=== PATIENT | male | born 1940 | race African-American/Black ===

== ENCOUNTER 2017-03-10 13:07 | Inpatient (IN) | payer OTHER, MEDICARE ==
[2017-03-10 13:38] LABS: HEMATOCRIT 49.7 % (39.0-51.0); HEMOGLOBIN 15.2 GM/DL (13.0-17.0); MEAN CORPUSCULAR HEMOGLOBIN 32.1 PG (27.0-34.0); MEAN CORPUSCULAR HGB CONC 30.5 % (32.0-36.0); MEAN PLATELET VOLUME 9.6 FL (7.0-11.0); PLATELET COUNT 272 TH/MM3 (150-450); RED BLOOD COUNT 4.73 MIL/MM3 (4.50-5.90); RED CELL DISTRIBUTION WIDTH 15.1 % (11.6-17.2); WHITE BLOOD COUNT 23.6 TH/MM3 (4.0-11.0)
[2017-03-10 13:43] LABS: HEMO FLAGS AUTO DIFF
[2017-03-10 13:58] LABS: ALBUMIN 3.5 GM/DL (3.4-5.0); ALT (GPT) 19 U/L (12-78); ANION GAP 28 MEQ/L (5-15); AST (GOT) 39 U/L (15-37); BICARBONATE 7.2 MEQ/L (21.0-32.0); BLOOD UREA NITROGEN 60 MG/DL (7-18); CALCIUM 9.7 MG/DL (8.5-10.1); CHLORIDE 101 MEQ/L (98-107); CREATININE 2.76 MG/DL (0.60-1.30); GLOMERULAR FILTRATION RATE 27 ML/MIN (>89); PHOSPHORUS 8.4 MG/DL (2.5-4.9); POTASSIUM 6.1 MEQ/L (3.5-5.1); SODIUM (NA) 136 MEQ/L (136-145)
[2017-03-10 14:06] LABS: ALKALINE PHOSPHATASE 126 U/L (45-117); LIPASE 7740 U/L (73-393); TOTAL BILIRUBIN ADULT 0.6 MG/DL (0.2-1.0); TROPONIN I LESS THAN 0.02 NG/ML (0.02-0.05)
[2017-03-10 14:08] LABS: GLUCOSE,RANDOM 568 MG/DL (74-106)
[2017-03-10] MEDS: SODIUM CHLOR 0.9% 1000 ML INJ 800 ML IV (14:11)
[2017-03-10] MEDS: SODIUM CHLOR 0.9% 1000 ML INJ 1,000 ML IV ×4 (14:11→21:00)
[2017-03-10 14:16] LABS: BETA-HYDROXYBUTYRATE 15.21 MMOL/L (0.00-0.39); CREATINE KINASE 1023 U/L (39-308)
[2017-03-10 14:27] LABS: BANDS 3 % (0-6); EOSINOPHILS 1 % (0-4); LYMPHOCYTES 1 % (9-44); METAMYELOCYTES 1 % (0-1); MONOCYTES 7 % (0-8); MYELOCYTES 1 % (0-0); NEUTROPHIL # MANUAL DIFF 21.5 TH/MM3 (1.8-7.7); POLYS (SEG NEUTROPHILS) 86 % (16-70); WBC DIFF SAMPLE 100
[2017-03-10 14:28] LABS: PLATELET ESTIMATE SMEAR NORMAL (NORMAL); PLATELET MORPHOLOGY NORMAL (NORMAL); SCAN/DIFF FINAL DIFF MANUAL
[2017-03-10] MEDS ORDERED: DEXT 5%-NACL 0.9% 1000 ML INJ 1,000 ML IV (14:33)
[2017-03-10 14:39] LABS: LACTIC ACID SEPSIS PROTOCOL 2.2 mmol/L (0.4-2.0)
[2017-03-10 14:40] LABS: BACTERIA, URINE OCC /hpf; BILIRUBIN, URINE NEG (NEG); BLOOD, URINE MOD (NEG); COMMENT (UR) CATH-CULTURE IND; CULTURE IF INDICATED CATH CULTURE IND; GLUCOSE,URINE 1000 mg/dL (NEG); HYALINE CAST, URINE 90 /lpf (RARE); KETONE, URINE 80 mg/dL (NEG); MUCUS URINE FEW /lpf (OCC); NITRITE,URINE NEG (NEG); PH, URINE 5.5 (5.0-8.5); SQUAMOUS EPITHELIAL CELL URINE 1 /hpf (0-5); URINE COLOR YELLOW (YELLW/STRAW); URINE LEUKOCYTE ESTERASE LARGE (NEG); WHITE BLOOD CELL CLUMPS MANY
[2017-03-10 14:50] LABS: BLOOD GAS VENOUS BASE EXCESS -22.7 mmol/L (-2-2); BLOOD GAS VENOUS HCO3 7 mmol/L (22-26); BLOOD GAS VENOUS O2 CONTENT 12.3 Vol % (9.0-17.0); BLOOD GAS VENOUS O2 HGB SAT 71 % (70-76); BLOOD GAS VENOUS PCO2 29 mmHg (44-48); BLOOD GAS VENOUS PO2 54 mmHg (35-40); BLOOD GAS VENOUS pH 6.98 (7.360-7.400)
[2017-03-10 14:51] LABS: CRITICAL VALUE YES; DRAW SITE CENTRAL LINE; FIO2 100 %; LITER FLOW 15 L/M; STAT YES; TEMP CORR TO 98.6
[2017-03-10] MEDS: LIDOCAINE HCL 2% 50 ML VIAL INFIL (15:00)
[2017-03-10] MEDS: SODIUM BICARBONATE 8.4% INJ 50 MEQ/50 ML SYR IV PUSH ×2 (15:17→15:18)
[2017-03-10] MEDS: INSULIN HUMAN REGULAR 1,000 UNITS/10 ML VIAL IV PUSH ×2 (15:17→16:45)
[2017-03-10 15:35] LABS: LACTIC ACID GHOST NOT REPORTABLE
[2017-03-10 15:59] LABS: CKMB 16.2 NG/ML (0.5-3.6); CKMB % 1.6 % (0.0-4.0)
[2017-03-10] MEDS ORDERED: ONDANSETRON HCL 4 MG/2 ML VIAL IV PUSH (16:00)
[2017-03-10] MEDS ORDERED: BISACODYL 10 MG SUPP RECTAL (16:00)
[2017-03-10] MEDS: RESP: ALBUTEROL 2.5 MG/IPRATROPIUM 0.5 MG NEB (SCH) INH ×2 (16:00→20:35)
[2017-03-10] MEDS ORDERED: SENNOSIDES 8.6 MG TAB PO (16:00)
[2017-03-10] MEDS: MISCELLANEOUS NURSING INFORMATION XX (16:00)
[2017-03-10] MEDS ORDERED: SODIUM CHLORIDE 0.9% FLUSH 10 ML FLUSH IV FLUSH ×3 (16:00→21:00)
[2017-03-10] MEDS ORDERED: RESP: ALBUTEROL 2.5 MG/3 ML NEB (PRN) INH (16:00)
[2017-03-10] MEDS ORDERED: MAGNESIUM HYDROXIDE SUSP 30 ML CUP PO (16:00)
[2017-03-10] MEDS ORDERED: LACTULOSE SYRUP 20 GM/30 ML CUP PO (16:00)
[2017-03-10] MEDS: INSULIN REGULAR (IV INFUSION) 100 UNITS in SODIUM CHLORIDE 0.9% INJ 99 ML IV (16:00)
[2017-03-10] MEDS ORDERED: CHLORHEXIDINE GLUCONATE 2 % 1 PACK (2 CLOTHS) TOP (16:00)
[2017-03-10] MEDS ORDERED: SODIUM PHOSPHATE INJ 15 MMOL in SODIUM CHLORIDE 0.9% INJ 100 ML IV (16:15)
[2017-03-10] MEDS ORDERED: Vancomycin Consult Pharmacy 1 EA OTHER (16:15)
[2017-03-10] MEDS ORDERED: FLUMAZENIL 0.5 MG/5 ML VIAL IV PUSH (16:15)
[2017-03-10] MEDS ORDERED: LORazepam 1 MG TAB PO (16:15)
[2017-03-10] MEDS ORDERED: POTASSIUM CHLOR 20 MEQ PREMIX 100 ML IV ×6 (16:15)
[2017-03-10] MEDS ORDERED: TERBUTALINE INJ 1 MG/ML AMP SQ (16:15)
[2017-03-10] MEDS ORDERED: POTASSIUM CHLOR 40 MEQ PREMIX 100 ML IV (16:15)
[2017-03-10] MEDS ORDERED: LORazepam 2 MG TAB PO (16:15)
[2017-03-10 16:28] LABS: LACTIC ACID SEPSIS REPEAT 2.2 mmol/L (0.4-2.0)
[2017-03-10 16:39] LABS: APTT (PATIENT) 20.2 SEC (24.3-30.1); INTERNATIONAL NORMALIZED RATIO 1.3 RATIO; PROTHROMBIN TIME - PATIENT 12.7 SEC (9.8-11.6)
[2017-03-10] MEDS: SODIUM BICARBONATE 8.4% SOLN 50 MEQ/50 ML VIAL SLOW IVP (16:45)
[2017-03-10] MEDS: CALCIUM GLUCONATE 10% 1 GM/10 ML VIAL SLOW IVP (17:00)
[2017-03-10] MEDS: ARTIFICIAL TEARS OPTH SOLN 15 ML BTL EACH EYE (18:00)
[2017-03-10] MEDS: MULTIVITAMIN INJ 10 ML, THIAMINE INJ 100 MG, FOLIC ACID INJ 1 MG in SODIUM CHLORID 0.9%... IV (18:00)
[2017-03-10] MEDS: PIPERACIL-TAZO 2.25 GM PREMIX 50 ML IV (18:00)
[2017-03-10] MEDS: VANCOMYCIN 1,000 MG/NS 250 ML IV (18:00)
[2017-03-10] MEDS: HEPARIN SODIUM - SQ 10,000 UNITS/ML VIAL SQ (18:00)
[2017-03-10] MEDS: DEXT 5%-NACL 0.9% 1000 ML INJ 1,000 ML IV ×2 (19:48→21:29)
[2017-03-10 19:58] LABS: MRSA PCR SURVEILLANCE MRSA NOT DETECTED (NOT DETECT)
[2017-03-10 21:17] LABS: ANION GAP 18 MEQ/L (5-15); BICARBONATE 14.6 MEQ/L (21.0-32.0); CALCIUM 7.8 MG/DL (8.5-10.1); CHLORIDE 121 MEQ/L (98-107); CREATININE 1.78 MG/DL (0.60-1.30); GLOMERULAR FILTRATION RATE 45 ML/MIN (>89); GLUCOSE,RANDOM 105 MG/DL (74-106); POTASSIUM 3.3 MEQ/L (3.5-5.1); SODIUM (NA) 154 MEQ/L (136-145)
[2017-03-10 21:18] LABS: ALCOHOL LESS THAN 3 MG/DL (0-5); BLOOD UREA NITROGEN 48 MG/DL (7-18)
[2017-03-10] MEDS: DOCUSATE SODIUM 50 MG/SENNA 8.6 MG TAB PO (21:38)
[2017-03-10] MEDS: SODIUM CHLORIDE 0.9% FLUSH 10 ML FLUSH IV FLUSH (21:38)
[2017-03-10 22:13] LABS: HEMOGLOBIN A1C 13.9 % (4.3-6.0); HEMOGLOBIN A1a 1.7 %; HEMOGLOBIN A1b 1.2 %; HEMOGLOBIN Ao 70.8 %; HEMOGLOBIN F 2.3 %; HEMOGLOBIN LA1C 3.9 %
[2017-03-10 23:14] LABS: AMPHETAMINE, URINE NEG (NEG); BARBITURATES, URINE NEG (NEG); BENZODIAZEPINE,URINE NEG (NEG); CANNABINOIDS, URINE NEG (NEG); COCAINE, URINE NEG (NEG)
[2017-03-10 23:15] LABS: CREATININE, RANDOM URINE 62.6 MG/DL
[2017-03-10 23:15] LABS: SODIUM,RANDOM URINE 40 MEQ/L
[2017-03-11] MEDS: INSULIN REGULAR (IV INFUSION) 100 UNITS in SODIUM CHLORIDE 0.9% INJ 99 ML IV ×3 (00:07→17:34)
[2017-03-11] MEDS: PIPERACIL-TAZO 2.25 GM PREMIX 50 ML IV ×4 (00:08→17:25)
[2017-03-11] MEDS: POTASSIUM CHLOR 40 MEQ PREMIX 100 ML IV ×2 (00:14→02:05)
[2017-03-11] MEDS: VANCOMYCIN 1,000 MG/NS 250 ML IV (00:48)
[2017-03-11] MEDS: DEXT 5%-NACL 0.9% 1000 ML INJ 1,000 ML IV ×2 (02:05→10:18)
[2017-03-11 02:37] LABS: AUTOMATED NEUTROPHIL # 15.1 TH/MM3 (1.8-7.7); BASOPHIL % 0.2 % (0.0-2.0); HEMATOCRIT 37.5 % (39.0-51.0); HEMOGLOBIN 12.3 GM/DL (13.0-17.0); LYMPH % 4.7 % (9.0-44.0); LYMPHOCYTE # 0.8 TH/MM3 (1.0-4.8); MEAN CELL VOLUME 98.3 FL (80.0-100.0); MEAN CORPUSCULAR HEMOGLOBIN 32.3 PG (27.0-34.0); MEAN CORPUSCULAR HGB CONC 32.9 % (32.0-36.0); MEAN PLATELET VOLUME 9.4 FL (7.0-11.0); MONO % 2.9 % (0.0-8.0); MONOCYTE # 0.5 TH/MM3 (0-0.9); NEUT % 92.2 % (16.0-70.0); PLATELET COUNT 199 TH/MM3 (150-450); RED BLOOD COUNT 3.82 MIL/MM3 (4.50-5.90); RED CELL DISTRIBUTION WIDTH 14.4 % (11.6-17.2); WHITE BLOOD COUNT 16.4 TH/MM3 (4.0-11.0)
[2017-03-11 02:39] LABS: HEMO FLAGS AUTO DIFF
[2017-03-11] MEDS: RESP: ALBUTEROL 2.5 MG/IPRATROPIUM 0.5 MG NEB (SCH) INH ×4 (02:48→20:20)
[2017-03-11 02:57] LABS: ANION GAP 17 MEQ/L (5-15); BICARBONATE 13.6 MEQ/L (21.0-32.0); BLOOD UREA NITROGEN 40 MG/DL (7-18); CALCIUM 7.7 MG/DL (8.5-10.1); CHLORIDE 125 MEQ/L (98-107); CREATININE 1.61 MG/DL (0.60-1.30); GLOMERULAR FILTRATION RATE 51 ML/MIN (>89); GLUCOSE,RANDOM 289 MG/DL (74-106); MAGNESIUM 1.8 MG/DL (1.5-2.5); PHOSPHORUS 0.5 MG/DL (2.5-4.9); POTASSIUM 3.5 MEQ/L (3.5-5.1)
[2017-03-11 02:59] LABS: SODIUM (NA) 156 MEQ/L (136-145)
[2017-03-11] MEDS: CHLORHEXIDINE GLUCONATE 2 % 1 PACK (2 CLOTHS) TOP (03:00)
[2017-03-11] MEDS: SODIUM CHLOR 0.9% 1000 ML INJ 1,000 ML IV ×6 (03:00→20:31)
[2017-03-11 03:06] LABS: BANDS 6 % (0-6); LYMPHOCYTES 4 % (9-44); METAMYELOCYTES 1 % (0-1); MONOCYTES 2 % (0-8); MYELOCYTES 1 % (0-0); NEUTROPHIL # MANUAL DIFF 15.4 TH/MM3 (1.8-7.7); POLYS (SEG NEUTROPHILS) 86 % (16-70); SCAN/DIFF FINAL DIFF MANUAL; WBC DIFF SAMPLE 100
[2017-03-11 03:07] LABS: PLATELET MORPHOLOGY NORMAL (NORMAL)
[2017-03-11 03:08] LABS: PLATELET ESTIMATE SMEAR NORMAL (NORMAL)
[2017-03-11 03:27] LABS: BETA-HYDROXYBUTYRATE 5.52 MMOL/L (0.00-0.39)
[2017-03-11 03:39] LABS: URINE FOR EOSINOPHILS NONE SEEN /HPF (NONE SEEN)
[2017-03-11] MEDS: HEPARIN SODIUM - SQ 10,000 UNITS/ML VIAL SQ ×2 (04:39→20:32)
[2017-03-11 07:36] LABS: POTASSIUM 3.9 MEQ/L (3.5-5.1)
[2017-03-11] MEDS: ARTIFICIAL TEARS OPTH SOLN 15 ML BTL EACH EYE ×4 (09:00→18:00)
[2017-03-11] MEDS: MULTIVITAMIN INJ 10 ML, THIAMINE INJ 100 MG, FOLIC ACID INJ 1 MG in SODIUM CHLORID 0.9%... IV (10:16)
[2017-03-11] MEDS: SODIUM CHLORIDE 0.9% FLUSH 10 ML FLUSH IV FLUSH ×2 (10:18→20:33)
[2017-03-11] MEDS: PANTOPRAZOLE SODIUM 40 MG VIAL IV PUSH (10:19)
[2017-03-11] MEDS: DOCUSATE SODIUM 50 MG/SENNA 8.6 MG TAB PO ×2 (10:19→20:33)
[2017-03-11] MEDS: HALOPERIDOL LACTATE 5 MG/ML AMP IM (10:26)
[2017-03-11] MEDS: POTASSIUM PHOSPHATE INJ 30 MMOL in SODIUM CHLOR 0.9% 250 ML INJ 250 ML IV (12:20)
[2017-03-11] MEDS: MIDAZOLAM HCL 2 MG/2 ML VIAL IV PUSH (12:30)
[2017-03-11] MEDS: SODIUM BICARBONATE 8.4% INJ 50 MEQ/50 ML SYR IV PUSH (13:23)
[2017-03-11] MEDS: MAGNESIUM SULFATE 1 GM PREMIX 100 ML IV ×2 (13:24→16:16)
[2017-03-11] MEDS: DEXMEDETOMIDINE INJ 200 MCG in SODIUM CHLORIDE 0.9% INJ 50 ML IV ×2 (13:25→21:01)
[2017-03-11] MEDS: DEXTROSE 5%-NACL 0.225% INJ 1,000 ML IV ×2 (13:40→20:32)
[2017-03-11 18:39] LABS: ANION GAP 17 MEQ/L (5-15); BLOOD UREA NITROGEN 24 MG/DL (7-18); CALCIUM 7.8 MG/DL (8.5-10.1); CHLORIDE 122 MEQ/L (98-107); CREATININE 1.06 MG/DL (0.60-1.30); GLOMERULAR FILTRATION RATE 82 ML/MIN (>89); GLUCOSE,RANDOM 362 MG/DL (74-106); PHOSPHORUS 2.2 MG/DL (2.5-4.9); POTASSIUM 3.8 MEQ/L (3.5-5.1); SODIUM (NA) 154 MEQ/L (136-145)
[2017-03-11] MEDS ORDERED: TERBUTALINE INJ 1 MG/ML AMP SQ (18:45)
[2017-03-11] MEDS ORDERED: PHENYLEPHRINE INJ 160 MG in DEXTROSE 5% IN WATE 500 ML INJ 484 ML IV (18:45)
[2017-03-11] MEDS: MORPHINE SULFATE 2 MG/ML INJ IV PUSH (21:30)
[2017-03-12] MEDS: PIPERACIL-TAZO 2.25 GM PREMIX 50 ML IV ×4 (00:29→18:54)
[2017-03-12] MEDS: SODIUM CHLOR 0.9% 1000 ML INJ 1,000 ML IV ×5 (00:29→15:45)
[2017-03-12] MEDS: RESP: ALBUTEROL 2.5 MG/IPRATROPIUM 0.5 MG NEB (SCH) INH ×4 (03:19→20:16)
[2017-03-12] MEDS: CHLORHEXIDINE GLUCONATE 2 % 1 PACK (2 CLOTHS) TOP (04:00)
[2017-03-12] MEDS: DEXMEDETOMIDINE INJ 200 MCG in SODIUM CHLORIDE 0.9% INJ 50 ML IV ×2 (04:03→15:24)
[2017-03-12 04:38] LABS: BASOPHIL % 0.2 % (0.0-2.0); HEMATOCRIT 33.7 % (39.0-51.0); HEMOGLOBIN 11.3 GM/DL (13.0-17.0); LYMPH % 5.8 % (9.0-44.0); LYMPHOCYTE # 0.8 TH/MM3 (1.0-4.8); MEAN CELL VOLUME 97.1 FL (80.0-100.0); MEAN CORPUSCULAR HEMOGLOBIN 32.5 PG (27.0-34.0); MEAN CORPUSCULAR HGB CONC 33.5 % (32.0-36.0); MEAN PLATELET VOLUME 9.9 FL (7.0-11.0); MONO % 6.7 % (0.0-8.0); MONOCYTE # 0.9 TH/MM3 (0-0.9); NEUT % 87.3 % (16.0-70.0); PLATELET COUNT 124 TH/MM3 (150-450); RED BLOOD COUNT 3.47 MIL/MM3 (4.50-5.90); RED CELL DISTRIBUTION WIDTH 14.3 % (11.6-17.2); WHITE BLOOD COUNT 13.8 TH/MM3 (4.0-11.0)
[2017-03-12 04:42] LABS: HEMO FLAGS AUTO DIFF
[2017-03-12 05:00] LABS: ALBUMIN 2.2 GM/DL (3.4-5.0); ALKALINE PHOSPHATASE 83 U/L (45-117); ALT (GPT) 22 U/L (12-78); ANION GAP 11 MEQ/L (5-15); AST (GOT) 56 U/L (15-37); BETA-HYDROXYBUTYRATE 0.08 MMOL/L (0.00-0.39); BLOOD UREA NITROGEN 16 MG/DL (7-18); CALCIUM 7.3 MG/DL (8.5-10.1); CHLORIDE 122 MEQ/L (98-107); CREATININE 0.96 MG/DL (0.60-1.30); GLOMERULAR FILTRATION RATE 92 ML/MIN (>89); GLUCOSE,RANDOM 91 MG/DL (74-106); MAGNESIUM 1.6 MG/DL (1.5-2.5); PHOSPHORUS 1.5 MG/DL (2.5-4.9); POTASSIUM 3.5 MEQ/L (3.5-5.1); RANDOM VANCOMYCIN 7.3 COMMENT; SODIUM (NA) 152 MEQ/L (136-145); TOTAL BILIRUBIN ADULT 0.4 MG/DL (0.2-1.0); TOTAL PROTEIN 5.8 GM/DL (6.4-8.2)
[2017-03-12] MEDS: DEXTROSE 5%-NACL 0.225% INJ 1,000 ML IV ×3 (05:18→21:52)
[2017-03-12] MEDS: HEPARIN SODIUM - SQ 10,000 UNITS/ML VIAL SQ ×2 (05:18→18:54)
[2017-03-12 05:23] LABS: BANDS 11 % (0-6); LYMPHOCYTES 5 % (9-44); METAMYELOCYTES 2 % (0-1); MONOCYTES 8 % (0-8); POLYS (SEG NEUTROPHILS) 74 % (16-70); WBC DIFF SAMPLE 100
[2017-03-12 05:24] LABS: ACANTHOCYTES OCC (NORMAL); PLATELET ESTIMATE SMEAR LOW (NORMAL); PLATELET MORPHOLOGY NORMAL (NORMAL); SCAN/DIFF FINAL DIFF MANUAL
[2017-03-12] MEDS: MULTIVITAMIN INJ 10 ML, THIAMINE INJ 100 MG, FOLIC ACID INJ 1 MG in SODIUM CHLORID 0.9%... IV (08:18)
[2017-03-12] MEDS: PANTOPRAZOLE SODIUM 40 MG VIAL IV PUSH (08:19)
[2017-03-12] MEDS: DOCUSATE SODIUM 50 MG/SENNA 8.6 MG TAB PO ×2 (08:19→21:00)
[2017-03-12] MEDS: SODIUM CHLORIDE 0.9% FLUSH 10 ML FLUSH IV FLUSH ×2 (08:19→21:51)
[2017-03-12] MEDS: ARTIFICIAL TEARS OPTH SOLN 15 ML BTL EACH EYE ×3 (09:00→18:00)
[2017-03-12] MEDS: HALOPERIDOL LACTATE 5 MG/ML AMP IM (10:23)
[2017-03-12] MEDS: VANCOMYCIN INJ 750 MG in SODIUM CHLOR 0.9% 250 ML INJ 250 ML IV (11:17)
[2017-03-12] MEDS: SODIUM PHOSPHATE INJ 15 MMOL in SODIUM CHLORIDE 0.9% INJ 100 ML IV (14:52)
[2017-03-12] MEDS: DC Insulin drip 2 hrs post basal insulin dose (16:45)
[2017-03-12] MEDS ORDERED: GLUCAGON 1 MG/ML VIAL OTHER (16:45)
[2017-03-12] MEDS: DC previous DKA orders (HMC 1917) (16:45)
[2017-03-12] MEDS: INSULIN DETEMIR 100 UNITS/ML VIAL SQ (18:55)
[2017-03-12] MEDS: FLUCONAZOLE 200 MG PREMIX BAG 100 ML IV (18:55)
[2017-03-12] MEDS: chlordiazePOXIDE 25 MG CAP PO (18:56)
[2017-03-12 20:28] LABS: CREATINE KINASE 921 U/L (39-308)
[2017-03-12 20:44] LABS: CKMB 11.7 NG/ML (0.5-3.6); CKMB % 1.3 % (0.0-4.0)
[2017-03-12] MEDS: INSULIN ASPART SUPPLEMENTAL SCALE SQ (21:00)
[2017-03-13] MEDS: chlordiazePOXIDE 25 MG CAP PO ×4 (00:27→23:17)
[2017-03-13] MEDS: PIPERACIL-TAZO 2.25 GM PREMIX 50 ML IV ×5 (00:27→23:17)
[2017-03-13] MEDS: MORPHINE SULFATE 2 MG/ML INJ IV PUSH (01:45)
[2017-03-13] MEDS: CHLORHEXIDINE GLUCONATE 2 % 1 PACK (2 CLOTHS) TOP (04:00)
[2017-03-13] MEDS: RESP: ALBUTEROL 2.5 MG/IPRATROPIUM 0.5 MG NEB (SCH) INH ×4 (04:02→19:56)
[2017-03-13 04:37] LABS: HEMATOCRIT 28.2 % (39.0-51.0); HEMOGLOBIN 9.9 GM/DL (13.0-17.0); MEAN CELL VOLUME 94.8 FL (80.0-100.0); MEAN CORPUSCULAR HEMOGLOBIN 33.3 PG (27.0-34.0); MEAN CORPUSCULAR HGB CONC 35.1 % (32.0-36.0); MEAN PLATELET VOLUME 9.6 FL (7.0-11.0); PLATELET COUNT 98 TH/MM3 (150-450); RED BLOOD COUNT 2.97 MIL/MM3 (4.50-5.90); RED CELL DISTRIBUTION WIDTH 14.4 % (11.6-17.2); WHITE BLOOD COUNT 6.8 TH/MM3 (4.0-11.0)
[2017-03-13 04:43] LABS: REVIEW FLAG FINAL
[2017-03-13] MEDS: HEPARIN SODIUM - SQ 10,000 UNITS/ML VIAL SQ ×2 (05:38→17:16)
[2017-03-13 06:23] LABS: ANION GAP 8 MEQ/L (5-15); BICARBONATE 21.7 MEQ/L (21.0-32.0); BLOOD UREA NITROGEN 11 MG/DL (7-18); CALCIUM 6.8 MG/DL (8.5-10.1); CHLORIDE 115 MEQ/L (98-107); CREATINE KINASE 639 U/L (39-308); CREATININE 0.66 MG/DL (0.60-1.30); GLOMERULAR FILTRATION RATE 142 ML/MIN (>89); GLUCOSE,RANDOM 79 MG/DL (74-106); SODIUM (NA) 145 MEQ/L (136-145)
[2017-03-13 06:37] LABS: POTASSIUM 2.9 MEQ/L (3.5-5.1)
[2017-03-13 07:06] LABS: CALCIUM-PROTEIN CORRECTED 8.1 MG/DL (8.5-10.1); CKMB 6.8 NG/ML (0.5-3.6); CKMB % 1.1 % (0.0-4.0); TOTAL PROTEIN 4.6 GM/DL (6.4-8.2)
[2017-03-13] MEDS: INSULIN ASPART SUPPLEMENTAL SCALE SQ ×4 (08:00→21:00)
[2017-03-13] MEDS: DEXTROSE 50% IN WATER 50 ML VIAL(D50) IV PUSH ×2 (08:29→08:30)
[2017-03-13] MEDS ORDERED: POTASSIUM PHOSPHATE MONOBASIC 500 MG TAB PO/TUBE (08:30)
[2017-03-13] MEDS ORDERED: POTASSIUM CHLOR 20 MEQ PREMIX 100 ML IV ×2 (08:30)
[2017-03-13] MEDS ORDERED: MAGNESIUM SULFATE INJ 2 GM in SODIUM CHLORIDE 0.9% INJ 96 ML IV (08:30)
[2017-03-13] MEDS ORDERED: MAGNESIUM OXIDE 400 MG TAB PO (08:30)
[2017-03-13] MEDS ORDERED: POTASSIUM CHLORIDE 25 MEQ EFFERVESCENT TAB PO (08:30)
[2017-03-13] MEDS ORDERED: SODIUM PHOSPHATE INJ 30 MMOL in SODIUM CHLOR 0.9% 250 ML INJ 240 ML IV (08:30)
[2017-03-13] MEDS ORDERED: POTASSIUM PHOSPHATE MONOBASIC 500 MG TAB PO (08:30)
[2017-03-13] MEDS ORDERED: POTASSIUM CHLOR 40 MEQ PREMIX 100 ML IV (08:30)
[2017-03-13] MEDS: INSULIN DETEMIR 100 UNITS/ML VIAL SQ (08:34)
[2017-03-13] MEDS: SODIUM CHLORIDE 0.9% FLUSH 10 ML FLUSH IV FLUSH ×2 (08:50→21:00)
[2017-03-13] MEDS: DOCUSATE SODIUM 50 MG/SENNA 8.6 MG TAB PO ×2 (08:50→21:00)
[2017-03-13] MEDS: PANTOPRAZOLE SODIUM 40 MG VIAL IV PUSH (08:50)
[2017-03-13] MEDS: ARTIFICIAL TEARS OPTH SOLN 15 ML BTL EACH EYE ×3 (09:00→17:16)
[2017-03-13 09:10] LABS: PHOSPHORUS 2.4 MG/DL (2.5-4.9)
[2017-03-13] MEDS: POTASSIUM CHLORIDE 25 MEQ EFFERVESCENT TAB PO (10:19)
[2017-03-13] MEDS: MULTIVITAMIN INJ 10 ML, THIAMINE INJ 100 MG, FOLIC ACID INJ 1 MG in SODIUM CHLORID 0.9%... IV (10:21)
[2017-03-13] MEDS: DEXTROSE 5%-NACL 0.225% INJ 1,000 ML IV (10:24)
[2017-03-13] MEDS: CALCIUM GLUCONATE INJ 2 GM in SODIUM CHLORIDE 0.9% INJ 100 ML IV (10:46)
[2017-03-13] MEDS: MORPHINE SULFATE 2 MG/ML INJ IV (12:24)
[2017-03-13] MEDS: VANCOMYCIN INJ 750 MG in SODIUM CHLOR 0.9% 250 ML INJ 250 ML IV (12:25)
[2017-03-13 23:41] LABS: BLOOD GAS BASE EXCESS -8.1 mmol/L (-2-2); BLOOD GAS CARBOXYHEMOGLOBIN 0.7 % (0-4); BLOOD GAS HCO3 15 mmol/L (22-26); BLOOD GAS O2 HGB SATURATION 82 % (90-100); BLOOD GAS OXYGEN CONTENT 14.2 Vol % (12.0-20.0); BLOOD GAS PCO2 20 mmHg (38-42); BLOOD GAS PO2 45 mmHg (61-120); BLOOD GAS TOTAL HGB 12.3 G/DL (12.0-16.0); TEMP CORR TO 98.6
[2017-03-13 23:42] LABS: CRITICAL VALUE YES; DRAW SITE RT BRACHIAL; FIO2 21 %; NUMBER OF ARTERIAL PUNCTURES 1; STAT NO
[2017-03-14] MEDS: METOPROLOL TARTRATE 5 MG/5 ML VIAL IV PUSH (00:13)
[2017-03-14 00:21] LABS: BLOOD GAS BASE EXCESS -6.9 mmol/L (-2-2); BLOOD GAS CARBOXYHEMOGLOBIN 0.9 % (0-4); BLOOD GAS HCO3 16 mmol/L (22-26); BLOOD GAS METHEMOGLOBIN 0.8 % (0-2); BLOOD GAS O2 HGB SATURATION 86 % (90-100); BLOOD GAS OXYGEN CONTENT 14.8 Vol % (12.0-20.0); BLOOD GAS PCO2 20 mmHg (38-42); BLOOD GAS PO2 50 mmHg (61-120); BLOOD GAS TOTAL HGB 12.2 G/DL (12.0-16.0); CRITICAL VALUE YES; LITER FLOW 4 L/M; OXYGEN DEVICE NASAL CANNULA; TEMP CORR TO 98.6
[2017-03-14 00:22] LABS: DRAW SITE RT BRACHIAL; NUMBER OF ARTERIAL PUNCTURES 1; STAT NO
[2017-03-14 01:07] LABS: HEMATOCRIT 35.9 % (39.0-51.0); HEMOGLOBIN 11.8 GM/DL (13.0-17.0); MEAN CELL VOLUME 95.2 FL (80.0-100.0); MEAN CORPUSCULAR HEMOGLOBIN 31.4 PG (27.0-34.0); PLATELET COUNT 113 TH/MM3 (150-450); RED BLOOD COUNT 3.77 MIL/MM3 (4.50-5.90); RED CELL DISTRIBUTION WIDTH 14.5 % (11.6-17.2); WHITE BLOOD COUNT 25.6 TH/MM3 (4.0-11.0)
[2017-03-14] MEDS: MICAFUNGIN INJ 150 MG in SODIUM CHLORIDE 0.9% INJ 100 ML IV (01:09)
[2017-03-14 01:25] LABS: HEMO FLAGS AUTO DIFF
[2017-03-14 01:34] LABS: LACTIC ACID 2.6 mmol/L (0.4-2.0)
[2017-03-14 01:48] LABS: ALBUMIN 1.9 GM/DL (3.4-5.0); ALKALINE PHOSPHATASE 87 U/L (45-117); ALT (GPT) 23 U/L (12-78); ANION GAP 10 MEQ/L (5-15); AST (GOT) 36 U/L (15-37); BICARBONATE 20.2 MEQ/L (21.0-32.0); BLOOD UREA NITROGEN 8 MG/DL (7-18); CALCIUM-PROTEIN CORRECTED 7.9 MG/DL (8.5-10.1); CHLORIDE 111 MEQ/L (98-107); CREATININE 0.85 MG/DL (0.60-1.30); GLOMERULAR FILTRATION RATE 106 ML/MIN (>89); GLUCOSE,RANDOM 106 MG/DL (74-106); LIPASE 168 U/L (73-393); MAGNESIUM 1.1 MG/DL (1.5-2.5); PHOSPHORUS 2.3 MG/DL (2.5-4.9); POTASSIUM 3.2 MEQ/L (3.5-5.1); SODIUM (NA) 141 MEQ/L (136-145); TOTAL BILIRUBIN ADULT 0.6 MG/DL (0.2-1.0); TOTAL PROTEIN 5.4 GM/DL (6.4-8.2)
[2017-03-14 02:01] LABS: BANDS 15 % (0-6); LYMPHOCYTES 2 % (9-44); MONOCYTES 1 % (0-8); NEUTROPHIL # MANUAL DIFF 24.8 TH/MM3 (1.8-7.7); POLYS (SEG NEUTROPHILS) 82 % (16-70); WBC DIFF SAMPLE 100
[2017-03-14 02:04] LABS: SCAN/DIFF FINAL DIFF MANUAL
[2017-03-14 02:06] LABS: PLATELET ESTIMATE SMEAR LOW (NORMAL); TOXIC GRANULATION 1+ (NORMAL)
[2017-03-14 02:07] LABS: OVALOCYTES 1+ (NORMAL); PLATELET MORPHOLOGY NORMAL (NORMAL); TOXIC VACUOLATION PRESENT (NONE SEEN)
[2017-03-14 02:08] LABS: ACANTHOCYTES OCC (NORMAL)
[2017-03-14] MEDS: IOHEXOL 350 MG/ML 10 ML VIAL (for RAD DIAG) IVCONTRAST (02:19)
[2017-03-14] MEDS: CHLORHEXIDINE GLUCONATE 2 % 1 PACK (2 CLOTHS) TOP (03:04)
[2017-03-14] MEDS: POTASSIUM PHOSPHATE INJ 30 MMOL in SODIUM CHLOR 0.9% 250 ML INJ 250 ML IV (03:40)
[2017-03-14] MEDS: MAGNESIUM SULFATE INJ 4 GM in SODIUM CHLORIDE 0.9% INJ 92 ML IV (03:41)
[2017-03-14] MEDS: RESP: ALBUTEROL 2.5 MG/IPRATROPIUM 0.5 MG NEB (SCH) INH ×3 (03:48→16:46)
[2017-03-14] MEDS: HEPARIN SODIUM - SQ 10,000 UNITS/ML VIAL SQ ×2 (05:24→19:20)
[2017-03-14] MEDS: PIPERACIL-TAZO 2.25 GM PREMIX 50 ML IV ×3 (05:25→19:21)
[2017-03-14 07:18] LABS: HEMATOCRIT 34.3 % (39.0-51.0); HEMOGLOBIN 11.7 GM/DL (13.0-17.0); MEAN CELL VOLUME 94.6 FL (80.0-100.0); MEAN CORPUSCULAR HEMOGLOBIN 32.3 PG (27.0-34.0); MEAN CORPUSCULAR HGB CONC 34.2 % (32.0-36.0); MEAN PLATELET VOLUME 11.3 FL (7.0-11.0); PLATELET COUNT 123 TH/MM3 (150-450); RED BLOOD COUNT 3.62 MIL/MM3 (4.50-5.90); RED CELL DISTRIBUTION WIDTH 14.3 % (11.6-17.2); REVIEW FLAG FINAL
[2017-03-14 07:42] LABS: ANION GAP 11 MEQ/L (5-15); BICARBONATE 19.5 MEQ/L (21.0-32.0); BLOOD UREA NITROGEN 9 MG/DL (7-18); CHLORIDE 109 MEQ/L (98-107); CREATINE KINASE 514 U/L (39-308); CREATININE 0.75 MG/DL (0.60-1.30); GLOMERULAR FILTRATION RATE 122 ML/MIN (>89); GLUCOSE,RANDOM 66 MG/DL (74-106); MAGNESIUM 1.2 MG/DL (1.5-2.5); PHOSPHORUS 2.1 MG/DL (2.5-4.9); SODIUM (NA) 139 MEQ/L (136-145)
[2017-03-14 07:47] LABS: CALCIUM 7.2 MG/DL (8.5-10.1); POTASSIUM 2.8 MEQ/L (3.5-5.1)
[2017-03-14] MEDS: INSULIN ASPART SUPPLEMENTAL SCALE SQ ×4 (08:00→20:44)
[2017-03-14 08:01] LABS: CALCIUM-PROTEIN CORRECTED 8.2 MG/DL (8.5-10.1); TOTAL PROTEIN 5.3 GM/DL (6.4-8.2)
[2017-03-14 08:12] LABS: CKMB 3.2 NG/ML (0.5-3.6); CKMB % 0.6 % (0.0-4.0)
[2017-03-14] MEDS: PANTOPRAZOLE SODIUM 40 MG VIAL IV PUSH (08:28)
[2017-03-14] MEDS: SODIUM CHLORIDE 0.9% FLUSH 10 ML FLUSH IV FLUSH ×2 (09:00→20:43)
[2017-03-14] MEDS: DOCUSATE SODIUM 50 MG/SENNA 8.6 MG TAB PO ×2 (09:00→20:43)
[2017-03-14] MEDS: ARTIFICIAL TEARS OPTH SOLN 15 ML BTL EACH EYE ×3 (09:00→18:00)
[2017-03-14] MEDS: INSULIN DETEMIR 100 UNITS/ML VIAL SQ (09:00)
[2017-03-14] MEDS: DEXT 5%-NACL 0.9% 1000 ML INJ 1,000 ML IV (11:37)
[2017-03-14] MEDS: PHARMACY ORDERED LAB (11:45)
[2017-03-14] MEDS: MULTIVITAMIN INJ 10 ML, THIAMINE INJ 100 MG, FOLIC ACID INJ 1 MG in SODIUM CHLORID 0.9%... IV (11:55)
[2017-03-14 13:20] LABS: MAGNESIUM 2.4 MG/DL (1.5-2.5)
[2017-03-14 13:25] LABS: VANCOMYCIN TROUGH 10.1 MCG/ML (5.0-10.0)
[2017-03-14] MEDS: VANCOMYCIN INJ 750 MG in SODIUM CHLOR 0.9% 250 ML INJ 250 ML IV (14:00)
[2017-03-14] MEDS: CALCIUM GLUCONATE INJ 1 GM in DEXTROSE 5% IN WATER 100ML INJ 100 ML IV (14:14)
[2017-03-14] MEDS: PHENYLEPHRINE INJ 160 MG in DEXTROSE 5% IN WATE 500 ML INJ 484 ML IV (19:00)
[2017-03-15] MEDS: PIPERACIL-TAZO 2.25 GM PREMIX 50 ML IV ×4 (00:06→18:02)
[2017-03-15] MEDS: MICAFUNGIN INJ 150 MG in SODIUM CHLORIDE 0.9% INJ 100 ML IV (00:54)
[2017-03-15] MEDS: CHLORHEXIDINE GLUCONATE 2 % 1 PACK (2 CLOTHS) TOP (03:49)
[2017-03-15] MEDS: HEPARIN SODIUM - SQ 10,000 UNITS/ML VIAL SQ ×2 (05:15→18:03)
[2017-03-15] MEDS: DEXT 5%-NACL 0.9% 1000 ML INJ 1,000 ML IV (05:15)
[2017-03-15 05:44] LABS: LACTIC ACID 2.2 mmol/L (0.4-2.0)
[2017-03-15 06:03] LABS: ANION GAP 13 MEQ/L (5-15); BICARBONATE 16.7 MEQ/L (21.0-32.0); BLOOD UREA NITROGEN 13 MG/DL (7-18); CALCIUM 7.7 MG/DL (8.5-10.1); CHLORIDE 114 MEQ/L (98-107); CREATININE 0.74 MG/DL (0.60-1.30); GLOMERULAR FILTRATION RATE 124 ML/MIN (>89); GLUCOSE,RANDOM 111 MG/DL (74-106); POTASSIUM 3.4 MEQ/L (3.5-5.1); SODIUM (NA) 144 MEQ/L (136-145)
[2017-03-15 06:26] LABS: HEMATOCRIT 33.3 % (39.0-51.0); HEMOGLOBIN 11.3 GM/DL (13.0-17.0); MEAN CELL VOLUME 94.6 FL (80.0-100.0); MEAN CORPUSCULAR HGB CONC 33.8 % (32.0-36.0); MEAN PLATELET VOLUME 10.9 FL (7.0-11.0); PLATELET COUNT 159 TH/MM3 (150-450); RED BLOOD COUNT 3.51 MIL/MM3 (4.50-5.90); RED CELL DISTRIBUTION WIDTH 14.5 % (11.6-17.2); WHITE BLOOD COUNT 33.8 TH/MM3 (4.0-11.0)
[2017-03-15 06:29] LABS: HEMO FLAGS AUTO DIFF
[2017-03-15 07:03] LABS: BLOOD GAS BASE EXCESS -11.9 mmol/L (-2-2); BLOOD GAS CARBOXYHEMOGLOBIN 0.7 % (0-4); BLOOD GAS HCO3 12 mmol/L (22-26); BLOOD GAS O2 HGB SATURATION 90 % (90-100); BLOOD GAS OXYGEN CONTENT 13.9 Vol % (12.0-20.0); BLOOD GAS PCO2 18 mmHg (38-42); BLOOD GAS PO2 63 mmHg (61-120); CRITICAL VALUE YES; TEMP CORR TO 98.6
[2017-03-15 07:04] LABS: DRAW SITE RT BRACHIAL; LITER FLOW 4 L/M; NUMBER OF ARTERIAL PUNCTURES 1; OXYGEN DEVICE NASAL CANNULA; STAT YES; ULNAR PULSE PRESENT
[2017-03-15] MEDS: ROCURONIUM INJ 50 MG/5 ML VIAL (07:41)
[2017-03-15] MEDS: ETOMIDATE 40 MG/20 ML VIAL (07:41)
[2017-03-15] MEDS: SUCCINYLCHOLINE CHLORIDE 200 MG/10 ML VIAL (07:42)
[2017-03-15 07:58] LABS: BANDS 40 % (0-6); LYMPHOCYTES 1 % (9-44); MONOCYTES 2 % (0-8); NEUTROPHIL # MANUAL DIFF 32.8 TH/MM3 (1.8-7.7); PLATELET ESTIMATE SMEAR NORMAL (NORMAL); PLATELET MORPHOLOGY NORMAL (NORMAL); POLYS (SEG NEUTROPHILS) 57 % (16-70); SCAN/DIFF FINAL DIFF MANUAL; WBC DIFF SAMPLE 100
[2017-03-15 07:59] LABS: BURR CELLS 2+ (NORMAL)
[2017-03-15] MEDS: INSULIN ASPART SUPPLEMENTAL SCALE SQ ×4 (08:00→21:00)
[2017-03-15 08:02] LABS: ACANTHOCYTES 1+ (NORMAL)
[2017-03-15] MEDS: DOCUSATE SODIUM 50 MG/SENNA 8.6 MG TAB PO ×2 (09:00→21:00)
[2017-03-15] MEDS: ARTIFICIAL TEARS OPTH SOLN 15 ML BTL EACH EYE ×2 (09:00→18:03)
[2017-03-15] MEDS: INSULIN DETEMIR 100 UNITS/ML VIAL SQ (09:00)
[2017-03-15] MEDS: CALCIUM GLUCONATE INJ 2 GM in SODIUM CHLORIDE 0.9% INJ 100 ML IV (09:27)
[2017-03-15] MEDS: SODIUM BICARBONATE 8.4% INJ 150 MEQ in WATER STERILE FOR INJ 850 ML IV ×4 (09:27→23:14)
[2017-03-15] MEDS: PANTOPRAZOLE SODIUM 40 MG VIAL IV PUSH (10:24)
[2017-03-15] MEDS: PROPOFOL 1000 MG/100 ML INJ 100 ML IV (10:25)
[2017-03-15] MEDS: SODIUM CHLORIDE 0.9% FLUSH 10 ML FLUSH IV FLUSH ×2 (10:35→21:46)
[2017-03-15] MEDS: MULTIVITAMIN INJ 10 ML, THIAMINE INJ 100 MG, FOLIC ACID INJ 1 MG in SODIUM CHLORID 0.9%... IV (10:36)
[2017-03-15 12:00] LABS: LIPASE 82 U/L (73-393)
[2017-03-15] MEDS ORDERED: VANCOMYCIN INJ 900 MG in SODIUM CHLOR 0.9% 250 ML INJ 250 ML IV (12:00)
[2017-03-15 12:10] LABS: CREATINE KINASE 291 U/L (39-308)
[2017-03-15 14:01] LABS: BLOOD GAS BASE EXCESS -11.5 mmol/L (-2-2); BLOOD GAS CARBOXYHEMOGLOBIN 0.4 % (0-4); BLOOD GAS HCO3 12 mmol/L (22-26); BLOOD GAS METHEMOGLOBIN 1.1 % (0-2); BLOOD GAS O2 HGB SATURATION 97 % (90-100); BLOOD GAS OXYGEN CONTENT 15.1 Vol % (12.0-20.0); BLOOD GAS PCO2 19 mmHg (38-42); BLOOD GAS PO2 167 mmHg (61-120); BLOOD GAS TOTAL HGB 10.8 G/DL (12.0-16.0); TEMP CORR TO 98.6
[2017-03-15 14:02] LABS: CRITICAL VALUE YES; DRAW SITE RT RADIAL; FIO2 40 %; NUMBER OF ARTERIAL PUNCTURES 1; OXYGEN DEVICE VENTILATOR; STAT NO; VENT SETTINGS A/C12/500/PEEP5
[2017-03-15] MEDS: AZTREONAM INJ 2,000 MG in SODIUM CHLORIDE 0.9% INJ 100 ML IV (16:21)
[2017-03-15] MEDS: SODIUM CHLOR 0.9% 1000 ML INJ 1,000 ML IV (19:30)
[2017-03-15] MEDS ORDERED: Vancomycin Consult Pharmacy 1 EA OTHER (19:30)
[2017-03-15] MEDS: IOHEXOL 350 MG/ML 10 ML VIAL (for RAD DIAG) IVCONTRAST (20:07)
[2017-03-15] MEDS: VANCOMYCIN 1,000 MG/NS 250 ML IV (21:45)
[2017-03-15] MEDS: CHLORHEXIDINE 0.12% (ORAL KIT) 15 ML CUP MT (21:47)
[2017-03-15] MEDS: VANCOMYCIN INJ 650 MG in SODIUM CHLOR 0.9% 250 ML INJ 250 ML IV (23:48)
[2017-03-16] MEDS: PIPERACIL-TAZO 2.25 GM PREMIX 50 ML IV ×5 (00:26→23:34)
[2017-03-16] MEDS: MICAFUNGIN INJ 150 MG in SODIUM CHLORIDE 0.9% INJ 100 ML IV (01:05)
[2017-03-16] MEDS: AZTREONAM INJ 2,000 MG in SODIUM CHLORIDE 0.9% INJ 100 ML IV ×2 (01:06→08:42)
[2017-03-16] MEDS: CHLORHEXIDINE GLUCONATE 2 % 1 PACK (2 CLOTHS) TOP (03:07)
[2017-03-16 04:49] LABS: AUTOMATED NEUTROPHIL # 22.7 TH/MM3 (1.8-7.7); BASOPHIL # 0.1 TH/MM3 (0-0.2); BASOPHIL % 0.3 % (0.0-2.0); EOSINOPHIL % 0.1 % (0.0-4.0); HEMATOCRIT 27.9 % (39.0-51.0); HEMO FLAGS DIFF FINAL; HEMOGLOBIN 9.7 GM/DL (13.0-17.0); LYMPH % 4.3 % (9.0-44.0); LYMPHOCYTE # 1.1 TH/MM3 (1.0-4.8); MEAN CELL VOLUME 93.2 FL (80.0-100.0); MEAN CORPUSCULAR HEMOGLOBIN 32.3 PG (27.0-34.0); MEAN CORPUSCULAR HGB CONC 34.6 % (32.0-36.0); MEAN PLATELET VOLUME 10.6 FL (7.0-11.0); MONO % 2.6 % (0.0-8.0); MONOCYTE # 0.6 TH/MM3 (0-0.9); NEUT % 92.7 % (16.0-70.0); PLATELET COUNT 189 TH/MM3 (150-450); RED CELL DISTRIBUTION WIDTH 14.3 % (11.6-17.2); WHITE BLOOD COUNT 24.5 TH/MM3 (4.0-11.0)
[2017-03-16 05:24] LABS: ALBUMIN 1.3 GM/DL (3.4-5.0); ALT (GPT) 19 U/L (12-78); ANION GAP 12 MEQ/L (5-15); AST (GOT) 28 U/L (15-37); BICARBONATE 26.2 MEQ/L (21.0-32.0); BLOOD UREA NITROGEN 16 MG/DL (7-18); CALCIUM 7.3 MG/DL (8.5-10.1); CHLORIDE 106 MEQ/L (98-107); CREATININE 0.69 MG/DL (0.60-1.30); DIRECT BILIRUBIN ADULT 0.4 MG/DL (0.0-0.2); GLOMERULAR FILTRATION RATE 135 ML/MIN (>89); GLUCOSE,RANDOM 115 MG/DL (74-106); MAGNESIUM 1.7 MG/DL (1.5-2.5); PHOSPHORUS 2.5 MG/DL (2.5-4.9); SODIUM (NA) 144 MEQ/L (136-145)
[2017-03-16 05:28] LABS: ALKALINE PHOSPHATASE 99 U/L (45-117); INDIRECT BILIRUBIN 0.5 MG/DL (0.0-0.8); TOTAL BILIRUBIN ADULT 0.9 MG/DL (0.2-1.0); TOTAL PROTEIN 4.9 GM/DL (6.4-8.2)
[2017-03-16 05:31] LABS: POTASSIUM 2.9 MEQ/L (3.5-5.1)
[2017-03-16 05:32] LABS: CALCIUM-PROTEIN CORRECTED 8.5 MG/DL (8.5-10.1)
[2017-03-16] MEDS: HEPARIN SODIUM - SQ 10,000 UNITS/ML VIAL SQ ×2 (05:39→18:17)
[2017-03-16] MEDS: POTASSIUM CHLOR 40 MEQ PREMIX 100 ML IV ×2 (05:40→08:11)
[2017-03-16 06:00] LABS: BLOOD GAS BASE EXCESS 1.8 mmol/L (-2-2); BLOOD GAS CARBOXYHEMOGLOBIN 0.7 % (0-4); BLOOD GAS HCO3 24 mmol/L (22-26); BLOOD GAS METHEMOGLOBIN 1.1 % (0-2); BLOOD GAS O2 HGB SATURATION 94 % (90-100); BLOOD GAS OXYGEN CONTENT 12.4 Vol % (12.0-20.0); BLOOD GAS PCO2 28 mmHg (38-42); BLOOD GAS PO2 72 mmHg (61-120); BLOOD GAS TOTAL HGB 9.3 G/DL (12.0-16.0); TEMP CORR TO 98.6
[2017-03-16 06:02] LABS: CRITICAL VALUE YES; DRAW SITE RT BRACHIAL; FIO2 40 %; NUMBER OF ARTERIAL PUNCTURES 1; OXYGEN DEVICE VENTILATOR; STAT NO; ULNAR PULSE PRESENT
[2017-03-16] MEDS: SODIUM BICARBONATE 8.4% INJ 150 MEQ in WATER STERILE FOR INJ 850 ML IV (06:23)
[2017-03-16] MEDS: NOREPINEPHRINE 4 MG/D5W 250 ML IV (07:00)
[2017-03-16] MEDS: INSULIN ASPART SUPPLEMENTAL SCALE SQ ×4 (08:00→20:21)
[2017-03-16] MEDS: CHLORHEXIDINE 0.12% (ORAL KIT) 15 ML CUP MT ×2 (08:00→20:21)
[2017-03-16 08:32] LABS: GLUCOSE,PLEURAL FLUID 56 MG/DL
[2017-03-16 08:32] LABS: ALBUMIN, PLEURAL FLUID 0.5 G/DL; TOTAL PROTEIN,PLEURAL FLUID 1.1 GM/DL
[2017-03-16] MEDS: RESP: ALBUTEROL 2.5 MG/IPRATROPIUM 0.5 MG NEB (SCH) NEB ×3 (08:32→20:47)
[2017-03-16 08:38] LABS: PLEURAL FLUID PH 8.5
[2017-03-16] MEDS: ARTIFICIAL TEARS OPTH SOLN 15 ML BTL EACH EYE ×3 (08:43→18:17)
[2017-03-16] MEDS: SODIUM CHLORIDE 0.9% FLUSH 10 ML FLUSH IV FLUSH ×3 (08:44→20:21)
[2017-03-16] MEDS: INSULIN DETEMIR 100 UNITS/ML VIAL SQ (09:00)
[2017-03-16] MEDS: DOCUSATE SODIUM 50 MG/SENNA 8.6 MG TAB PO ×2 (09:00→20:21)
[2017-03-16 09:13] LABS: PLEURAL FLUID LYMPHS 19 %; PLEURAL FLUID MONOS 3 %; PLEURAL FLUID WBC 10150 /MM3 (0-10)
[2017-03-16 09:14] LABS: PLEURAL FLUID POLYS (SEGS) 78 %; PLEURAL FLUID RBC 7875 /MM3 (0-0)
[2017-03-16] MEDS: CALCIUM GLUCONATE INJ 2 GM in SODIUM CHLORIDE 0.9% INJ 100 ML IV (09:37)
[2017-03-16] MEDS: PANTOPRAZOLE SODIUM 40 MG VIAL IV PUSH (09:37)
[2017-03-16] MEDS: MULTIVITAMIN INJ 10 ML, THIAMINE INJ 100 MG, FOLIC ACID INJ 1 MG in SODIUM CHLORID 0.9%... IV (11:52)
[2017-03-16] MEDS: PHENYLEPHRINE INJ 160 MG in DEXTROSE 5% IN WATE 500 ML INJ 484 ML IV (14:31)
[2017-03-16 15:15] LABS: BLOOD GAS BASE EXCESS -0.7 mmol/L (-2-2); BLOOD GAS CARBOXYHEMOGLOBIN 0.6 % (0-4); BLOOD GAS HCO3 22 mmol/L (22-26); BLOOD GAS METHEMOGLOBIN 1.2 % (0-2); BLOOD GAS O2 HGB SATURATION 84 % (90-100); BLOOD GAS OXYGEN CONTENT 12.2 Vol % (12.0-20.0); BLOOD GAS PCO2 29 mmHg (38-42); BLOOD GAS PO2 51 mmHg (61-120); BLOOD GAS TOTAL HGB 10.3 G/DL (12.0-16.0); TEMP CORR TO 98.6
[2017-03-16 15:16] LABS: CRITICAL VALUE YES; DRAW SITE LT RADIAL; FIO2 50 %; NUMBER OF ARTERIAL PUNCTURES 2; OXYGEN DEVICE VENTILATOR; STAT NO; ULNAR PULSE PRESENT; VENT SETTINGS A/C 18/500/PEEP5
[2017-03-16 16:12] LABS: POTASSIUM 3.9 MEQ/L (3.5-5.1)
[2017-03-16] MEDS: PROPOFOL 1000 MG/100 ML INJ 100 ML IV (21:13)
[2017-03-17] MEDS: MICAFUNGIN INJ 150 MG in SODIUM CHLORIDE 0.9% INJ 100 ML IV ×2 (00:43→23:44)
[2017-03-17] MEDS: NOREPINEPHRINE 4 MG/D5W 250 ML IV ×2 (00:43→18:52)
[2017-03-17] MEDS ORDERED: VANCOMYCIN INJ 750 MG in SODIUM CHLOR 0.9% 250 ML INJ 250 ML IV (03:00)
[2017-03-17] MEDS: RESP: ALBUTEROL 2.5 MG/IPRATROPIUM 0.5 MG NEB (SCH) NEB ×4 (03:08→20:16)
[2017-03-17] MEDS: CHLORHEXIDINE GLUCONATE 2 % 1 PACK (2 CLOTHS) TOP (03:13)
[2017-03-17 04:28] LABS: AUTOMATED NEUTROPHIL # 14.3 TH/MM3 (1.8-7.7); EOSINOPHIL % 0.2 % (0.0-4.0); HEMO FLAGS DIFF FINAL; HEMOGLOBIN 9.4 GM/DL (13.0-17.0); LYMPH % 8.5 % (9.0-44.0); LYMPHOCYTE # 1.4 TH/MM3 (1.0-4.8); MEAN CELL VOLUME 94.1 FL (80.0-100.0); MEAN CORPUSCULAR HEMOGLOBIN 31.7 PG (27.0-34.0); MEAN CORPUSCULAR HGB CONC 33.7 % (32.0-36.0); MONO % 4.5 % (0.0-8.0); MONOCYTE # 0.7 TH/MM3 (0-0.9); NEUT % 86.8 % (16.0-70.0); PLATELET COUNT 203 TH/MM3 (150-450); RED BLOOD COUNT 2.98 MIL/MM3 (4.50-5.90); RED CELL DISTRIBUTION WIDTH 14.6 % (11.6-17.2); WHITE BLOOD COUNT 16.5 TH/MM3 (4.0-11.0)
[2017-03-17 04:44] LABS: ANION GAP 10 MEQ/L (5-15); BICARBONATE 24.7 MEQ/L (21.0-32.0); BLOOD UREA NITROGEN 17 MG/DL (7-18); CALCIUM 7.3 MG/DL (8.5-10.1); CHLORIDE 108 MEQ/L (98-107); CREATININE 0.77 MG/DL (0.60-1.30); GLOMERULAR FILTRATION RATE 119 ML/MIN (>89); GLUCOSE,RANDOM 187 MG/DL (74-106); MAGNESIUM 1.7 MG/DL (1.5-2.5); PHOSPHORUS 2.2 MG/DL (2.5-4.9); POTASSIUM 3.2 MEQ/L (3.5-5.1); SODIUM (NA) 143 MEQ/L (136-145)
[2017-03-17 04:57] LABS: CALCIUM-PROTEIN CORRECTED 8.6 MG/DL (8.5-10.1); TOTAL PROTEIN 4.8 GM/DL (6.4-8.2)
[2017-03-17 05:01] LABS: BLOOD GAS BASE EXCESS -1.1 mmol/L (-2-2); BLOOD GAS CARBOXYHEMOGLOBIN 0.2 % (0-4); BLOOD GAS HCO3 22 mmol/L (22-26); BLOOD GAS METHEMOGLOBIN 1.1 % (0-2); BLOOD GAS O2 HGB SATURATION 98 % (90-100); BLOOD GAS OXYGEN CONTENT 21.1 Vol % (12.0-20.0); BLOOD GAS PCO2 28 mmHg (38-42); BLOOD GAS PO2 192 mmHg (61-120); BLOOD GAS TOTAL HGB 15.1 G/DL (12.0-16.0); TEMP CORR TO 98.6
[2017-03-17 05:02] LABS: CRITICAL VALUE NO; DRAW SITE RT RADIAL; FIO2 50 %; NUMBER OF ARTERIAL PUNCTURES 2; OXYGEN DEVICE VENTILATOR; STAT NO; ULNAR PULSE PRESENT; VENT SETTINGS AC/18/500/PEEP8
[2017-03-17] MEDS: PIPERACIL-TAZO 2.25 GM PREMIX 50 ML IV ×4 (05:10→23:44)
[2017-03-17] MEDS: HEPARIN SODIUM - SQ 10,000 UNITS/ML VIAL SQ ×2 (05:11→17:02)
[2017-03-17] MEDS: POTASSIUM PHOSPHATE INJ 30 MMOL in SODIUM CHLOR 0.9% 250 ML INJ 250 ML IV (06:26)
[2017-03-17] MEDS: MULTIVITAMIN INJ 10 ML, THIAMINE INJ 100 MG, FOLIC ACID INJ 1 MG in SODIUM CHLORID 0.9%... IV (07:49)
[2017-03-17] MEDS: PHENYLEPHRINE INJ 160 MG in DEXTROSE 5% IN WATE 500 ML INJ 484 ML IV (08:13)
[2017-03-17] MEDS: SODIUM CHLORIDE 0.9% FLUSH 10 ML FLUSH IV FLUSH ×3 (08:14→20:42)
[2017-03-17] MEDS: INSULIN DETEMIR 100 UNITS/ML VIAL SQ (08:14)
[2017-03-17] MEDS: ARTIFICIAL TEARS OPTH SOLN 15 ML BTL EACH EYE ×3 (08:14→17:03)
[2017-03-17] MEDS: CHLORHEXIDINE 0.12% (ORAL KIT) 15 ML CUP MT ×2 (08:14→20:42)
[2017-03-17] MEDS: PANTOPRAZOLE SODIUM 40 MG VIAL IV PUSH (08:14)
[2017-03-17] MEDS: DOCUSATE SODIUM 50 MG/SENNA 8.6 MG TAB PO ×2 (08:14→20:43)
[2017-03-17] MEDS: INSULIN ASPART SUPPLEMENTAL SCALE SQ ×4 (08:46→20:31)
[2017-03-17] MEDS: SODIUM CHLOR 0.9% 1000 ML INJ 1,000 ML IV ×2 (09:00→17:02)
[2017-03-17 12:40] LABS: LIPASE BODY FLUID LESS THAN 10 U/L; LIPASE SOURCE PLEURAL
[2017-03-17 12:53] LABS: AMYLASE BODY FLUID 294 U/L; AMYLASE BODY FLUID TYPE PLEURAL
[2017-03-17] MEDS: FAT EMULSION 20% INJ 250 ML (@10 mls/hr) IV (20:42)
[2017-03-17] MEDS: PROPOFOL 1000 MG/100 ML INJ 100 ML IV (20:43)
[2017-03-17] MEDS: CLINIMIX E 4.25/5 1000 mL- </= 42 mls/hr IV (21:22)
[2017-03-18] MEDS: RESP: ALBUTEROL 2.5 MG/IPRATROPIUM 0.5 MG NEB (SCH) NEB ×4 (03:16→20:14)
[2017-03-18] MEDS: HEPARIN SODIUM - SQ 10,000 UNITS/ML VIAL SQ ×2 (04:36→17:21)
[2017-03-18] MEDS: CHLORHEXIDINE GLUCONATE 2 % 1 PACK (2 CLOTHS) TOP ×2 (04:37→20:52)
[2017-03-18 05:31] LABS: BASOPHIL % 0.2 % (0.0-2.0); EOSINOPHIL # 0.1 TH/MM3 (0-0.4); EOSINOPHIL % 0.8 % (0.0-4.0); HEMATOCRIT 26.6 % (39.0-51.0); HEMO FLAGS DIFF FINAL; HEMOGLOBIN 9.2 GM/DL (13.0-17.0); LYMPHOCYTE # 1.3 TH/MM3 (1.0-4.8); MEAN CELL VOLUME 95.2 FL (80.0-100.0); MEAN CORPUSCULAR HEMOGLOBIN 32.8 PG (27.0-34.0); MEAN CORPUSCULAR HGB CONC 34.5 % (32.0-36.0); MEAN PLATELET VOLUME 9.9 FL (7.0-11.0); MONO % 5.8 % (0.0-8.0); MONOCYTE # 0.9 TH/MM3 (0-0.9); NEUT % 85.2 % (16.0-70.0); PLATELET COUNT 172 TH/MM3 (150-450); RED CELL DISTRIBUTION WIDTH 15.1 % (11.6-17.2); WHITE BLOOD COUNT 16.4 TH/MM3 (4.0-11.0)
[2017-03-18] MEDS: PIPERACIL-TAZO 2.25 GM PREMIX 50 ML IV ×4 (05:33→23:53)
[2017-03-18 06:11] LABS: ANION GAP 11 MEQ/L (5-15); BICARBONATE 22.2 MEQ/L (21.0-32.0); BLOOD UREA NITROGEN 15 MG/DL (7-18); CALCIUM 7.1 MG/DL (8.5-10.1); CHLORIDE 109 MEQ/L (98-107); CREATININE 0.71 MG/DL (0.60-1.30); GLOMERULAR FILTRATION RATE 130 ML/MIN (>89); GLUCOSE,RANDOM 231 MG/DL (74-106); MAGNESIUM 1.7 MG/DL (1.5-2.5); PHOSPHORUS 2.7 MG/DL (2.5-4.9); POTASSIUM 3.1 MEQ/L (3.5-5.1); SODIUM (NA) 142 MEQ/L (136-145)
[2017-03-18 06:24] LABS: CALCIUM-PROTEIN CORRECTED 8.5 MG/DL (8.5-10.1); TOTAL PROTEIN 4.6 GM/DL (6.4-8.2)
[2017-03-18] MEDS: INSULIN DETEMIR 100 UNITS/ML VIAL SQ (08:20)
[2017-03-18] MEDS: SODIUM CHLOR 0.9% 1000 ML INJ 1,000 ML IV ×2 (08:20→17:21)
[2017-03-18] MEDS: PANTOPRAZOLE SODIUM 40 MG VIAL IV PUSH (08:20)
[2017-03-18] MEDS: INSULIN ASPART SUPPLEMENTAL SCALE SQ ×4 (08:20→20:51)
[2017-03-18] MEDS: SODIUM CHLORIDE 0.9% FLUSH 10 ML FLUSH IV FLUSH ×3 (08:21→20:53)
[2017-03-18] MEDS: DOCUSATE SODIUM 50 MG/SENNA 8.6 MG TAB PO ×2 (08:21→20:51)
[2017-03-18] MEDS: CHLORHEXIDINE 0.12% (ORAL KIT) 15 ML CUP MT ×2 (08:21→20:53)
[2017-03-18] MEDS: ARTIFICIAL TEARS OPTH SOLN 15 ML BTL EACH EYE ×3 (08:21→17:21)
[2017-03-18] MEDS: POTASSIUM CHLOR 40 MEQ PREMIX 100 ML IV ×2 (08:39→10:58)
[2017-03-18] MEDS ORDERED: PHARMACY ORDERED LAB ×2 (11:45→14:45)
[2017-03-18] MEDS: PROPOFOL 1000 MG/100 ML INJ 100 ML IV (12:44)
[2017-03-18 14:04] LABS: BLOOD GAS BASE EXCESS -3.5 mmol/L (-2-2); BLOOD GAS CARBOXYHEMOGLOBIN 0.3 % (0-4); BLOOD GAS HCO3 20 mmol/L (22-26); BLOOD GAS METHEMOGLOBIN 0.8 % (0-2); BLOOD GAS O2 HGB SATURATION 98 % (90-100); BLOOD GAS OXYGEN CONTENT 12.9 Vol % (12.0-20.0); BLOOD GAS PCO2 30 mmHg (38-42); BLOOD GAS PO2 148 mmHg (61-120); BLOOD GAS TOTAL HGB 9.2 G/DL (12.0-16.0); CRITICAL VALUE NO; OXYGEN DEVICE VENTILATOR; TEMP CORR TO 98.6
[2017-03-18 14:05] LABS: DRAW SITE RT RADIAL; FIO2 40 %; NUMBER OF ARTERIAL PUNCTURES 1; STAT NO; ULNAR PULSE PRESENT; VENT SETTINGS A/C 500/18/8PEEP
[2017-03-18] MEDS: NOREPINEPHRINE 4 MG/D5W 250 ML IV (18:02)
[2017-03-18] MEDS: CLINIMIX E 4.25/5 1000 mL- </= 42 mls/hr IV (20:53)
[2017-03-18] MEDS: FAT EMULSION 20% INJ 250 ML (@10 mls/hr) IV (20:53)
[2017-03-18] MEDS: MICAFUNGIN INJ 150 MG in SODIUM CHLORIDE 0.9% INJ 100 ML IV (23:53)
[2017-03-19] MEDS: PROPOFOL 1000 MG/100 ML INJ 100 ML IV (02:10)
[2017-03-19] MEDS: RESP: ALBUTEROL 2.5 MG/IPRATROPIUM 0.5 MG NEB (SCH) NEB ×3 (03:21→16:00)
[2017-03-19] MEDS: SODIUM CHLOR 0.9% 1000 ML INJ 1,000 ML IV ×2 (04:25→08:59)
[2017-03-19 05:08] LABS: HEMATOCRIT 27.6 % (39.0-51.0); HEMOGLOBIN 9.2 GM/DL (13.0-17.0); MEAN CELL VOLUME 94.3 FL (80.0-100.0); MEAN CORPUSCULAR HEMOGLOBIN 31.4 PG (27.0-34.0); MEAN CORPUSCULAR HGB CONC 33.3 % (32.0-36.0); MEAN PLATELET VOLUME 9.8 FL (7.0-11.0); PLATELET COUNT 183 TH/MM3 (150-450); RED BLOOD COUNT 2.93 MIL/MM3 (4.50-5.90); RED CELL DISTRIBUTION WIDTH 14.9 % (11.6-17.2); REVIEW FLAG FINAL; WHITE BLOOD COUNT 11.5 TH/MM3 (4.0-11.0)
[2017-03-19] MEDS: HEPARIN SODIUM - SQ 10,000 UNITS/ML VIAL SQ ×2 (05:10→17:26)
[2017-03-19] MEDS: PIPERACIL-TAZO 2.25 GM PREMIX 50 ML IV ×4 (05:10→23:24)
[2017-03-19 05:34] LABS: ANION GAP 7 MEQ/L (5-15); BICARBONATE 23.2 MEQ/L (21.0-32.0); BLOOD UREA NITROGEN 15 MG/DL (7-18); CALCIUM 7.2 MG/DL (8.5-10.1); CHLORIDE 111 MEQ/L (98-107); GLOMERULAR FILTRATION RATE 158 ML/MIN (>89); GLUCOSE,RANDOM 135 MG/DL (74-106); MAGNESIUM 1.7 MG/DL (1.5-2.5); PHOSPHORUS 2.2 MG/DL (2.5-4.9); POTASSIUM 3.5 MEQ/L (3.5-5.1); SODIUM (NA) 141 MEQ/L (136-145)
[2017-03-19 05:54] LABS: CALCIUM-PROTEIN CORRECTED 8.5 MG/DL (8.5-10.1); TOTAL PROTEIN 4.7 GM/DL (6.4-8.2)
[2017-03-19] MEDS: PHENYLEPHRINE INJ 160 MG in DEXTROSE 5% IN WATE 500 ML INJ 484 ML IV (06:02)
[2017-03-19] MEDS: INSULIN ASPART SUPPLEMENTAL SCALE SQ ×4 (08:00→20:58)
[2017-03-19] MEDS: ARTIFICIAL TEARS OPTH SOLN 15 ML BTL EACH EYE ×3 (08:56→17:28)
[2017-03-19] MEDS: SODIUM CHLORIDE 0.9% FLUSH 10 ML FLUSH IV FLUSH ×3 (08:56→19:53)
[2017-03-19] MEDS: CHLORHEXIDINE 0.12% (ORAL KIT) 15 ML CUP MT ×2 (08:56→19:54)
[2017-03-19] MEDS: PANTOPRAZOLE SODIUM 40 MG VIAL IV PUSH (08:57)
[2017-03-19] MEDS: DOCUSATE SODIUM 50 MG/SENNA 8.6 MG TAB PO ×2 (08:57→19:53)
[2017-03-19] MEDS: INSULIN DETEMIR 100 UNITS/ML VIAL SQ (08:59)
[2017-03-19 18:50] LABS: LACTIC ACID 1.3 mmol/L (0.4-2.0)
[2017-03-19] MEDS: FAT EMULSION 20% INJ 250 ML (@10 mls/hr) IV (19:52)
[2017-03-19] MEDS: CLINIMIX E 4.25/5 1000 mL- </= 42 mls/hr IV (19:52)
[2017-03-20] MEDS: MICAFUNGIN INJ 150 MG in SODIUM CHLORIDE 0.9% INJ 100 ML IV (00:14)
[2017-03-20] MEDS: RESP: ALBUTEROL 2.5 MG/IPRATROPIUM 0.5 MG NEB (SCH) NEB ×2 (03:40→09:15)
[2017-03-20] MEDS: CHLORHEXIDINE GLUCONATE 2 % 1 PACK (2 CLOTHS) TOP (04:00)
[2017-03-20 04:50] LABS: HEMATOCRIT 25.9 % (39.0-51.0); HEMOGLOBIN 8.9 GM/DL (13.0-17.0); MEAN CELL VOLUME 93.4 FL (80.0-100.0); MEAN CORPUSCULAR HEMOGLOBIN 32.2 PG (27.0-34.0); MEAN CORPUSCULAR HGB CONC 34.5 % (32.0-36.0); MEAN PLATELET VOLUME 10.1 FL (7.0-11.0); PLATELET COUNT 188 TH/MM3 (150-450); RED BLOOD COUNT 2.77 MIL/MM3 (4.50-5.90); RED CELL DISTRIBUTION WIDTH 14.5 % (11.6-17.2); REVIEW FLAG FINAL; WHITE BLOOD COUNT 12.9 TH/MM3 (4.0-11.0)
[2017-03-20 05:03] LABS: ANION GAP 7 MEQ/L (5-15); BICARBONATE 21.1 MEQ/L (21.0-32.0); BLOOD UREA NITROGEN 16 MG/DL (7-18); CALCIUM 7.1 MG/DL (8.5-10.1); CHLORIDE 110 MEQ/L (98-107); CREATININE 0.58 MG/DL (0.60-1.30); GLOMERULAR FILTRATION RATE 165 ML/MIN (>89); GLUCOSE,RANDOM 146 MG/DL (74-106); MAGNESIUM 1.7 MG/DL (1.5-2.5); PHOSPHORUS 2.5 MG/DL (2.5-4.9); POTASSIUM 3.5 MEQ/L (3.5-5.1); SODIUM (NA) 138 MEQ/L (136-145)
[2017-03-20] MEDS: HEPARIN SODIUM - SQ 10,000 UNITS/ML VIAL SQ ×2 (05:08→16:38)
[2017-03-20] MEDS: PIPERACIL-TAZO 2.25 GM PREMIX 50 ML IV ×4 (05:08→23:34)
[2017-03-20 05:24] LABS: CALCIUM-PROTEIN CORRECTED 8.5 MG/DL (8.5-10.1); TOTAL PROTEIN 4.6 GM/DL (6.4-8.2)
[2017-03-20 05:35] LABS: BLOOD GAS CARBOXYHEMOGLOBIN 0.3 % (0-4); BLOOD GAS HCO3 19 mmol/L (22-26); BLOOD GAS METHEMOGLOBIN 1.1 % (0-2); BLOOD GAS O2 HGB SATURATION 97 % (90-100); BLOOD GAS OXYGEN CONTENT 21.1 Vol % (12.0-20.0); BLOOD GAS PCO2 25 mmHg (38-42); BLOOD GAS PO2 125 mmHg (61-120); BLOOD GAS TOTAL HGB 15.4 G/DL (12.0-16.0); CRITICAL VALUE NO; OXYGEN DEVICE VENT; TEMP CORR TO 98.6
[2017-03-20 05:36] LABS: DRAW SITE LA; FIO2 40 %; STAT NO; VENT SETTINGS AC18/500VT/+5PEEP
[2017-03-20] MEDS: DOCUSATE SODIUM 50 MG/SENNA 8.6 MG TAB PO ×2 (07:42→19:42)
[2017-03-20] MEDS: INSULIN DETEMIR 100 UNITS/ML VIAL SQ (07:42)
[2017-03-20] MEDS: SODIUM CHLORIDE 0.9% FLUSH 10 ML FLUSH IV FLUSH ×3 (07:42→19:42)
[2017-03-20] MEDS: PANTOPRAZOLE SODIUM 40 MG VIAL IV PUSH (07:43)
[2017-03-20] MEDS: ARTIFICIAL TEARS OPTH SOLN 15 ML BTL EACH EYE ×3 (07:43→16:38)
[2017-03-20] MEDS: INSULIN ASPART SUPPLEMENTAL SCALE SQ ×4 (07:43→20:24)
[2017-03-20] MEDS: CHLORHEXIDINE 0.12% (ORAL KIT) 15 ML CUP MT ×2 (10:33→19:42)
[2017-03-20] MEDS: fentaNYL DRIP 250 ML IV (13:28)
[2017-03-20 17:54] LABS: BLOOD GAS BASE EXCESS -2.1 mmol/L (-2-2); BLOOD GAS CARBOXYHEMOGLOBIN 0.6 % (0-4); BLOOD GAS HCO3 21 mmol/L (22-26); BLOOD GAS O2 HGB SATURATION 97 % (90-100); BLOOD GAS OXYGEN CONTENT 11.9 Vol % (12.0-20.0); BLOOD GAS PCO2 28 mmHg (38-42); BLOOD GAS PO2 143 mmHg (61-120); BLOOD GAS TOTAL HGB 8.5 G/DL (12.0-16.0); CRITICAL VALUE NO; DRAW SITE ART LINE; FIO2 40 %; OXYGEN DEVICE VENTILATOR; STAT NO; TEMP CORR TO 98.6; VENT SETTINGS A/C 500/15/5PEEP
[2017-03-20] MEDS: CLINIMIX E 4.25/5 1000 mL- </= 42 mls/hr IV (19:41)
[2017-03-20] MEDS: FAT EMULSION 20% INJ 250 ML (@10 mls/hr) IV (19:41)
[2017-03-21] MEDS: MICAFUNGIN INJ 150 MG in SODIUM CHLORIDE 0.9% INJ 100 ML IV (00:15)
[2017-03-21] MEDS: CHLORHEXIDINE GLUCONATE 2 % 1 PACK (2 CLOTHS) TOP (02:19)
[2017-03-21 03:42] LABS: AUTOMATED NEUTROPHIL # 8.1 TH/MM3 (1.8-7.7); BASOPHIL % 0.4 % (0.0-2.0); EOSINOPHIL # 0.1 TH/MM3 (0-0.4); EOSINOPHIL % 1.1 % (0.0-4.0); HEMATOCRIT 26.1 % (39.0-51.0); HEMOGLOBIN 9.3 GM/DL (13.0-17.0); LYMPH % 16.7 % (9.0-44.0); LYMPHOCYTE # 1.8 TH/MM3 (1.0-4.8); MEAN CORPUSCULAR HEMOGLOBIN 33.2 PG (27.0-34.0); MEAN CORPUSCULAR HGB CONC 35.7 % (32.0-36.0); MEAN PLATELET VOLUME 9.9 FL (7.0-11.0); MONO % 5.7 % (0.0-8.0); MONOCYTE # 0.6 TH/MM3 (0-0.9); NEUT % 76.1 % (16.0-70.0); PLATELET COUNT 200 TH/MM3 (150-450); RED BLOOD COUNT 2.81 MIL/MM3 (4.50-5.90); RED CELL DISTRIBUTION WIDTH 14.3 % (11.6-17.2); WHITE BLOOD COUNT 10.6 TH/MM3 (4.0-11.0)
[2017-03-21 03:43] LABS: HEMO FLAGS AUTO DIFF
[2017-03-21 03:45] LABS: ANION GAP 7 MEQ/L (5-15); BICARBONATE 23.8 MEQ/L (21.0-32.0); BLOOD UREA NITROGEN 15 MG/DL (7-18); CALCIUM 7.3 MG/DL (8.5-10.1); CHLORIDE 108 MEQ/L (98-107); CREATININE 0.57 MG/DL (0.60-1.30); GLOMERULAR FILTRATION RATE 168 ML/MIN (>89); GLUCOSE,RANDOM 112 MG/DL (74-106); LIPASE 134 U/L (73-393); POTASSIUM 3.6 MEQ/L (3.5-5.1); SODIUM (NA) 139 MEQ/L (136-145)
[2017-03-21 03:45] LABS: LACTIC ACID 0.9 mmol/L (0.4-2.0)
[2017-03-21 03:55] LABS: CALCIUM-PROTEIN CORRECTED 8.6 MG/DL (8.5-10.1); TOTAL PROTEIN 4.8 GM/DL (6.4-8.2)
[2017-03-21 04:24] LABS: BANDS 6 % (0-6); EOSINOPHILS 1 % (0-4); LYMPHOCYTES 5 % (9-44); METAMYELOCYTES 1 % (0-1); MONOCYTES 1 % (0-8); MYELOCYTES 1 % (0-0); NEUTROPHIL # MANUAL DIFF 9.9 TH/MM3 (1.8-7.7); POLYS (SEG NEUTROPHILS) 85 % (16-70); WBC DIFF SAMPLE 100
[2017-03-21 04:25] LABS: PLATELET ESTIMATE SMEAR NORMAL (NORMAL); PLATELET MORPHOLOGY NORMAL (NORMAL); SCAN/DIFF FINAL DIFF MANUAL
[2017-03-21] MEDS: PIPERACIL-TAZO 2.25 GM PREMIX 50 ML IV ×3 (05:00→17:23)
[2017-03-21] MEDS: DOCUSATE SODIUM 50 MG/SENNA 8.6 MG TAB PO ×2 (07:21→21:02)
[2017-03-21] MEDS: INSULIN ASPART SUPPLEMENTAL SCALE SQ ×4 (07:22→21:00)
[2017-03-21] MEDS: SODIUM CHLORIDE 0.9% FLUSH 10 ML FLUSH IV FLUSH ×3 (07:22→21:02)
[2017-03-21] MEDS: PANTOPRAZOLE SODIUM 40 MG VIAL IV PUSH (07:22)
[2017-03-21] MEDS: ARTIFICIAL TEARS OPTH SOLN 15 ML BTL EACH EYE ×3 (07:22→17:21)
[2017-03-21] MEDS: CHLORHEXIDINE 0.12% (ORAL KIT) 15 ML CUP MT ×2 (07:23→21:01)
[2017-03-21] MEDS: INSULIN DETEMIR 100 UNITS/ML VIAL SQ (07:23)
[2017-03-21] MEDS: fentaNYL DRIP 250 ML IV (13:26)
[2017-03-21] MEDS: DEXTROSE 50% IN WATER 50 ML VIAL(D50) IV PUSH (17:23)
[2017-03-21] MEDS: CLINIMIX E 4.25/5 1000 mL- </= 42 mls/hr IV (21:01)
[2017-03-21] MEDS: FAT EMULSION 20% INJ 250 ML (@10 mls/hr) IV (21:02)
[2017-03-21] MEDS: PHENYLEPHRINE INJ 160 MG in DEXTROSE 5% IN WATE 500 ML INJ 484 ML IV (21:16)
[2017-03-22] MEDS: PIPERACIL-TAZO 2.25 GM PREMIX 50 ML IV ×2 (01:27→05:51)
[2017-03-22] MEDS: MICAFUNGIN INJ 150 MG in SODIUM CHLORIDE 0.9% INJ 100 ML IV (01:27)
[2017-03-22] MEDS: fentaNYL DRIP 250 ML IV ×2 (06:09→23:55)
[2017-03-22 06:52] LABS: AUTOMATED NEUTROPHIL # 10.1 TH/MM3 (1.8-7.7); BASOPHIL # 0.1 TH/MM3 (0-0.2); BASOPHIL % 0.5 % (0.0-2.0); EOSINOPHIL # 0.1 TH/MM3 (0-0.4); EOSINOPHIL % 1.1 % (0.0-4.0); HEMATOCRIT 27.7 % (39.0-51.0); HEMOGLOBIN 9.2 GM/DL (13.0-17.0); LYMPH % 11.5 % (9.0-44.0); LYMPHOCYTE # 1.4 TH/MM3 (1.0-4.8); MEAN CELL VOLUME 92.7 FL (80.0-100.0); MEAN CORPUSCULAR HEMOGLOBIN 30.8 PG (27.0-34.0); MEAN CORPUSCULAR HGB CONC 33.2 % (32.0-36.0); MEAN PLATELET VOLUME 9.3 FL (7.0-11.0); MONO % 3.8 % (0.0-8.0); MONOCYTE # 0.5 TH/MM3 (0-0.9); NEUT % 83.1 % (16.0-70.0); PLATELET COUNT 277 TH/MM3 (150-450); RED BLOOD COUNT 2.98 MIL/MM3 (4.50-5.90); RED CELL DISTRIBUTION WIDTH 14.6 % (11.6-17.2); WHITE BLOOD COUNT 12.1 TH/MM3 (4.0-11.0)
[2017-03-22 06:56] LABS: HEMO FLAGS AUTO DIFF
[2017-03-22 07:23] LABS: ANION GAP 10 MEQ/L (5-15); BICARBONATE 20.8 MEQ/L (21.0-32.0); BLOOD UREA NITROGEN 13 MG/DL (7-18); CALCIUM 7.8 MG/DL (8.5-10.1); CHLORIDE 103 MEQ/L (98-107); CREATININE 0.51 MG/DL (0.60-1.30); GLOMERULAR FILTRATION RATE 191 ML/MIN (>89); GLUCOSE,RANDOM 157 MG/DL (74-106); POTASSIUM 3.5 MEQ/L (3.5-5.1); SODIUM (NA) 134 MEQ/L (136-145)
[2017-03-22] MEDS: PANTOPRAZOLE SODIUM 40 MG VIAL IV PUSH (08:12)
[2017-03-22] MEDS: DOCUSATE SODIUM 50 MG/SENNA 8.6 MG TAB PO (08:12)
[2017-03-22] MEDS: ARTIFICIAL TEARS OPTH SOLN 15 ML BTL EACH EYE ×3 (08:13→18:00)
[2017-03-22] MEDS: CHLORHEXIDINE 0.12% (ORAL KIT) 15 ML CUP MT ×2 (08:13→21:34)
[2017-03-22] MEDS: SODIUM CHLORIDE 0.9% FLUSH 10 ML FLUSH IV FLUSH ×3 (08:13→21:34)
[2017-03-22] MEDS: INSULIN ASPART SUPPLEMENTAL SCALE SQ ×4 (08:23→23:55)
[2017-03-22 08:46] LABS: BANDS 4 % (0-6); BASOPHILS 1 % (0-2); EOSINOPHILS 2 % (0-4); LYMPHOCYTES 11 % (9-44); METAMYELOCYTES 2 % (0-1); MONOCYTES 3 % (0-8); MYELOCYTES 1 % (0-0); POLYS (SEG NEUTROPHILS) 76 % (16-70); WBC DIFF SAMPLE 100
[2017-03-22 08:49] LABS: KERATOCYTES OCC (NORMAL)
[2017-03-22 08:50] LABS: PLATELET ESTIMATE SMEAR NORMAL (NORMAL); PLATELET MORPHOLOGY NORMAL (NORMAL); SCAN/DIFF FINAL DIFF MANUAL
[2017-03-22] MEDS ORDERED: PIPERACIL-TAZO 4.5 GM PREMIX 100 ML IV (12:00)
[2017-03-22] MEDS: RESP: ALBUTEROL 2.5 MG/IPRATROPIUM 0.5 MG NEB (SCH) NEB ×2 (15:51→19:49)
[2017-03-22] MEDS: CLINIMIX E 4.25/5 1000 mL- </= 42 mls/hr IV (18:59)
[2017-03-22] MEDS: FAT EMULSION 20% INJ 250 ML (@10 mls/hr) IV (21:33)
[2017-03-23] MEDS: MICAFUNGIN INJ 150 MG in SODIUM CHLORIDE 0.9% INJ 100 ML IV (00:32)
[2017-03-23] MEDS: RESP: ALBUTEROL 2.5 MG/IPRATROPIUM 0.5 MG NEB (SCH) NEB ×4 (04:11→19:59)
[2017-03-23] MEDS: INSULIN ASPART SUPPLEMENTAL SCALE SQ ×3 (06:00→19:41)
[2017-03-23 06:20] LABS: AUTOMATED NEUTROPHIL # 9.2 TH/MM3 (1.8-7.7); BASOPHIL # 0.1 TH/MM3 (0-0.2); BASOPHIL % 0.5 % (0.0-2.0); EOSINOPHIL # 0.1 TH/MM3 (0-0.4); EOSINOPHIL % 0.6 % (0.0-4.0); HEMATOCRIT 25.8 % (39.0-51.0); HEMOGLOBIN 8.7 GM/DL (13.0-17.0); LYMPH % 11.9 % (9.0-44.0); LYMPHOCYTE # 1.3 TH/MM3 (1.0-4.8); MEAN CELL VOLUME 93.5 FL (80.0-100.0); MEAN CORPUSCULAR HEMOGLOBIN 31.6 PG (27.0-34.0); MEAN CORPUSCULAR HGB CONC 33.8 % (32.0-36.0); MEAN PLATELET VOLUME 9.4 FL (7.0-11.0); MONO % 4.3 % (0.0-8.0); MONOCYTE # 0.5 TH/MM3 (0-0.9); NEUT % 82.7 % (16.0-70.0); PLATELET COUNT 335 TH/MM3 (150-450); RED BLOOD COUNT 2.76 MIL/MM3 (4.50-5.90); RED CELL DISTRIBUTION WIDTH 14.5 % (11.6-17.2); WHITE BLOOD COUNT 11.1 TH/MM3 (4.0-11.0)
[2017-03-23 06:28] LABS: HEMO FLAGS AUTO DIFF
[2017-03-23 07:01] LABS: ALBUMIN 0.9 GM/DL (3.4-5.0); ALT (GPT) 16 U/L (12-78); ANION GAP 14 MEQ/L (5-15); AST (GOT) 23 U/L (15-37); BICARBONATE 18.3 MEQ/L (21.0-32.0); BLOOD UREA NITROGEN 13 MG/DL (7-18); CALCIUM 7.8 MG/DL (8.5-10.1); CHLORIDE 102 MEQ/L (98-107); CREATININE 0.45 MG/DL (0.60-1.30); GLOMERULAR FILTRATION RATE 221 ML/MIN (>89); GLUCOSE,RANDOM 199 MG/DL (74-106); MAGNESIUM 1.7 MG/DL (1.5-2.5); POTASSIUM 3.5 MEQ/L (3.5-5.1); SODIUM (NA) 134 MEQ/L (136-145)
[2017-03-23 07:03] LABS: ALKALINE PHOSPHATASE 128 U/L (45-117); TOTAL BILIRUBIN ADULT 0.4 MG/DL (0.2-1.0); TOTAL PROTEIN 5.6 GM/DL (6.4-8.2)
[2017-03-23 07:40] LABS: BANDS 15 % (0-6); LYMPHOCYTES 5 % (9-44); METAMYELOCYTES 1 % (0-1); MONOCYTES 4 % (0-8); MYELOCYTES 3 % (0-0); NEUTROPHIL # MANUAL DIFF 10.1 TH/MM3 (1.8-7.7); PLATELET ESTIMATE SMEAR NORMAL (NORMAL); PLATELET MORPHOLOGY NORMAL (NORMAL); POLYS (SEG NEUTROPHILS) 72 % (16-70); SCAN/DIFF FINAL DIFF MANUAL; TOXIC GRANULATION 1+ (NORMAL); WBC DIFF SAMPLE 100
[2017-03-23] MEDS: PANTOPRAZOLE SODIUM 40 MG VIAL IV PUSH (09:43)
[2017-03-23] MEDS: ARTIFICIAL TEARS OPTH SOLN 15 ML BTL EACH EYE ×3 (09:43→18:02)
[2017-03-23] MEDS: GLYCERIN ADULT 2 GM SUPP RECTAL (09:43)
[2017-03-23] MEDS: SODIUM CHLORIDE 0.9% FLUSH 10 ML FLUSH IV FLUSH ×3 (09:44→21:19)
[2017-03-23] MEDS: CHLORHEXIDINE 0.12% (ORAL KIT) 15 ML CUP MT ×2 (09:44→21:19)
[2017-03-23] MEDS: THIAMINE INJ 100 MG in SODIUM CHLORIDE 0.9% INJ 100 ML IV (09:44)
[2017-03-23] MEDS: CLINIMIX E 4.25/5 1000 mL- </= 42 mls/hr IV (14:37)
[2017-03-23] MEDS: MAGNESIUM SULFATE 1 GM PREMIX 100 ML IV ×2 (15:00→16:37)
[2017-03-23] MEDS: POTASSIUM CHLOR 40 MEQ PREMIX 100 ML IV (15:01)
[2017-03-23] MEDS: CLINIMIX E 4.25/5 2000 mL- >42 mls/hr IV (15:21)
[2017-03-23] MEDS: prednisoLONE ACETATE 1% OPHT SUSP 5 ML BTL LEFT EYE ×2 (18:02→21:17)
[2017-03-23] MEDS: fentaNYL DRIP 250 ML IV (18:03)
[2017-03-23] MEDS: HEPARIN SODIUM - SQ 10,000 UNITS/ML VIAL SQ (18:03)
[2017-03-23] MEDS: INSULIN DETEMIR 100 UNITS/ML VIAL SQ (21:00)
[2017-03-23] MEDS: LATANOPROST 0.005% OPHT SOLN 2.5 ML BTL EACH EYE (21:17)
[2017-03-23] MEDS: FAT EMULSION 20% INJ 250 ML (@10 mls/hr) IV (21:18)
[2017-03-23] MEDS: PHENYLEPHRINE INJ 160 MG in DEXTROSE 5% IN WATE 500 ML INJ 484 ML IV (21:57)
[2017-03-24] MEDS: MICAFUNGIN INJ 150 MG in SODIUM CHLORIDE 0.9% INJ 100 ML IV (00:09)
[2017-03-24] MEDS: RESP: ALBUTEROL 2.5 MG/IPRATROPIUM 0.5 MG NEB (SCH) NEB ×4 (03:45→21:19)
[2017-03-24] MEDS: fentaNYL DRIP 250 ML IV ×2 (04:10→13:35)
[2017-03-24] MEDS: HEPARIN SODIUM - SQ 10,000 UNITS/ML VIAL SQ ×2 (05:35→18:33)
[2017-03-24] MEDS: INSULIN ASPART SUPPLEMENTAL SCALE SQ ×4 (05:41→18:33)
[2017-03-24 07:20] LABS: AUTOMATED NEUTROPHIL # 9.8 TH/MM3 (1.8-7.7); BASOPHIL % 0.3 % (0.0-2.0); EOSINOPHIL % 0.4 % (0.0-4.0); HEMATOCRIT 24.3 % (39.0-51.0); HEMO FLAGS DIFF FINAL; HEMOGLOBIN 8.2 GM/DL (13.0-17.0); LYMPH % 9.8 % (9.0-44.0); LYMPHOCYTE # 1.1 TH/MM3 (1.0-4.8); MEAN CELL VOLUME 94.6 FL (80.0-100.0); MEAN CORPUSCULAR HGB CONC 33.8 % (32.0-36.0); MEAN PLATELET VOLUME 9.6 FL (7.0-11.0); MONO % 5.2 % (0.0-8.0); MONOCYTE # 0.6 TH/MM3 (0-0.9); NEUT % 84.3 % (16.0-70.0); PLATELET COUNT 364 TH/MM3 (150-450); RED BLOOD COUNT 2.57 MIL/MM3 (4.50-5.90); RED CELL DISTRIBUTION WIDTH 14.6 % (11.6-17.2); WHITE BLOOD COUNT 11.7 TH/MM3 (4.0-11.0)
[2017-03-24 07:37] LABS: ALBUMIN 0.9 GM/DL (3.4-5.0); ANION GAP 9 MEQ/L (5-15); AST (GOT) 18 U/L (15-37); BICARBONATE 22.7 MEQ/L (21.0-32.0); BLOOD UREA NITROGEN 14 MG/DL (7-18); CALCIUM 8.1 MG/DL (8.5-10.1); CHLORIDE 102 MEQ/L (98-107); GLOMERULAR FILTRATION RATE 253 ML/MIN (>89); GLUCOSE,RANDOM 153 MG/DL (74-106); POTASSIUM 4.2 MEQ/L (3.5-5.1); SODIUM (NA) 134 MEQ/L (136-145)
[2017-03-24 07:40] LABS: ALKALINE PHOSPHATASE 106 U/L (45-117); ALT (GPT) 11 U/L (12-78); PHOSPHORUS 2.4 MG/DL (2.5-4.9); TOTAL BILIRUBIN ADULT 0.4 MG/DL (0.2-1.0); TOTAL PROTEIN 5.5 GM/DL (6.4-8.2)
[2017-03-24] MEDS: GLYCERIN ADULT 2 GM SUPP RECTAL (09:10)
[2017-03-24] MEDS: SODIUM CHLORIDE 0.9% FLUSH 10 ML FLUSH IV FLUSH ×4 (09:10→19:52)
[2017-03-24] MEDS: PANTOPRAZOLE SODIUM 40 MG VIAL IV PUSH (09:10)
[2017-03-24] MEDS: THIAMINE INJ 100 MG in SODIUM CHLORIDE 0.9% INJ 100 ML IV (09:10)
[2017-03-24] MEDS: CHLORHEXIDINE 0.12% (ORAL KIT) 15 ML CUP MT ×2 (09:11→19:53)
[2017-03-24] MEDS: prednisoLONE ACETATE 1% OPHT SUSP 5 ML BTL LEFT EYE ×4 (09:14→19:51)
[2017-03-24] MEDS: ARTIFICIAL TEARS OPTH SOLN 15 ML BTL EACH EYE ×3 (09:14→18:33)
[2017-03-24] MEDS: MIDAZOLAM HCL 2 MG/2 ML VIAL IV PUSH (09:45)
[2017-03-24] MEDS: SODIUM PHOSPHATE INJ 30 MMOL in SODIUM CHLOR 0.9% 250 ML INJ 250 ML IV (10:29)
[2017-03-24] MEDS: LATANOPROST 0.005% OPHT SOLN 2.5 ML BTL EACH EYE (19:51)
[2017-03-24] MEDS: FAT EMULSION 20% INJ 250 ML (@10 mls/hr) IV (19:51)
[2017-03-24] MEDS: INSULIN DETEMIR 100 UNITS/ML VIAL SQ (19:52)
[2017-03-24] MEDS: CLINIMIX E 4.25/5 2000 mL- >42 mls/hr IV (19:52)
[2017-03-24] MEDS: METHYLNALTREXONE BROMIDE 12 MG/0.6 ML VIAL SQ (22:30)
[2017-03-25 00:42] LABS: PHOSPHORUS 4.1 MG/DL (2.5-4.9)
[2017-03-25] MEDS: fentaNYL DRIP 250 ML IV ×3 (01:34→23:53)
[2017-03-25] MEDS: MICAFUNGIN INJ 150 MG in SODIUM CHLORIDE 0.9% INJ 100 ML IV (01:34)
[2017-03-25] MEDS: RESP: ALBUTEROL 2.5 MG/IPRATROPIUM 0.5 MG NEB (SCH) NEB ×4 (04:03→21:45)
[2017-03-25] MEDS: OFLOXACIN 0.3% OPTH SOLN 5 ML BTL LEFT EYE ×3 (04:49→17:50)
[2017-03-25] MEDS: HEPARIN SODIUM - SQ 10,000 UNITS/ML VIAL SQ ×2 (04:51→17:48)
[2017-03-25] MEDS: SODIUM PHOSPHATE INJ 15 MMOL in SODIUM CHLORIDE 0.9% INJ 150 ML IV (04:53)
[2017-03-25] MEDS: INSULIN ASPART SUPPLEMENTAL SCALE SQ ×5 (05:36→23:35)
[2017-03-25] MEDS: DEXTROSE 50% IN WATER 50 ML VIAL(D50) IV PUSH ×2 (05:44→06:14)
[2017-03-25] MEDS ORDERED: GLYCERIN ADULT 2 GM SUPP RECTAL (09:00)
[2017-03-25] MEDS: CHLORHEXIDINE 0.12% (ORAL KIT) 15 ML CUP MT ×2 (10:00→20:50)
[2017-03-25] MEDS: ARTIFICIAL TEARS OPTH SOLN 15 ML BTL EACH EYE ×3 (10:01→17:50)
[2017-03-25] MEDS: THIAMINE INJ 100 MG in SODIUM CHLORIDE 0.9% INJ 100 ML IV (10:01)
[2017-03-25] MEDS: SODIUM CHLORIDE 0.9% FLUSH 10 ML FLUSH IV FLUSH ×4 (10:02→20:50)
[2017-03-25] MEDS: PANTOPRAZOLE SODIUM 40 MG VIAL IV PUSH (10:03)
[2017-03-25] MEDS: prednisoLONE ACETATE 1% OPHT SUSP 5 ML BTL LEFT EYE ×4 (10:04→20:50)
[2017-03-25] MEDS: GLYCERIN ADULT 2 GM SUPP RECTAL (10:04)
[2017-03-25] MEDS: LATANOPROST 0.005% OPHT SOLN 2.5 ML BTL EACH EYE (20:51)
[2017-03-25] MEDS: FAT EMULSION 20% INJ 250 ML (@10 mls/hr) IV (20:57)
[2017-03-25] MEDS: FUROSEMIDE 20 MG/2 ML VIAL IV PUSH (20:57)
[2017-03-25] MEDS: INSULIN DETEMIR 100 UNITS/ML VIAL SQ (20:58)
[2017-03-25 22:57] LABS: AUTOMATED NEUTROPHIL # 11.3 TH/MM3 (1.8-7.7); BASOPHIL # 0.2 TH/MM3 (0-0.2); BASOPHIL % 1.4 % (0.0-2.0); EOSINOPHIL % 0.2 % (0.0-4.0); HEMATOCRIT 22.7 % (39.0-51.0); HEMO FLAGS DIFF FINAL; HEMOGLOBIN 7.5 GM/DL (13.0-17.0); LYMPHOCYTE # 0.9 TH/MM3 (1.0-4.8); MEAN CELL VOLUME 93.3 FL (80.0-100.0); MEAN CORPUSCULAR HEMOGLOBIN 30.8 PG (27.0-34.0); MONO % 3.2 % (0.0-8.0); MONOCYTE # 0.4 TH/MM3 (0-0.9); NEUT % 88.2 % (16.0-70.0); PLATELET COUNT 418 TH/MM3 (150-450); RED BLOOD COUNT 2.43 MIL/MM3 (4.50-5.90); RED CELL DISTRIBUTION WIDTH 14.4 % (11.6-17.2); WHITE BLOOD COUNT 12.8 TH/MM3 (4.0-11.0)
[2017-03-25 23:07] LABS: ALBUMIN 0.9 GM/DL (3.4-5.0); ANION GAP 8 MEQ/L (5-15); AST (GOT) 20 U/L (15-37); BICARBONATE 25.8 MEQ/L (21.0-32.0); BLOOD UREA NITROGEN 13 MG/DL (7-18); CALCIUM 7.7 MG/DL (8.5-10.1); CHLORIDE 97 MEQ/L (98-107); CREATININE 0.43 MG/DL (0.60-1.30); GLOMERULAR FILTRATION RATE 233 ML/MIN (>89); GLUCOSE,RANDOM 135 MG/DL (74-106); MAGNESIUM 1.5 MG/DL (1.5-2.5); POTASSIUM 4.1 MEQ/L (3.5-5.1); SODIUM (NA) 131 MEQ/L (136-145)
[2017-03-25 23:08] LABS: ALT (GPT) 13 U/L (12-78); PHOSPHORUS 3.2 MG/DL (2.5-4.9)
[2017-03-25 23:10] LABS: ALKALINE PHOSPHATASE 108 U/L (45-117); TOTAL BILIRUBIN ADULT 0.4 MG/DL (0.2-1.0); TOTAL PROTEIN 5.8 GM/DL (6.4-8.2)
[2017-03-26] MEDS: MICAFUNGIN INJ 150 MG in SODIUM CHLORIDE 0.9% INJ 100 ML IV (00:43)
[2017-03-26] MEDS: CHLORHEXIDINE GLUCONATE 2 % 1 PACK (2 CLOTHS) TOP (03:00)
[2017-03-26] MEDS: RESP: ALBUTEROL 2.5 MG/IPRATROPIUM 0.5 MG NEB (SCH) NEB ×3 (03:55→15:08)
[2017-03-26] MEDS: CLINIMIX E 5/25 2000 mL- >42 mls/hr IV-CENTRAL ×2 (04:21→21:01)
[2017-03-26] MEDS: OFLOXACIN 0.3% OPTH SOLN 5 ML BTL LEFT EYE ×4 (06:00→17:32)
[2017-03-26] MEDS: INSULIN ASPART SUPPLEMENTAL SCALE SQ ×4 (06:00→20:30)
[2017-03-26] MEDS: HEPARIN SODIUM - SQ 10,000 UNITS/ML VIAL SQ ×2 (06:01→17:32)
[2017-03-26] MEDS: prednisoLONE ACETATE 1% OPHT SUSP 5 ML BTL LEFT EYE ×4 (08:19→19:36)
[2017-03-26] MEDS: ARTIFICIAL TEARS OPTH SOLN 15 ML BTL EACH EYE ×3 (08:20→17:32)
[2017-03-26] MEDS: SODIUM CHLORIDE 0.9% FLUSH 10 ML FLUSH IV FLUSH ×4 (08:20→19:35)
[2017-03-26] MEDS: GLYCERIN ADULT 2 GM SUPP RECTAL (08:21)
[2017-03-26] MEDS: PANTOPRAZOLE SODIUM 40 MG VIAL IV PUSH (08:21)
[2017-03-26] MEDS: THIAMINE INJ 100 MG in SODIUM CHLORIDE 0.9% INJ 100 ML IV (08:22)
[2017-03-26] MEDS: CHLORHEXIDINE 0.12% (ORAL KIT) 15 ML CUP MT ×2 (08:22→19:35)
[2017-03-26] MEDS: fentaNYL DRIP 250 ML IV (13:05)
[2017-03-26 13:24] LABS: AUTOMATED NEUTROPHIL # 7.9 TH/MM3 (1.8-7.7); BASOPHIL % 0.5 % (0.0-2.0); EOSINOPHIL % 0.5 % (0.0-4.0); HEMATOCRIT 21.5 % (39.0-51.0); HEMO FLAGS DIFF FINAL; HEMOGLOBIN 7.3 GM/DL (13.0-17.0); LYMPH % 12.6 % (9.0-44.0); LYMPHOCYTE # 1.2 TH/MM3 (1.0-4.8); MEAN CELL VOLUME 93.7 FL (80.0-100.0); MEAN CORPUSCULAR HGB CONC 34.2 % (32.0-36.0); MEAN PLATELET VOLUME 8.3 FL (7.0-11.0); MONO % 5.5 % (0.0-8.0); MONOCYTE # 0.5 TH/MM3 (0-0.9); NEUT % 80.9 % (16.0-70.0); PLATELET COUNT 470 TH/MM3 (150-450); RED BLOOD COUNT 2.29 MIL/MM3 (4.50-5.90); RED CELL DISTRIBUTION WIDTH 14.5 % (11.6-17.2); WHITE BLOOD COUNT 9.8 TH/MM3 (4.0-11.0)
[2017-03-26 13:46] LABS: ANION GAP 7 MEQ/L (5-15); BICARBONATE 28.2 MEQ/L (21.0-32.0); BLOOD UREA NITROGEN 14 MG/DL (7-18); CALCIUM 7.7 MG/DL (8.5-10.1); CHLORIDE 96 MEQ/L (98-107); CREATININE 0.49 MG/DL (0.60-1.30); GLOMERULAR FILTRATION RATE 200 ML/MIN (>89); GLUCOSE,RANDOM 341 MG/DL (74-106); SODIUM (NA) 131 MEQ/L (136-145)
[2017-03-26] MEDS: INSULIN DETEMIR 100 UNITS/ML VIAL SQ (19:35)
[2017-03-26] MEDS: LATANOPROST 0.005% OPHT SOLN 2.5 ML BTL EACH EYE (19:36)
[2017-03-26] MEDS ORDERED: GLUCAGON 1 MG/ML VIAL OTHER (20:30)
[2017-03-26] MEDS: FAT EMULSION 20% INJ 250 ML (@10 mls/hr) IV (21:01)
[2017-03-26] MEDS: BISACODYL 10 MG SUPP RECTAL (21:11)
[2017-03-27] MEDS: MICAFUNGIN INJ 150 MG in SODIUM CHLORIDE 0.9% INJ 100 ML IV (00:05)
[2017-03-27] MEDS: OFLOXACIN 0.3% OPTH SOLN 5 ML BTL LEFT EYE ×5 (00:05→23:27)
[2017-03-27] MEDS: INSULIN ASPART SUPPLEMENTAL SCALE SQ ×4 (02:30→23:28)
[2017-03-27 03:55] LABS: AUTOMATED NEUTROPHIL # 8.5 TH/MM3 (1.8-7.7); BASOPHIL # 0.1 TH/MM3 (0-0.2); BASOPHIL % 0.9 % (0.0-2.0); EOSINOPHIL % 0.4 % (0.0-4.0); HEMATOCRIT 21.7 % (39.0-51.0); HEMO FLAGS DIFF FINAL; HEMOGLOBIN 7.6 GM/DL (13.0-17.0); LYMPH % 9.8 % (9.0-44.0); MEAN CELL VOLUME 94.2 FL (80.0-100.0); MEAN CORPUSCULAR HEMOGLOBIN 32.9 PG (27.0-34.0); MEAN CORPUSCULAR HGB CONC 34.9 % (32.0-36.0); MEAN PLATELET VOLUME 8.8 FL (7.0-11.0); MONO % 4.9 % (0.0-8.0); MONOCYTE # 0.5 TH/MM3 (0-0.9); PLATELET COUNT 555 TH/MM3 (150-450); RED CELL DISTRIBUTION WIDTH 14.2 % (11.6-17.2); WHITE BLOOD COUNT 10.1 TH/MM3 (4.0-11.0)
[2017-03-27] MEDS: CHLORHEXIDINE GLUCONATE 2 % 1 PACK (2 CLOTHS) TOP (04:00)
[2017-03-27 04:18] LABS: ALBUMIN 0.9 GM/DL (3.4-5.0); ANION GAP 6 MEQ/L (5-15); BICARBONATE 27.9 MEQ/L (21.0-32.0); BLOOD UREA NITROGEN 14 MG/DL (7-18); CALCIUM 8.1 MG/DL (8.5-10.1); CHLORIDE 97 MEQ/L (98-107); CREATININE 0.34 MG/DL (0.60-1.30); GLOMERULAR FILTRATION RATE 305 ML/MIN (>89); GLUCOSE,RANDOM 113 MG/DL (74-106); POTASSIUM 3.9 MEQ/L (3.5-5.1); SODIUM (NA) 131 MEQ/L (136-145)
[2017-03-27 04:19] LABS: ALT (GPT) 12 U/L (12-78); AST (GOT) 21 U/L (15-37)
[2017-03-27 04:21] LABS: ALKALINE PHOSPHATASE 100 U/L (45-117); TOTAL BILIRUBIN ADULT 0.4 MG/DL (0.2-1.0); TOTAL PROTEIN 5.9 GM/DL (6.4-8.2)
[2017-03-27] MEDS: HEPARIN SODIUM - SQ 10,000 UNITS/ML VIAL SQ ×2 (06:03→18:12)
[2017-03-27] MEDS: SODIUM CHLORIDE 0.9% FLUSH 10 ML FLUSH IV FLUSH ×4 (09:13→19:55)
[2017-03-27] MEDS: fentaNYL DRIP 250 ML IV (09:13)
[2017-03-27] MEDS: THIAMINE INJ 100 MG in SODIUM CHLORIDE 0.9% INJ 100 ML IV (11:05)
[2017-03-27] MEDS: LATANOPROST 0.005% OPHT SOLN 2.5 ML BTL EACH EYE (11:06)
[2017-03-27] MEDS: ARTIFICIAL TEARS OPTH SOLN 15 ML BTL EACH EYE ×3 (11:06→18:10)
[2017-03-27] MEDS: prednisoLONE ACETATE 1% OPHT SUSP 5 ML BTL LEFT EYE ×4 (11:06→19:56)
[2017-03-27] MEDS: GLYCERIN ADULT 2 GM SUPP RECTAL (11:07)
[2017-03-27] MEDS: PANTOPRAZOLE SODIUM 40 MG VIAL IV PUSH (11:07)
[2017-03-27] MEDS ORDERED: METOPROLOL TARTRATE 5 MG/5 ML VIAL IV PUSH (12:30)
[2017-03-27] MEDS: CHLORHEXIDINE 0.12% (ORAL KIT) 15 ML CUP MT ×2 (12:59→19:55)
[2017-03-27] MEDS: fentaNYL 75 MCG/HR PATCH T-DERMAL (13:01)
[2017-03-27] MEDS: METOPROLOL TARTRATE 5 MG/5 ML VIAL IV PUSH ×3 (13:26→20:30)
[2017-03-27] MEDS: cloNIDine HCL 0.3 MG/24 HR PATCH T-DERMAL (18:10)
[2017-03-27] MEDS: HALOPERIDOL LACTATE 5 MG/ML AMP IV PUSH ×2 (18:14→21:12)
[2017-03-27] MEDS: CLINIMIX E 5/25 2000 mL- >42 mls/hr IV-CENTRAL (19:55)
[2017-03-27] MEDS: FAT EMULSION 20% INJ 250 ML (@10 mls/hr) IV (19:55)
[2017-03-27] MEDS: BISACODYL 10 MG SUPP RECTAL (19:57)
[2017-03-27] MEDS: INSULIN DETEMIR 100 UNITS/ML VIAL SQ (20:09)
[2017-03-27] MEDS: HYDROmorphone HCL PF 4 MG/ML VIAL IV PUSH (23:17)
[2017-03-28] MEDS: METOPROLOL TARTRATE 5 MG/5 ML VIAL IV PUSH ×6 (00:28→19:52)
[2017-03-28] MEDS: MICAFUNGIN INJ 150 MG in SODIUM CHLORIDE 0.9% INJ 100 ML IV ×2 (00:29→23:16)
[2017-03-28] MEDS: HALOPERIDOL LACTATE 5 MG/ML AMP IV PUSH ×3 (01:45→21:43)
[2017-03-28] MEDS: CHLORHEXIDINE GLUCONATE 2 % 1 PACK (2 CLOTHS) TOP ×2 (04:00→19:28)
[2017-03-28] MEDS: HEPARIN SODIUM - SQ 10,000 UNITS/ML VIAL SQ ×2 (05:15→17:24)
[2017-03-28] MEDS: HYDROmorphone HCL PF 4 MG/ML VIAL IV PUSH ×3 (05:16→19:52)
[2017-03-28] MEDS: OFLOXACIN 0.3% OPTH SOLN 5 ML BTL LEFT EYE ×4 (05:17→23:16)
[2017-03-28] MEDS: INSULIN ASPART SUPPLEMENTAL SCALE SQ ×4 (06:28→23:10)
[2017-03-28] MEDS: CHLORHEXIDINE 0.12% (ORAL KIT) 15 ML CUP MT ×2 (08:24→19:51)
[2017-03-28] MEDS: PANTOPRAZOLE SODIUM 40 MG VIAL IV PUSH (08:25)
[2017-03-28] MEDS: GLYCERIN ADULT 2 GM SUPP RECTAL (08:26)
[2017-03-28] MEDS: THIAMINE INJ 100 MG in SODIUM CHLORIDE 0.9% INJ 100 ML IV (08:27)
[2017-03-28] MEDS: SODIUM CHLORIDE 0.9% FLUSH 10 ML FLUSH IV FLUSH ×4 (08:27→19:52)
[2017-03-28] MEDS: ARTIFICIAL TEARS OPTH SOLN 15 ML BTL EACH EYE ×3 (08:30→17:24)
[2017-03-28] MEDS: prednisoLONE ACETATE 1% OPHT SUSP 5 ML BTL LEFT EYE ×4 (09:00→20:18)
[2017-03-28] MEDS: CLINIMIX E 5/25 2000 mL- >42 mls/hr IV-CENTRAL (19:51)
[2017-03-28] MEDS: FAT EMULSION 20% INJ 250 ML (@10 mls/hr) IV (19:51)
[2017-03-28] MEDS: BISACODYL 10 MG SUPP RECTAL (19:52)
[2017-03-28] MEDS: INSULIN DETEMIR 100 UNITS/ML VIAL SQ (19:52)
[2017-03-28] MEDS: LATANOPROST 0.005% OPHT SOLN 2.5 ML BTL EACH EYE (20:19)
[2017-03-29] MEDS: HYDROmorphone HCL PF 4 MG/ML VIAL IV PUSH ×3 (00:08→15:42)
[2017-03-29] MEDS: METOPROLOL TARTRATE 5 MG/5 ML VIAL IV PUSH ×7 (00:08→23:12)
[2017-03-29] MEDS: HEPARIN SODIUM - SQ 10,000 UNITS/ML VIAL SQ ×2 (04:57→18:00)
[2017-03-29] MEDS: OFLOXACIN 0.3% OPTH SOLN 5 ML BTL LEFT EYE ×4 (04:57→22:30)
[2017-03-29] MEDS: INSULIN ASPART SUPPLEMENTAL SCALE SQ ×5 (04:57→22:30)
[2017-03-29] MEDS: CHLORHEXIDINE 0.12% (ORAL KIT) 15 ML CUP MT ×2 (08:00→19:50)
[2017-03-29] MEDS: GLYCERIN ADULT 2 GM SUPP RECTAL (08:54)
[2017-03-29] MEDS: PANTOPRAZOLE SODIUM 40 MG VIAL IV PUSH (08:55)
[2017-03-29] MEDS: SODIUM CHLORIDE 0.9% FLUSH 10 ML FLUSH IV FLUSH ×3 (08:56→20:17)
[2017-03-29] MEDS: ARTIFICIAL TEARS OPTH SOLN 15 ML BTL EACH EYE ×4 (08:56→17:59)
[2017-03-29] MEDS: THIAMINE INJ 100 MG in SODIUM CHLORIDE 0.9% INJ 100 ML IV (08:59)
[2017-03-29] MEDS: prednisoLONE ACETATE 1% OPHT SUSP 5 ML BTL LEFT EYE ×4 (09:00→20:17)
[2017-03-29 10:48] LABS: AUTOMATED NEUTROPHIL # 12.2 TH/MM3 (1.8-7.7); BASOPHIL % 0.3 % (0.0-2.0); EOSINOPHIL % 0.2 % (0.0-4.0); HEMATOCRIT 21.2 % (39.0-51.0); HEMO FLAGS DIFF FINAL; HEMOGLOBIN 7.1 GM/DL (13.0-17.0); LYMPH % 6.8 % (9.0-44.0); LYMPHOCYTE # 0.9 TH/MM3 (1.0-4.8); MEAN CELL VOLUME 94.9 FL (80.0-100.0); MEAN CORPUSCULAR HEMOGLOBIN 31.9 PG (27.0-34.0); MEAN CORPUSCULAR HGB CONC 33.6 % (32.0-36.0); MEAN PLATELET VOLUME 7.9 FL (7.0-11.0); MONO % 3.4 % (0.0-8.0); MONOCYTE # 0.5 TH/MM3 (0-0.9); NEUT % 89.3 % (16.0-70.0); PLATELET COUNT 563 TH/MM3 (150-450); RED BLOOD COUNT 2.23 MIL/MM3 (4.50-5.90); RED CELL DISTRIBUTION WIDTH 14.1 % (11.6-17.2); WHITE BLOOD COUNT 13.6 TH/MM3 (4.0-11.0)
[2017-03-29 11:06] LABS: ANION GAP 7 MEQ/L (5-15); BICARBONATE 26.6 MEQ/L (21.0-32.0); BLOOD UREA NITROGEN 17 MG/DL (7-18); CALCIUM 7.7 MG/DL (8.5-10.1); CHLORIDE 100 MEQ/L (98-107); CREATININE 0.47 MG/DL (0.60-1.30); GLOMERULAR FILTRATION RATE 210 ML/MIN (>89); GLUCOSE,RANDOM 324 MG/DL (74-106); POTASSIUM 4.2 MEQ/L (3.5-5.1); SODIUM (NA) 134 MEQ/L (136-145)
[2017-03-29] MEDS: FAT EMULSION 20% INJ 250 ML (@10 mls/hr) IV (15:43)
[2017-03-29] MEDS: BISACODYL 10 MG SUPP RECTAL (20:16)
[2017-03-29] MEDS: CLINIMIX E 5/25 2000 mL- >42 mls/hr IV-CENTRAL (20:16)
[2017-03-29] MEDS: INSULIN DETEMIR 100 UNITS/ML VIAL SQ (20:16)
[2017-03-29] MEDS: LATANOPROST 0.005% OPHT SOLN 2.5 ML BTL EACH EYE (20:17)
[2017-03-30] MEDS: CHLORHEXIDINE GLUCONATE 2 % 1 PACK (2 CLOTHS) TOP (00:19)
[2017-03-30] MEDS: HEPARIN SODIUM - SQ 10,000 UNITS/ML VIAL SQ ×2 (03:59→17:10)
[2017-03-30] MEDS: OFLOXACIN 0.3% OPTH SOLN 5 ML BTL LEFT EYE ×3 (03:59→17:11)
[2017-03-30] MEDS: METOPROLOL TARTRATE 5 MG/5 ML VIAL IV PUSH ×5 (04:00→20:30)
[2017-03-30] MEDS: INSULIN ASPART SUPPLEMENTAL SCALE SQ ×3 (05:07→17:10)
[2017-03-30] MEDS: PANTOPRAZOLE SODIUM 40 MG VIAL IV PUSH (10:42)
[2017-03-30] MEDS: GLYCERIN ADULT 2 GM SUPP RECTAL (10:42)
[2017-03-30] MEDS: THIAMINE INJ 100 MG in SODIUM CHLORIDE 0.9% INJ 100 ML IV (10:42)
[2017-03-30] MEDS: SODIUM CHLORIDE 0.9% FLUSH 10 ML FLUSH IV FLUSH ×6 (10:43→20:41)
[2017-03-30] MEDS: CHLORHEXIDINE 0.12% (ORAL KIT) 15 ML CUP MT ×2 (10:43→20:00)
[2017-03-30] MEDS: prednisoLONE ACETATE 1% OPHT SUSP 5 ML BTL LEFT EYE ×2 (10:46→12:31)
[2017-03-30] MEDS: REMOVE OLD DURAGESIC (FENTANYL) PATCH T-DERMAL (12:29)
[2017-03-30] MEDS: ARTIFICIAL TEARS OPTH SOLN 15 ML BTL EACH EYE ×2 (12:31→17:11)
[2017-03-30] MEDS: FAT EMULSION 20% INJ 250 ML (@10 mls/hr) IV (20:40)
[2017-03-30] MEDS: MULTIVITAMIN INJ 5 ML, FOLIC ACID INJ 0.5 MG in AMINO ACID IN D5W W/ELECTROLYT 1,000 ML IV-CENTRAL (20:40)
[2017-03-30] MEDS: BISACODYL 10 MG SUPP RECTAL (20:41)
[2017-03-30] MEDS: HALOPERIDOL LACTATE 5 MG/ML AMP IV PUSH (20:42)
[2017-03-30] MEDS: LATANOPROST 0.005% OPHT SOLN 2.5 ML BTL EACH EYE (20:42)
[2017-03-30] MEDS: INSULIN DETEMIR 100 UNITS/ML VIAL SQ (20:43)
[2017-03-31] MEDS: DEXTROSE 50% IN WATER 50 ML VIAL(D50) IV PUSH (00:05)
[2017-03-31] MEDS: METOPROLOL TARTRATE 5 MG/5 ML VIAL IV PUSH ×6 (00:06→21:10)
[2017-03-31 03:20] LABS: HEMATOCRIT 21.8 % (39.0-51.0); HEMOGLOBIN 7.5 GM/DL (13.0-17.0); MEAN CELL VOLUME 94.6 FL (80.0-100.0); MEAN CORPUSCULAR HEMOGLOBIN 32.5 PG (27.0-34.0); MEAN CORPUSCULAR HGB CONC 34.3 % (32.0-36.0); MEAN PLATELET VOLUME 8.3 FL (7.0-11.0); PLATELET COUNT 541 TH/MM3 (150-450); REVIEW FLAG FINAL; WHITE BLOOD COUNT 9.9 TH/MM3 (4.0-11.0)
[2017-03-31 03:44] LABS: ANION GAP 8 MEQ/L (5-15); BICARBONATE 27.4 MEQ/L (21.0-32.0); BLOOD UREA NITROGEN 16 MG/DL (7-18); CALCIUM 8.1 MG/DL (8.5-10.1); CHLORIDE 101 MEQ/L (98-107); GLOMERULAR FILTRATION RATE 352 ML/MIN (>89); GLUCOSE,RANDOM 150 MG/DL (74-106); POTASSIUM 3.9 MEQ/L (3.5-5.1); SODIUM (NA) 136 MEQ/L (136-145)
[2017-03-31] MEDS: CHLORHEXIDINE GLUCONATE 2 % 1 PACK (2 CLOTHS) TOP (03:58)
[2017-03-31] MEDS: OFLOXACIN 0.3% OPTH SOLN 5 ML BTL LEFT EYE ×4 (04:44→17:46)
[2017-03-31] MEDS: HEPARIN SODIUM - SQ 10,000 UNITS/ML VIAL SQ ×2 (04:45→17:45)
[2017-03-31] MEDS: INSULIN ASPART SUPPLEMENTAL SCALE SQ ×4 (04:45→17:45)
[2017-03-31] MEDS: GLYCERIN ADULT 2 GM SUPP RECTAL (09:19)
[2017-03-31] MEDS: PANTOPRAZOLE SODIUM 40 MG VIAL IV PUSH (09:19)
[2017-03-31] MEDS: SODIUM CHLORIDE 0.9% FLUSH 10 ML FLUSH IV FLUSH ×4 (09:19→21:11)
[2017-03-31] MEDS: ARTIFICIAL TEARS OPTH SOLN 15 ML BTL EACH EYE ×3 (09:23→17:46)
[2017-03-31] MEDS: THIAMINE INJ 100 MG in SODIUM CHLORIDE 0.9% INJ 100 ML IV (09:49)
[2017-03-31] MEDS: CHLORHEXIDINE 0.12% (ORAL KIT) 15 ML CUP MT ×2 (09:50→20:00)
[2017-03-31] MEDS: MULTIVITAMIN INJ 5 ML, FOLIC ACID INJ 0.5 MG in AMINO ACID IN D5W W/ELECTROLYT 1,000 ML IV-CENTRAL (12:41)
[2017-03-31] MEDS: MORPHINE SULFATE 2 MG/ML INJ IV (15:54)
[2017-03-31] MEDS: BISACODYL 10 MG SUPP RECTAL (21:00)
[2017-03-31] MEDS: FAT EMULSION 20% INJ 250 ML (@10 mls/hr) IV (21:08)
[2017-03-31] MEDS: INSULIN DETEMIR 100 UNITS/ML VIAL SQ (21:11)
[2017-03-31] MEDS: LATANOPROST 0.005% OPHT SOLN 2.5 ML BTL EACH EYE (21:12)
[2017-04-01] MEDS: METOPROLOL TARTRATE 5 MG/5 ML VIAL IV PUSH ×6 (00:46→21:34)
[2017-04-01] MEDS: INSULIN ASPART SUPPLEMENTAL SCALE SQ ×4 (00:46→17:00)
[2017-04-01] MEDS: MULTIVITAMIN INJ 5 ML, FOLIC ACID INJ 0.5 MG in AMINO ACID IN D5W W/ELECTROLYT 1,000 ML IV-CENTRAL ×2 (03:12→20:19)
[2017-04-01] MEDS: CHLORHEXIDINE GLUCONATE 2 % 1 PACK (2 CLOTHS) TOP (04:00)
[2017-04-01] MEDS: HEPARIN SODIUM - SQ 10,000 UNITS/ML VIAL SQ ×2 (05:49→17:02)
[2017-04-01] MEDS: THIAMINE INJ 100 MG in SODIUM CHLORIDE 0.9% INJ 100 ML IV (07:51)
[2017-04-01] MEDS: SODIUM CHLORIDE 0.9% FLUSH 10 ML FLUSH IV FLUSH ×4 (07:52→21:34)
[2017-04-01] MEDS: CHLORHEXIDINE 0.12% (ORAL KIT) 15 ML CUP MT ×2 (07:52→20:00)
[2017-04-01] MEDS: PANTOPRAZOLE SODIUM 40 MG VIAL IV PUSH (07:53)
[2017-04-01] MEDS: GLYCERIN ADULT 2 GM SUPP RECTAL (07:53)
[2017-04-01] MEDS: ARTIFICIAL TEARS OPTH SOLN 15 ML BTL EACH EYE ×3 (07:55→16:59)
[2017-04-01] MEDS: FAT EMULSION 20% INJ 250 ML (@10 mls/hr) IV (20:20)
[2017-04-01] MEDS: BISACODYL 10 MG SUPP RECTAL (21:00)
[2017-04-01] MEDS: LATANOPROST 0.005% OPHT SOLN 2.5 ML BTL EACH EYE (21:35)
[2017-04-01] MEDS: INSULIN DETEMIR 100 UNITS/ML VIAL SQ (22:51)
[2017-04-02] MEDS: METOPROLOL TARTRATE 5 MG/5 ML VIAL IV PUSH ×6 (00:41→20:23)
[2017-04-02] MEDS: INSULIN ASPART SUPPLEMENTAL SCALE SQ ×4 (00:54→17:09)
[2017-04-02] MEDS: LABETALOL HCL 100 MG/20 ML VIAL IV PUSH (02:12)
[2017-04-02] MEDS: CHLORHEXIDINE GLUCONATE 2 % 1 PACK (2 CLOTHS) TOP (04:00)
[2017-04-02] MEDS: HEPARIN SODIUM - SQ 10,000 UNITS/ML VIAL SQ ×2 (05:34→17:09)
[2017-04-02 06:47] LABS: ALT (GPT) 13 U/L (12-78); ANION GAP 9 MEQ/L (5-15); AST (GOT) 20 U/L (15-37); AUTOMATED NEUTROPHIL # 5.5 TH/MM3 (1.8-7.7); BASOPHIL # 0.1 TH/MM3 (0-0.2); BICARBONATE 24.4 MEQ/L (21.0-32.0); BLOOD UREA NITROGEN 17 MG/DL (7-18); CALCIUM 7.6 MG/DL (8.5-10.1); CHLORIDE 102 MEQ/L (98-107); CREATININE 0.36 MG/DL (0.60-1.30); EOSINOPHIL # 0.4 TH/MM3 (0-0.4); EOSINOPHIL % 4.7 % (0.0-4.0); GLOMERULAR FILTRATION RATE 286 ML/MIN (>89); GLUCOSE,RANDOM 90 MG/DL (74-106); HEMATOCRIT 23.4 % (39.0-51.0); HEMO FLAGS DIFF FINAL; HEMOGLOBIN 7.7 GM/DL (13.0-17.0); LYMPH % 15.6 % (9.0-44.0); LYMPHOCYTE # 1.3 TH/MM3 (1.0-4.8); MAGNESIUM 1.5 MG/DL (1.5-2.5); MEAN CELL VOLUME 94.7 FL (80.0-100.0); MEAN CORPUSCULAR HEMOGLOBIN 31.2 PG (27.0-34.0); MEAN CORPUSCULAR HGB CONC 32.9 % (32.0-36.0); MONOCYTE # 0.8 TH/MM3 (0-0.9); NEUT % 68.7 % (16.0-70.0); PLATELET COUNT 499 TH/MM3 (150-450); POTASSIUM 3.8 MEQ/L (3.5-5.1); RED BLOOD COUNT 2.47 MIL/MM3 (4.50-5.90); RED CELL DISTRIBUTION WIDTH 14.6 % (11.6-17.2); SODIUM (NA) 135 MEQ/L (136-145)
[2017-04-02 06:50] LABS: ALKALINE PHOSPHATASE 99 U/L (45-117); TOTAL BILIRUBIN ADULT 0.3 MG/DL (0.2-1.0); TOTAL PROTEIN 5.8 GM/DL (6.4-8.2)
[2017-04-02] MEDS: PANTOPRAZOLE SODIUM 40 MG VIAL IV PUSH (08:54)
[2017-04-02] MEDS: THIAMINE INJ 100 MG in SODIUM CHLORIDE 0.9% INJ 100 ML IV (08:55)
[2017-04-02] MEDS: CHLORHEXIDINE 0.12% (ORAL KIT) 15 ML CUP MT ×2 (08:58→20:11)
[2017-04-02] MEDS: ARTIFICIAL TEARS OPTH SOLN 15 ML BTL EACH EYE ×3 (08:59→17:10)
[2017-04-02] MEDS: SODIUM CHLORIDE 0.9% FLUSH 10 ML FLUSH IV FLUSH ×4 (08:59→20:13)
[2017-04-02] MEDS: GLYCERIN ADULT 2 GM SUPP RECTAL (08:59)
[2017-04-02] MEDS: REMOVE OLD DURAGESIC (FENTANYL) PATCH T-DERMAL (11:21)
[2017-04-02] MEDS: MULTIVITAMIN INJ 5 ML, FOLIC ACID INJ 0.5 MG in AMINO ACID IN D5W W/ELECTROLYT 1,000 ML IV-CENTRAL (11:22)
[2017-04-02] MEDS: FAT EMULSION 20% INJ 250 ML (@10 mls/hr) IV (20:05)
[2017-04-02] MEDS: CLINIMIX 5/25 (Custom) 2000 mL- >42 mls/hr IV-CENTRAL (20:07)
[2017-04-02] MEDS: LATANOPROST 0.005% OPHT SOLN 2.5 ML BTL EACH EYE (20:13)
[2017-04-02] MEDS: BISACODYL 10 MG SUPP RECTAL (20:13)
[2017-04-02] MEDS: INSULIN DETEMIR 100 UNITS/ML VIAL SQ (20:14)
[2017-04-03] MEDS: METOPROLOL TARTRATE 5 MG/5 ML VIAL IV PUSH ×6 (00:12→20:30)
[2017-04-03] MEDS: INSULIN ASPART SUPPLEMENTAL SCALE SQ ×2 (00:15→05:23)
[2017-04-03] MEDS: CHLORHEXIDINE GLUCONATE 2 % 1 PACK (2 CLOTHS) TOP (04:00)
[2017-04-03] MEDS: HEPARIN SODIUM - SQ 10,000 UNITS/ML VIAL SQ ×2 (05:21→17:31)
[2017-04-03] MEDS: CHLORHEXIDINE 0.12% (ORAL KIT) 15 ML CUP MT ×2 (08:00→20:00)
[2017-04-03] MEDS ORDERED: GLUCAGON 1 MG/ML VIAL OTHER (08:15)
[2017-04-03] MEDS ORDERED: DEXTROSE 50% IN WATER 50 ML VIAL(D50) IV PUSH (08:15)
[2017-04-03] MEDS: PANTOPRAZOLE SODIUM 40 MG VIAL IV PUSH (08:53)
[2017-04-03] MEDS: SODIUM CHLORIDE 0.9% FLUSH 10 ML FLUSH IV FLUSH ×4 (08:54→21:08)
[2017-04-03] MEDS: THIAMINE INJ 100 MG in SODIUM CHLORIDE 0.9% INJ 100 ML IV (08:54)
[2017-04-03] MEDS: GLYCERIN ADULT 2 GM SUPP RECTAL (08:54)
[2017-04-03] MEDS: INSULIN NovoLIN REGULAR SUPPLEMENTAL SCALE SQ ×4 (08:54→21:08)
[2017-04-03] MEDS: ARTIFICIAL TEARS OPTH SOLN 15 ML BTL EACH EYE ×3 (08:55→17:31)
[2017-04-03 11:00] LABS: AUTOMATED NEUTROPHIL # 7.1 TH/MM3 (1.8-7.7); BASOPHIL # 0.1 TH/MM3 (0-0.2); EOSINOPHIL # 0.4 TH/MM3 (0-0.4); EOSINOPHIL % 4.1 % (0.0-4.0); HEMATOCRIT 24.1 % (39.0-51.0); HEMO FLAGS DIFF FINAL; HEMOGLOBIN 8.2 GM/DL (13.0-17.0); LYMPH % 14.7 % (9.0-44.0); LYMPHOCYTE # 1.4 TH/MM3 (1.0-4.8); MEAN CELL VOLUME 96.9 FL (80.0-100.0); MEAN CORPUSCULAR HEMOGLOBIN 32.9 PG (27.0-34.0); MEAN PLATELET VOLUME 9.4 FL (7.0-11.0); MONO % 6.3 % (0.0-8.0); MONOCYTE # 0.6 TH/MM3 (0-0.9); NEUT % 73.9 % (16.0-70.0); PLATELET COUNT 532 TH/MM3 (150-450); RED BLOOD COUNT 2.48 MIL/MM3 (4.50-5.90); RED CELL DISTRIBUTION WIDTH 14.8 % (11.6-17.2); WHITE BLOOD COUNT 9.7 TH/MM3 (4.0-11.0)
[2017-04-03 11:06] LABS: INTERNATIONAL NORMALIZED RATIO 1.2 RATIO; PROTHROMBIN TIME - PATIENT 12.1 SEC (9.8-11.6)
[2017-04-03 11:17] LABS: ANION GAP 9 MEQ/L (5-15); BICARBONATE 24.5 MEQ/L (21.0-32.0); BLOOD UREA NITROGEN 16 MG/DL (7-18); CALCIUM 7.4 MG/DL (8.5-10.1); CHLORIDE 100 MEQ/L (98-107); CREATININE 0.43 MG/DL (0.60-1.30); GLOMERULAR FILTRATION RATE 233 ML/MIN (>89); GLUCOSE,RANDOM 231 MG/DL (74-106); MAGNESIUM 1.5 MG/DL (1.5-2.5); PHOSPHORUS 3.5 MG/DL (2.5-4.9); POTASSIUM 4.3 MEQ/L (3.5-5.1); SODIUM (NA) 133 MEQ/L (136-145)
[2017-04-03 11:34] LABS: CALCIUM-PROTEIN CORRECTED 7.9 MG/DL (8.5-10.1); TOTAL PROTEIN 6.1 GM/DL (6.4-8.2)
[2017-04-03] MEDS: cloNIDine HCL 0.3 MG/24 HR PATCH T-DERMAL (12:04)
[2017-04-03] MEDS: REMOVE OLD CATAPRES (CLONIDINE) PATCH T-DERMAL (12:05)
[2017-04-03] MEDS: MIDAZOLAM HCL 2 MG/2 ML VIAL IV (16:45)
[2017-04-03] MEDS: GLUCAGON 1 MG/ML VIAL IV (16:45)
[2017-04-03] MEDS: IOHEXOL 350 MG/ML 50 ML BTL (for Cath Lab) G-TUBE (16:59)
[2017-04-03] MEDS: BISACODYL 10 MG SUPP RECTAL (21:00)
[2017-04-03] MEDS: INSULIN DETEMIR 100 UNITS/ML VIAL SQ (21:00)
[2017-04-03] MEDS: LATANOPROST 0.005% OPHT SOLN 2.5 ML BTL EACH EYE (21:09)
[2017-04-03] MEDS: CLINIMIX 5/25 (Custom) 2000 mL- >42 mls/hr IV-CENTRAL (21:48)
[2017-04-03] MEDS: FAT EMULSION 20% INJ 250 ML (@10 mls/hr) IV (22:09)
[2017-04-04] MEDS: METOPROLOL TARTRATE 5 MG/5 ML VIAL IV PUSH ×2 (00:34→04:34)
[2017-04-04] MEDS: INSULIN NovoLIN REGULAR SUPPLEMENTAL SCALE SQ ×6 (00:57→21:00)
[2017-04-04] MEDS: CHLORHEXIDINE GLUCONATE 2 % 1 PACK (2 CLOTHS) TOP (04:00)
[2017-04-04 05:08] LABS: AUTOMATED NEUTROPHIL # 11.4 TH/MM3 (1.8-7.7); BASOPHIL # 0.1 TH/MM3 (0-0.2); BASOPHIL % 0.5 % (0.0-2.0); EOSINOPHIL # 0.3 TH/MM3 (0-0.4); EOSINOPHIL % 2.3 % (0.0-4.0); HEMATOCRIT 25.3 % (39.0-51.0); HEMO FLAGS DIFF FINAL; HEMOGLOBIN 8.5 GM/DL (13.0-17.0); LYMPH % 10.5 % (9.0-44.0); LYMPHOCYTE # 1.5 TH/MM3 (1.0-4.8); MEAN CELL VOLUME 94.2 FL (80.0-100.0); MEAN CORPUSCULAR HEMOGLOBIN 31.7 PG (27.0-34.0); MEAN CORPUSCULAR HGB CONC 33.7 % (32.0-36.0); MEAN PLATELET VOLUME 9.5 FL (7.0-11.0); MONO % 6.1 % (0.0-8.0); MONOCYTE # 0.9 TH/MM3 (0-0.9); NEUT % 80.6 % (16.0-70.0); PLATELET COUNT 578 TH/MM3 (150-450); RED BLOOD COUNT 2.69 MIL/MM3 (4.50-5.90); RED CELL DISTRIBUTION WIDTH 14.3 % (11.6-17.2); WHITE BLOOD COUNT 14.1 TH/MM3 (4.0-11.0)
[2017-04-04 05:13] LABS: ANION GAP 10 MEQ/L (5-15); BICARBONATE 22.9 MEQ/L (21.0-32.0); BLOOD UREA NITROGEN 15 MG/DL (7-18); CHLORIDE 97 MEQ/L (98-107); CREATININE 0.41 MG/DL (0.60-1.30); GLOMERULAR FILTRATION RATE 246 ML/MIN (>89); GLUCOSE,RANDOM 142 MG/DL (74-106); SODIUM (NA) 130 MEQ/L (136-145)
[2017-04-04] MEDS: HEPARIN SODIUM - SQ 10,000 UNITS/ML VIAL SQ ×2 (06:16→17:52)
[2017-04-04] MEDS: CHLORHEXIDINE 0.12% (ORAL KIT) 15 ML CUP MT ×2 (08:00→20:00)
[2017-04-04 08:14] LABS: B-TYPE NATRIURETIC PEPTIDE 118 PG/ML (0-100)
[2017-04-04] MEDS: GLYCERIN ADULT 2 GM SUPP RECTAL (08:48)
[2017-04-04] MEDS: DILTIAZEM HCL 60 MG TAB PO ×3 (08:48→21:25)
[2017-04-04] MEDS: SODIUM CHLOR 0.9% 1000 ML INJ 1,000 ML IV (08:49)
[2017-04-04] MEDS: SODIUM CHLORIDE 0.9% FLUSH 10 ML FLUSH IV FLUSH ×5 (08:50→21:24)
[2017-04-04] MEDS: ARTIFICIAL TEARS OPTH SOLN 15 ML BTL EACH EYE ×3 (08:54→17:49)
[2017-04-04] MEDS: THIAMINE INJ 100 MG in SODIUM CHLORIDE 0.9% INJ 100 ML IV (08:54)
[2017-04-04] MEDS: PANTOPRAZOLE SODIUM 40 MG VIAL IV PUSH (08:55)
[2017-04-04] MEDS: FAT EMULSION 20% INJ 250 ML (@10 mls/hr) IV (20:00)
[2017-04-04] MEDS: BISACODYL 10 MG SUPP RECTAL (21:00)
[2017-04-04] MEDS: INSULIN DETEMIR 100 UNITS/ML VIAL SQ (21:00)
[2017-04-04] MEDS: LATANOPROST 0.005% OPHT SOLN 2.5 ML BTL EACH EYE (21:24)
[2017-04-05] MEDS: INSULIN NovoLIN REGULAR SUPPLEMENTAL SCALE SQ ×4 (01:00→17:03)
[2017-04-05] MEDS: DILTIAZEM HCL 60 MG TAB PO ×4 (01:53→21:42)
[2017-04-05] MEDS: CHLORHEXIDINE GLUCONATE 2 % 1 PACK (2 CLOTHS) TOP (02:10)
[2017-04-05 05:38] LABS: AUTOMATED NEUTROPHIL # 16.7 TH/MM3 (1.8-7.7); BASOPHIL # 0.1 TH/MM3 (0-0.2); BASOPHIL % 0.5 % (0.0-2.0); EOSINOPHIL # 0.1 TH/MM3 (0-0.4); EOSINOPHIL % 0.3 % (0.0-4.0); HEMATOCRIT 24.4 % (39.0-51.0); HEMO FLAGS DIFF FINAL; HEMOGLOBIN 8.2 GM/DL (13.0-17.0); LYMPH % 7.2 % (9.0-44.0); LYMPHOCYTE # 1.4 TH/MM3 (1.0-4.8); MEAN CELL VOLUME 94.5 FL (80.0-100.0); MEAN CORPUSCULAR HEMOGLOBIN 31.6 PG (27.0-34.0); MEAN CORPUSCULAR HGB CONC 33.4 % (32.0-36.0); MEAN PLATELET VOLUME 9.7 FL (7.0-11.0); MONO % 4.4 % (0.0-8.0); MONOCYTE # 0.8 TH/MM3 (0-0.9); NEUT % 87.6 % (16.0-70.0); PLATELET COUNT 498 TH/MM3 (150-450); RED BLOOD COUNT 2.58 MIL/MM3 (4.50-5.90); RED CELL DISTRIBUTION WIDTH 14.9 % (11.6-17.2); WHITE BLOOD COUNT 19.1 TH/MM3 (4.0-11.0)
[2017-04-05 05:55] LABS: ANION GAP 11 MEQ/L (5-15); BICARBONATE 22.3 MEQ/L (21.0-32.0); BLOOD UREA NITROGEN 16 MG/DL (7-18); CALCIUM 7.5 MG/DL (8.5-10.1); CHLORIDE 96 MEQ/L (98-107); CREATININE 0.49 MG/DL (0.60-1.30); GLOMERULAR FILTRATION RATE 200 ML/MIN (>89); GLUCOSE,RANDOM 226 MG/DL (74-106); POTASSIUM 4.4 MEQ/L (3.5-5.1); SODIUM (NA) 129 MEQ/L (136-145)
[2017-04-05] MEDS: HEPARIN SODIUM - SQ 10,000 UNITS/ML VIAL SQ ×2 (06:02→17:11)
[2017-04-05] MEDS ORDERED: DEXTROSE 50% IN WATER 50 ML VIAL(D50) IV PUSH (08:00)
[2017-04-05] MEDS ORDERED: GLUCAGON 1 MG/ML VIAL OTHER (08:00)
[2017-04-05] MEDS: CHLORHEXIDINE 0.12% (ORAL KIT) 15 ML CUP MT ×2 (08:00→20:00)
[2017-04-05] MEDS: VANCOMYCIN INJ 1,000 MG in SODIUM CHLOR 0.9% 250 ML INJ 250 ML IV (08:30)
[2017-04-05] MEDS: PANTOPRAZOLE SODIUM 40 MG VIAL IV PUSH (08:49)
[2017-04-05] MEDS: ARTIFICIAL TEARS OPTH SOLN 15 ML BTL EACH EYE ×3 (08:49→17:03)
[2017-04-05] MEDS: GLYCERIN ADULT 2 GM SUPP RECTAL (08:50)
[2017-04-05] MEDS: THIAMINE HCL 100 MG TAB PO (09:00)
[2017-04-05] MEDS: SODIUM CHLORIDE 0.9% FLUSH 10 ML FLUSH IV FLUSH ×4 (09:00→21:43)
[2017-04-05] MEDS: PIPERACIL-TAZO 4.5 GM PREMIX 100 ML IV ×4 (10:00→21:03)
[2017-04-05] MEDS: RESP: ALBUTEROL 2.5 MG/IPRATROPIUM 0.5 MG NEB (SCH) NEB ×4 (11:34→23:26)
[2017-04-05] MEDS: SODIUM CHLOR 0.9% 1000 ML INJ 1,000 ML IV (17:00)
[2017-04-05] MEDS: BISACODYL 10 MG SUPP RECTAL (21:00)
[2017-04-05] MEDS: INSULIN DETEMIR 100 UNITS/ML VIAL SQ (21:43)
[2017-04-05] MEDS: LATANOPROST 0.005% OPHT SOLN 2.5 ML BTL EACH EYE (21:44)
[2017-04-06] MEDS: CHLORHEXIDINE GLUCONATE 2 % 1 PACK (2 CLOTHS) TOP (02:52)
[2017-04-06] MEDS: DILTIAZEM HCL 60 MG TAB PO ×4 (02:52→20:11)
[2017-04-06] MEDS: RESP: ALBUTEROL 2.5 MG/IPRATROPIUM 0.5 MG NEB (SCH) NEB ×5 (04:00→20:13)
[2017-04-06] MEDS: HEPARIN SODIUM - SQ 10,000 UNITS/ML VIAL SQ ×2 (05:38→17:56)
[2017-04-06] MEDS: INSULIN NovoLIN REGULAR SUPPLEMENTAL SCALE SQ ×4 (06:00→20:44)
[2017-04-06 06:57] LABS: AUTOMATED NEUTROPHIL # 11.6 TH/MM3 (1.8-7.7); BASOPHIL # 0.1 TH/MM3 (0-0.2); BASOPHIL % 0.7 % (0.0-2.0); EOSINOPHIL # 0.2 TH/MM3 (0-0.4); EOSINOPHIL % 1.6 % (0.0-4.0); HEMATOCRIT 21.1 % (39.0-51.0); HEMO FLAGS DIFF FINAL; HEMOGLOBIN 7.1 GM/DL (13.0-17.0); LYMPH % 9.2 % (9.0-44.0); LYMPHOCYTE # 1.3 TH/MM3 (1.0-4.8); MEAN CELL VOLUME 94.5 FL (80.0-100.0); MEAN CORPUSCULAR HEMOGLOBIN 31.8 PG (27.0-34.0); MEAN CORPUSCULAR HGB CONC 33.6 % (32.0-36.0); MEAN PLATELET VOLUME 9.3 FL (7.0-11.0); MONO % 5.1 % (0.0-8.0); MONOCYTE # 0.7 TH/MM3 (0-0.9); NEUT % 83.4 % (16.0-70.0); PLATELET COUNT 481 TH/MM3 (150-450); RED BLOOD COUNT 2.23 MIL/MM3 (4.50-5.90); RED CELL DISTRIBUTION WIDTH 14.7 % (11.6-17.2); WHITE BLOOD COUNT 13.9 TH/MM3 (4.0-11.0)
[2017-04-06 07:40] LABS: ANION GAP 9 MEQ/L (5-15); BICARBONATE 22.9 MEQ/L (21.0-32.0); BLOOD UREA NITROGEN 11 MG/DL (7-18); CALCIUM 7.4 MG/DL (8.5-10.1); CHLORIDE 102 MEQ/L (98-107); CREATININE 0.35 MG/DL (0.60-1.30); GLOMERULAR FILTRATION RATE 295 ML/MIN (>89); GLUCOSE,RANDOM 55 MG/DL (74-106); POTASSIUM 3.4 MEQ/L (3.5-5.1); SODIUM (NA) 134 MEQ/L (136-145)
[2017-04-06] MEDS: CHLORHEXIDINE 0.12% (ORAL KIT) 15 ML CUP MT ×2 (08:00→20:00)
[2017-04-06 08:03] LABS: CALCIUM-PROTEIN CORRECTED 8.1 MG/DL (8.5-10.1); TOTAL PROTEIN 5.9 GM/DL (6.4-8.2)
[2017-04-06] MEDS: GLYCERIN ADULT 2 GM SUPP RECTAL (09:00)
[2017-04-06] MEDS: metroNIDAZOLE 500 MG TAB PO ×3 (09:37→22:42)
[2017-04-06] MEDS: SODIUM CHLORIDE 0.9% FLUSH 10 ML FLUSH IV FLUSH ×4 (09:37→20:11)
[2017-04-06] MEDS: PANTOPRAZOLE SODIUM 40 MG VIAL IV PUSH (09:37)
[2017-04-06] MEDS: THIAMINE HCL 100 MG TAB PO (09:38)
[2017-04-06] MEDS: ARTIFICIAL TEARS OPTH SOLN 15 ML BTL EACH EYE ×3 (09:38→17:53)
[2017-04-06] MEDS: PIPERACIL-TAZO 4.5 GM PREMIX 100 ML IV (10:47)
[2017-04-06 13:29] LABS: HEMOGLOBIN 8.2 GM/DL (13.0-17.0)
[2017-04-06 13:29] LABS: REVIEW FLAG FINAL
[2017-04-06] MEDS: REMOVE OLD DURAGESIC (FENTANYL) PATCH T-DERMAL (18:00)
[2017-04-06] MEDS: BISACODYL 10 MG SUPP RECTAL (20:11)
[2017-04-06] MEDS: LATANOPROST 0.005% OPHT SOLN 2.5 ML BTL EACH EYE (20:12)
[2017-04-06 20:30] LABS: C. DIFF EPI 027 PRESUMPTIVE NEGATIVE (NEGATIVE); C. DIFF TOXIN PCR NEGATIVE (NEGATIVE)
[2017-04-06] MEDS: SODIUM CHLOR 0.9% 1000 ML INJ 1,000 ML IV (20:45)
[2017-04-06 21:44] LABS: POTASSIUM 4.5 MEQ/L (3.5-5.1)
[2017-04-07] MEDS: RESP: ALBUTEROL 2.5 MG/IPRATROPIUM 0.5 MG NEB (SCH) NEB ×6 (00:21→20:36)
[2017-04-07] MEDS: DILTIAZEM HCL 60 MG TAB PO ×4 (02:08→19:55)
[2017-04-07] MEDS: CHLORHEXIDINE GLUCONATE 2 % 1 PACK (2 CLOTHS) TOP (03:17)
[2017-04-07] MEDS: metroNIDAZOLE 500 MG TAB PO ×3 (05:03→20:52)
[2017-04-07] MEDS: HEPARIN SODIUM - SQ 10,000 UNITS/ML VIAL SQ ×2 (05:03→19:17)
[2017-04-07] MEDS: INSULIN NovoLIN REGULAR SUPPLEMENTAL SCALE SQ ×4 (06:06→18:00)
[2017-04-07 06:24] LABS: AUTOMATED NEUTROPHIL # 9.9 TH/MM3 (1.8-7.7); BASOPHIL # 0.1 TH/MM3 (0-0.2); BASOPHIL % 0.6 % (0.0-2.0); EOSINOPHIL # 0.1 TH/MM3 (0-0.4); EOSINOPHIL % 0.5 % (0.0-4.0); HEMATOCRIT 22.6 % (39.0-51.0); HEMOGLOBIN 7.2 GM/DL (13.0-17.0); LYMPHOCYTE # 1.3 TH/MM3 (1.0-4.8); MEAN CELL VOLUME 93.8 FL (80.0-100.0); MEAN CORPUSCULAR HEMOGLOBIN 29.9 PG (27.0-34.0); MEAN CORPUSCULAR HGB CONC 31.9 % (32.0-36.0); MEAN PLATELET VOLUME 9.2 FL (7.0-11.0); MONO % 5.9 % (0.0-8.0); MONOCYTE # 0.7 TH/MM3 (0-0.9); PLATELET COUNT 550 TH/MM3 (150-450); RED BLOOD COUNT 2.41 MIL/MM3 (4.50-5.90); RED CELL DISTRIBUTION WIDTH 15.3 % (11.6-17.2); WHITE BLOOD COUNT 12.1 TH/MM3 (4.0-11.0)
[2017-04-07 06:35] LABS: HEMO FLAGS AUTO DIFF
[2017-04-07 07:09] LABS: ANION GAP 14 MEQ/L (5-15); BICARBONATE 18.5 MEQ/L (21.0-32.0); BLOOD UREA NITROGEN 15 MG/DL (7-18); CALCIUM 7.5 MG/DL (8.5-10.1); CHLORIDE 100 MEQ/L (98-107); CREATININE 0.55 MG/DL (0.60-1.30); GLOMERULAR FILTRATION RATE 175 ML/MIN (>89); GLUCOSE,RANDOM 260 MG/DL (74-106); MAGNESIUM 1.8 MG/DL (1.5-2.5); SODIUM (NA) 132 MEQ/L (136-145)
[2017-04-07] MEDS: CHLORHEXIDINE 0.12% (ORAL KIT) 15 ML CUP MT ×2 (08:00→20:00)
[2017-04-07] MEDS: SODIUM CHLORIDE 0.9% FLUSH 10 ML FLUSH IV FLUSH ×4 (09:00→19:56)
[2017-04-07] MEDS: GLYCERIN ADULT 2 GM SUPP RECTAL (09:00)
[2017-04-07 09:04] LABS: BANDS 2 % (0-6); LYMPHOCYTES 7 % (9-44); METAMYELOCYTES 1 % (0-1); MONOCYTES 3 % (0-8); NEUTROPHIL # MANUAL DIFF 10.9 TH/MM3 (1.8-7.7); PLATELET ESTIMATE SMEAR HIGH (NORMAL); PLATELET MORPHOLOGY ENLARGED (NORMAL); POLYS (SEG NEUTROPHILS) 87 % (16-70); SCAN/DIFF FINAL DIFF MANUAL; WBC DIFF SAMPLE 100
[2017-04-07 09:05] LABS: POLYCHROMASIA 2.9 % (0.0-1.9)
[2017-04-07] MEDS: PANTOPRAZOLE SODIUM 40 MG VIAL IV PUSH (10:23)
[2017-04-07] MEDS: THIAMINE HCL 100 MG TAB PO (10:23)
[2017-04-07] MEDS: ARTIFICIAL TEARS OPTH SOLN 15 ML BTL EACH EYE ×3 (13:00→19:56)
[2017-04-07 14:03] LABS: HEMOGLOBIN 7.8 GM/DL (13.0-17.0)
[2017-04-07 14:03] LABS: HEMATOCRIT 23.3 % (39.0-51.0); REVIEW FLAG FINAL
[2017-04-07] MEDS: BISACODYL 10 MG SUPP RECTAL (19:56)
[2017-04-07] MEDS: LATANOPROST 0.005% OPHT SOLN 2.5 ML BTL EACH EYE (19:56)
[2017-04-07] MEDS: INSULIN DETEMIR 100 UNITS/ML VIAL SQ (20:51)
[2017-04-07] MEDS: MORPHINE SULFATE 2 MG/ML INJ IV (21:00)
[2017-04-07] MEDS: SODIUM CHLOR 0.9% 1000 ML INJ 1,000 ML IV (23:30)
[2017-04-08] MEDS: RESP: ALBUTEROL 2.5 MG/IPRATROPIUM 0.5 MG NEB (SCH) NEB ×7 (00:07→23:31)
[2017-04-08] MEDS: INSULIN NovoLIN REGULAR SUPPLEMENTAL SCALE SQ ×5 (00:14→23:40)
[2017-04-08] MEDS: DILTIAZEM HCL 60 MG TAB PO ×4 (01:15→20:28)
[2017-04-08] MEDS: CHLORHEXIDINE GLUCONATE 2 % 1 PACK (2 CLOTHS) TOP (04:00)
[2017-04-08] MEDS: metroNIDAZOLE 500 MG TAB PO ×3 (04:54→22:08)
[2017-04-08] MEDS: HEPARIN SODIUM - SQ 10,000 UNITS/ML VIAL SQ ×2 (04:54→20:28)
[2017-04-08 05:38] LABS: AUTOMATED NEUTROPHIL # 11.3 TH/MM3 (1.8-7.7); BASOPHIL # 0.1 TH/MM3 (0-0.2); BASOPHIL % 0.9 % (0.0-2.0); EOSINOPHIL # 0.2 TH/MM3 (0-0.4); EOSINOPHIL % 1.1 % (0.0-4.0); HEMATOCRIT 25.2 % (39.0-51.0); HEMOGLOBIN 8.2 GM/DL (13.0-17.0); LYMPH % 13.7 % (9.0-44.0); MEAN CELL VOLUME 93.8 FL (80.0-100.0); MEAN CORPUSCULAR HEMOGLOBIN 30.4 PG (27.0-34.0); MEAN CORPUSCULAR HGB CONC 32.4 % (32.0-36.0); MONO % 6.7 % (0.0-8.0); NEUT % 77.6 % (16.0-70.0); PLATELET COUNT 614 TH/MM3 (150-450); RED BLOOD COUNT 2.68 MIL/MM3 (4.50-5.90); RED CELL DISTRIBUTION WIDTH 15.5 % (11.6-17.2); WHITE BLOOD COUNT 14.6 TH/MM3 (4.0-11.0)
[2017-04-08 05:44] LABS: HEMO FLAGS AUTO DIFF
[2017-04-08 06:14] LABS: ANION GAP 9 MEQ/L (5-15); BICARBONATE 21.8 MEQ/L (21.0-32.0); BLOOD UREA NITROGEN 13 MG/DL (7-18); CALCIUM 7.9 MG/DL (8.5-10.1); CHLORIDE 102 MEQ/L (98-107); CREATININE 0.44 MG/DL (0.60-1.30); GLOMERULAR FILTRATION RATE 226 ML/MIN (>89); GLUCOSE,RANDOM 88 MG/DL (74-106); POTASSIUM 4.2 MEQ/L (3.5-5.1); SODIUM (NA) 133 MEQ/L (136-145)
[2017-04-08] MEDS: CHLORHEXIDINE 0.12% (ORAL KIT) 15 ML CUP MT ×2 (08:00→20:00)
[2017-04-08] MEDS: THIAMINE HCL 100 MG TAB PO (08:58)
[2017-04-08] MEDS: PANTOPRAZOLE SODIUM 40 MG VIAL IV PUSH (08:59)
[2017-04-08] MEDS: GLYCERIN ADULT 2 GM SUPP RECTAL (08:59)
[2017-04-08] MEDS: SODIUM CHLORIDE 0.9% FLUSH 10 ML FLUSH IV FLUSH ×4 (08:59→20:31)
[2017-04-08] MEDS: ARTIFICIAL TEARS OPTH SOLN 15 ML BTL EACH EYE ×3 (09:00→20:32)
[2017-04-08 09:06] LABS: BANDS 2 % (0-6); BASOPHILS 1 % (0-2); LYMPHOCYTES 14 % (9-44); MONOCYTES 9 % (0-8); MYELOCYTES 2 % (0-0); NEUTROPHIL # MANUAL DIFF 11.1 TH/MM3 (1.8-7.7); POLYS (SEG NEUTROPHILS) 72 % (16-70); WBC DIFF SAMPLE 100
[2017-04-08 09:07] LABS: PLATELET ESTIMATE SMEAR HIGH (NORMAL); PLATELET MORPHOLOGY NORMAL (NORMAL); SCAN/DIFF FINAL DIFF MANUAL
[2017-04-08] MEDS: LATANOPROST 0.005% OPHT SOLN 2.5 ML BTL EACH EYE (20:29)
[2017-04-08] MEDS: INSULIN DETEMIR 100 UNITS/ML VIAL SQ (20:31)
[2017-04-08] MEDS: SODIUM CHLOR 0.9% 1000 ML INJ 1,000 ML IV (23:42)
[2017-04-09] MEDS: DILTIAZEM HCL 60 MG TAB PO ×4 (02:03→20:32)
[2017-04-09] MEDS: RESP: ALBUTEROL 2.5 MG/IPRATROPIUM 0.5 MG NEB (SCH) NEB ×6 (03:06→23:06)
[2017-04-09] MEDS: CHLORHEXIDINE GLUCONATE 2 % 1 PACK (2 CLOTHS) TOP ×2 (04:00→23:46)
[2017-04-09 04:58] LABS: BASOPHIL # 0.1 TH/MM3 (0-0.2); BASOPHIL % 0.6 % (0.0-2.0); EOSINOPHIL # 0.2 TH/MM3 (0-0.4); EOSINOPHIL % 1.1 % (0.0-4.0); HEMATOCRIT 24.7 % (39.0-51.0); HEMOGLOBIN 8.1 GM/DL (13.0-17.0); LYMPH % 11.8 % (9.0-44.0); LYMPHOCYTE # 1.9 TH/MM3 (1.0-4.8); MEAN CELL VOLUME 93.9 FL (80.0-100.0); MEAN CORPUSCULAR HEMOGLOBIN 30.6 PG (27.0-34.0); MEAN CORPUSCULAR HGB CONC 32.6 % (32.0-36.0); MEAN PLATELET VOLUME 8.7 FL (7.0-11.0); MONO % 5.3 % (0.0-8.0); MONOCYTE # 0.9 TH/MM3 (0-0.9); NEUT % 81.2 % (16.0-70.0); PLATELET COUNT 564 TH/MM3 (150-450); RED BLOOD COUNT 2.63 MIL/MM3 (4.50-5.90); RED CELL DISTRIBUTION WIDTH 15.1 % (11.6-17.2)
[2017-04-09 05:04] LABS: HEMO FLAGS AUTO DIFF
[2017-04-09 05:22] LABS: ANION GAP 8 MEQ/L (5-15); BLOOD UREA NITROGEN 13 MG/DL (7-18); CALCIUM 8.1 MG/DL (8.5-10.1); CHLORIDE 99 MEQ/L (98-107); CREATININE 0.51 MG/DL (0.60-1.30); GLOMERULAR FILTRATION RATE 191 ML/MIN (>89); GLUCOSE,RANDOM 130 MG/DL (74-106); MAGNESIUM 1.6 MG/DL (1.5-2.5); POTASSIUM 4.4 MEQ/L (3.5-5.1); SODIUM (NA) 131 MEQ/L (136-145)
[2017-04-09 05:26] LABS: PHOSPHORUS 1.8 MG/DL (2.5-4.9)
[2017-04-09 06:07] LABS: BASOPHILS 2 % (0-2); CORRECTED NUCLEATED RBC 1 /100 WBC (0-0); EOSINOPHILS 1 % (0-4); LYMPHOCYTES 5 % (9-44); MONOCYTES 4 % (0-8); MYELOCYTES 2 % (0-0); NEUTROPHIL # MANUAL DIFF 14.1 TH/MM3 (1.8-7.7); NUCLEATED RED BLOOD CELL 1 (0-0); POLYS (SEG NEUTROPHILS) 86 % (16-70); WBC DIFF SAMPLE 100
[2017-04-09 06:09] LABS: PLATELET ESTIMATE SMEAR HIGH (NORMAL); PLATELET MORPHOLOGY NORMAL (NORMAL); SCAN/DIFF FINAL DIFF MANUAL
[2017-04-09] MEDS: SODIUM CHLOR 0.9% 1000 ML INJ 1,000 ML IV (06:35)
[2017-04-09] MEDS: HEPARIN SODIUM - SQ 10,000 UNITS/ML VIAL SQ ×2 (06:50→17:31)
[2017-04-09] MEDS: metroNIDAZOLE 500 MG TAB PO ×3 (06:50→21:28)
[2017-04-09] MEDS: INSULIN NovoLIN REGULAR SUPPLEMENTAL SCALE SQ ×3 (06:51→17:32)
[2017-04-09] MEDS: CHLORHEXIDINE 0.12% (ORAL KIT) 15 ML CUP MT ×2 (08:00→20:00)
[2017-04-09] MEDS: SODIUM CHLORIDE 0.9% FLUSH 10 ML FLUSH IV FLUSH ×4 (09:00→20:32)
[2017-04-09] MEDS: ARTIFICIAL TEARS OPTH SOLN 15 ML BTL EACH EYE ×2 (09:00→13:00)
[2017-04-09] MEDS: THIAMINE HCL 100 MG TAB PO (10:28)
[2017-04-09] MEDS: LANSOPRAZOLE SOLUTAB 30 MG TAB NG (10:28)
[2017-04-09] MEDS: GLYCERIN ADULT 2 GM SUPP RECTAL (10:28)
[2017-04-09] MEDS: MAGNESIUM SULFATE 1 GM PREMIX 100 ML IV ×2 (19:00→20:32)
[2017-04-09] MEDS: MAGNESIUM OXIDE 400 MG TAB PO (20:32)
[2017-04-09] MEDS: LATANOPROST 0.005% OPHT SOLN 2.5 ML BTL EACH EYE (20:32)
[2017-04-09] MEDS: SODIUM PHOSPHATE INJ 30 MMOL in SODIUM CHLOR 0.9% 250 ML INJ 250 ML IV (20:38)
[2017-04-09] MEDS: INSULIN DETEMIR 100 UNITS/ML VIAL SQ (21:00)
[2017-04-10] MEDS: DILTIAZEM HCL 60 MG TAB PO ×4 (02:25→21:11)
[2017-04-10] MEDS: RESP: ALBUTEROL 2.5 MG/IPRATROPIUM 0.5 MG NEB (SCH) NEB ×6 (03:19→23:23)
[2017-04-10] MEDS: INSULIN NovoLIN REGULAR SUPPLEMENTAL SCALE SQ ×5 (06:00→23:56)
[2017-04-10] MEDS: metroNIDAZOLE 500 MG TAB PO ×3 (06:02→21:11)
[2017-04-10] MEDS: HEPARIN SODIUM - SQ 10,000 UNITS/ML VIAL SQ ×2 (06:03→18:00)
[2017-04-10 06:55] LABS: ALBUMIN 1.5 GM/DL (3.4-5.0); ANION GAP 11 MEQ/L (5-15); AST (GOT) 34 U/L (15-37); BICARBONATE 21.5 MEQ/L (21.0-32.0); CALCIUM 8.6 MG/DL (8.5-10.1); CHLORIDE 95 MEQ/L (98-107); CREATININE 0.48 MG/DL (0.60-1.30); GLOMERULAR FILTRATION RATE 205 ML/MIN (>89); GLUCOSE,RANDOM 145 MG/DL (74-106); MAGNESIUM 1.6 MG/DL (1.5-2.5); POTASSIUM 4.3 MEQ/L (3.5-5.1); SODIUM (NA) 127 MEQ/L (136-145)
[2017-04-10 06:56] LABS: ALT (GPT) 15 U/L (12-78); PHOSPHORUS 2.1 MG/DL (2.5-4.9)
[2017-04-10 06:58] LABS: ALKALINE PHOSPHATASE 231 U/L (45-117); TOTAL BILIRUBIN ADULT 0.2 MG/DL (0.2-1.0)
[2017-04-10 07:08] LABS: BLOOD UREA NITROGEN 11 MG/DL (7-18)
[2017-04-10 07:28] LABS: AUTOMATED NEUTROPHIL # 16.1 TH/MM3 (1.8-7.7); BASOPHIL # 0.1 TH/MM3 (0-0.2); BASOPHIL % 0.6 % (0.0-2.0); EOSINOPHIL # 0.2 TH/MM3 (0-0.4); EOSINOPHIL % 0.8 % (0.0-4.0); HEMATOCRIT 27.7 % (39.0-51.0); HEMO FLAGS AUTO DIFF; HEMOGLOBIN 9.1 GM/DL (13.0-17.0); LYMPH % 7.2 % (9.0-44.0); LYMPHOCYTE # 1.3 TH/MM3 (1.0-4.8); MEAN CELL VOLUME 93.9 FL (80.0-100.0); MEAN PLATELET VOLUME 9.5 FL (7.0-11.0); MONO % 4.9 % (0.0-8.0); MONOCYTE # 0.9 TH/MM3 (0-0.9); NEUT % 86.5 % (16.0-70.0); PLATELET COUNT 558 TH/MM3 (150-450); RED BLOOD COUNT 2.94 MIL/MM3 (4.50-5.90); RED CELL DISTRIBUTION WIDTH 15.3 % (11.6-17.2); WHITE BLOOD COUNT 18.6 TH/MM3 (4.0-11.0)
[2017-04-10] MEDS: CHLORHEXIDINE 0.12% (ORAL KIT) 15 ML CUP MT ×2 (08:00→20:00)
[2017-04-10 08:26] LABS: POLYCHROMASIA 2.2 % (0.0-1.9)
[2017-04-10 08:27] LABS: PLATELET ESTIMATE SMEAR HIGH (NORMAL); PLATELET MORPHOLOGY ENLARGED (NORMAL); SCAN/DIFF AUTO DIFF CONFIRMED
[2017-04-10] MEDS: SODIUM CHLORIDE 0.9% FLUSH 10 ML FLUSH IV FLUSH ×5 (09:00→21:00)
[2017-04-10] MEDS: LANSOPRAZOLE SOLUTAB 30 MG TAB NG (10:14)
[2017-04-10] MEDS: SODIUM PHOSPHATE INJ 15 MMOL in SODIUM CHLORIDE 0.9% INJ 100 ML IV (10:14)
[2017-04-10] MEDS: MAGNESIUM OXIDE 400 MG TAB PO ×2 (10:14→21:11)
[2017-04-10] MEDS: GLYCERIN ADULT 2 GM SUPP RECTAL (10:15)
[2017-04-10] MEDS: THIAMINE HCL 100 MG TAB PO (10:15)
[2017-04-10] MEDS: REMOVE OLD CATAPRES (CLONIDINE) PATCH T-DERMAL (12:29)
[2017-04-10] MEDS: cloNIDine HCL 0.3 MG/24 HR PATCH T-DERMAL (14:48)
[2017-04-10] MEDS: SODIUM CHLOR 0.9% 1000 ML INJ 1,000 ML IV (18:45)
[2017-04-10] MEDS: INSULIN DETEMIR 100 UNITS/ML VIAL SQ (21:11)
[2017-04-10] MEDS: LATANOPROST 0.005% OPHT SOLN 2.5 ML BTL EACH EYE (21:12)
[2017-04-11] MEDS: DILTIAZEM HCL 60 MG TAB PO ×4 (01:51→20:41)
[2017-04-11] MEDS: RESP: ALBUTEROL 2.5 MG/IPRATROPIUM 0.5 MG NEB (SCH) NEB ×6 (03:32→23:46)
[2017-04-11] MEDS: CHLORHEXIDINE GLUCONATE 2 % 1 PACK (2 CLOTHS) TOP (03:36)
[2017-04-11] MEDS: INSULIN NovoLIN REGULAR SUPPLEMENTAL SCALE SQ ×3 (05:18→17:29)
[2017-04-11] MEDS: metroNIDAZOLE 500 MG TAB PO ×3 (05:18→20:41)
[2017-04-11] MEDS: HEPARIN SODIUM - SQ 10,000 UNITS/ML VIAL SQ ×2 (05:18→17:34)
[2017-04-11] MEDS: SODIUM CHLOR 0.9% 1000 ML INJ 1,000 ML IV (05:19)
[2017-04-11 07:38] LABS: ALBUMIN 1.5 GM/DL (3.4-5.0); ALT (GPT) 17 U/L (12-78); ANION GAP 11 MEQ/L (5-15); AST (GOT) 33 U/L (15-37); BICARBONATE 21.5 MEQ/L (21.0-32.0); BLOOD UREA NITROGEN 12 MG/DL (7-18); CHLORIDE 101 MEQ/L (98-107); CREATININE 0.41 MG/DL (0.60-1.30); GLOMERULAR FILTRATION RATE 246 ML/MIN (>89); GLUCOSE,RANDOM 200 MG/DL (74-106); MAGNESIUM 1.7 MG/DL (1.5-2.5); POTASSIUM 4.1 MEQ/L (3.5-5.1); SODIUM (NA) 133 MEQ/L (136-145)
[2017-04-11 07:40] LABS: ALKALINE PHOSPHATASE 241 U/L (45-117); TOTAL BILIRUBIN ADULT 0.2 MG/DL (0.2-1.0); TOTAL PROTEIN 6.6 GM/DL (6.4-8.2)
[2017-04-11 07:58] LABS: BASOPHIL # 0.1 TH/MM3 (0-0.2); EOSINOPHIL # 0.1 TH/MM3 (0-0.4); EOSINOPHIL % 0.6 % (0.0-4.0); HEMATOCRIT 23.9 % (39.0-51.0); HEMO FLAGS DIFF FINAL; HEMOGLOBIN 8.4 GM/DL (13.0-17.0); LYMPH % 12.9 % (9.0-44.0); LYMPHOCYTE # 1.6 TH/MM3 (1.0-4.8); MEAN CELL VOLUME 92.5 FL (80.0-100.0); MEAN CORPUSCULAR HEMOGLOBIN 32.4 PG (27.0-34.0); MEAN CORPUSCULAR HGB CONC 35.1 % (32.0-36.0); MEAN PLATELET VOLUME 9.4 FL (7.0-11.0); MONO % 4.7 % (0.0-8.0); MONOCYTE # 0.6 TH/MM3 (0-0.9); NEUT % 80.8 % (16.0-70.0); PLATELET COUNT 558 TH/MM3 (150-450); RED BLOOD COUNT 2.58 MIL/MM3 (4.50-5.90); RED CELL DISTRIBUTION WIDTH 15.6 % (11.6-17.2); WHITE BLOOD COUNT 12.3 TH/MM3 (4.0-11.0)
[2017-04-11] MEDS: CHLORHEXIDINE 0.12% (ORAL KIT) 15 ML CUP MT ×2 (08:00→20:00)
[2017-04-11] MEDS: SODIUM CHLORIDE 0.9% FLUSH 10 ML FLUSH IV FLUSH ×4 (09:00→20:42)
[2017-04-11] MEDS: GLYCERIN ADULT 2 GM SUPP RECTAL (09:00)
[2017-04-11] MEDS: THIAMINE HCL 100 MG TAB PO (13:22)
[2017-04-11] MEDS: MAGNESIUM OXIDE 400 MG TAB PO (13:22)
[2017-04-11] MEDS: FUROSEMIDE 20 MG/2 ML VIAL IV PUSH (13:22)
[2017-04-11] MEDS: LANSOPRAZOLE SOLUTAB 30 MG TAB NG (13:23)
[2017-04-11] MEDS: SODIUM CHLORIDE 1 GRAM TAB PO (17:28)
[2017-04-11] MEDS: INSULIN DETEMIR 100 UNITS/ML VIAL SQ (20:42)
[2017-04-11] MEDS: LATANOPROST 0.005% OPHT SOLN 2.5 ML BTL EACH EYE (20:42)
[2017-04-12] MEDS: INSULIN NovoLIN REGULAR SUPPLEMENTAL SCALE SQ ×4 (00:58→17:22)
[2017-04-12] MEDS: DILTIAZEM HCL 60 MG TAB PO ×4 (00:59→20:45)
[2017-04-12] MEDS: SODIUM CHLORIDE 1 GRAM TAB PO ×2 (00:59→12:18)
[2017-04-12] MEDS: RESP: ALBUTEROL 2.5 MG/IPRATROPIUM 0.5 MG NEB (SCH) NEB ×5 (03:55→20:31)
[2017-04-12] MEDS: CHLORHEXIDINE GLUCONATE 2 % 1 PACK (2 CLOTHS) TOP (04:00)
[2017-04-12] MEDS: HEPARIN SODIUM - SQ 10,000 UNITS/ML VIAL SQ ×2 (05:27→17:21)
[2017-04-12] MEDS: metroNIDAZOLE 500 MG TAB PO ×3 (05:27→21:28)
[2017-04-12] MEDS: CHLORHEXIDINE 0.12% (ORAL KIT) 15 ML CUP MT ×2 (08:00→20:00)
[2017-04-12] MEDS: GLYCERIN ADULT 2 GM SUPP RECTAL (09:00)
[2017-04-12] MEDS: LANSOPRAZOLE SOLUTAB 30 MG TAB NG (09:24)
[2017-04-12] MEDS: SODIUM CHLORIDE 0.9% FLUSH 10 ML FLUSH IV FLUSH ×4 (09:24→20:45)
[2017-04-12] MEDS: THIAMINE HCL 100 MG TAB PO (09:24)
[2017-04-12] MEDS: FLUCONAZOLE 100 MG TAB PO (16:13)
[2017-04-12] MEDS: INSULIN DETEMIR 100 UNITS/ML VIAL SQ (20:44)
[2017-04-12] MEDS: LATANOPROST 0.005% OPHT SOLN 2.5 ML BTL EACH EYE (20:47)
[2017-04-13] MEDS: DILTIAZEM HCL 60 MG TAB PO ×4 (01:15→20:29)
[2017-04-13] MEDS: SODIUM CHLORIDE 1 GRAM TAB PO ×2 (01:15→13:11)
[2017-04-13] MEDS: INSULIN NovoLIN REGULAR SUPPLEMENTAL SCALE SQ ×4 (01:16→18:25)
[2017-04-13] MEDS: RESP: ALBUTEROL 2.5 MG/IPRATROPIUM 0.5 MG NEB (SCH) NEB ×4 (03:27→19:38)
[2017-04-13] MEDS: CHLORHEXIDINE GLUCONATE 2 % 1 PACK (2 CLOTHS) TOP ×2 (04:00→21:57)
[2017-04-13] MEDS: metroNIDAZOLE 500 MG TAB PO ×3 (05:54→21:45)
[2017-04-13] MEDS: HEPARIN SODIUM - SQ 10,000 UNITS/ML VIAL SQ ×2 (05:54→17:21)
[2017-04-13 06:26] LABS: AUTOMATED NEUTROPHIL # 8.9 TH/MM3 (1.8-7.7); BASOPHIL # 0.1 TH/MM3 (0-0.2); BASOPHIL % 0.8 % (0.0-2.0); EOSINOPHIL # 0.2 TH/MM3 (0-0.4); EOSINOPHIL % 1.4 % (0.0-4.0); HEMATOCRIT 24.7 % (39.0-51.0); HEMO FLAGS DIFF FINAL; HEMOGLOBIN 8.2 GM/DL (13.0-17.0); LYMPH % 17.5 % (9.0-44.0); LYMPHOCYTE # 2.1 TH/MM3 (1.0-4.8); MEAN CELL VOLUME 95.4 FL (80.0-100.0); MEAN CORPUSCULAR HEMOGLOBIN 31.5 PG (27.0-34.0); MEAN CORPUSCULAR HGB CONC 33.1 % (32.0-36.0); MEAN PLATELET VOLUME 8.8 FL (7.0-11.0); MONO % 5.9 % (0.0-8.0); MONOCYTE # 0.7 TH/MM3 (0-0.9); NEUT % 74.4 % (16.0-70.0); PLATELET COUNT 572 TH/MM3 (150-450); RED BLOOD COUNT 2.59 MIL/MM3 (4.50-5.90)
[2017-04-13 06:38] LABS: ALBUMIN 1.7 GM/DL (3.4-5.0); ALT (GPT) 21 U/L (12-78); ANION GAP 8 MEQ/L (5-15); AST (GOT) 43 U/L (15-37); BICARBONATE 23.5 MEQ/L (21.0-32.0); BLOOD UREA NITROGEN 15 MG/DL (7-18); CALCIUM 8.3 MG/DL (8.5-10.1); CHLORIDE 100 MEQ/L (98-107); CREATININE 0.47 MG/DL (0.60-1.30); GLOMERULAR FILTRATION RATE 210 ML/MIN (>89); GLUCOSE,RANDOM 64 MG/DL (74-106); MAGNESIUM 1.8 MG/DL (1.5-2.5); POTASSIUM 4.9 MEQ/L (3.5-5.1); SODIUM (NA) 131 MEQ/L (136-145)
[2017-04-13 06:57] LABS: ALKALINE PHOSPHATASE 227 U/L (45-117); TOTAL BILIRUBIN ADULT 0.2 MG/DL (0.2-1.0); TOTAL PROTEIN 6.9 GM/DL (6.4-8.2)
[2017-04-13] MEDS: CHLORHEXIDINE 0.12% (ORAL KIT) 15 ML CUP MT ×2 (08:00→19:54)
[2017-04-13] MEDS: SODIUM CHLORIDE 0.9% FLUSH 10 ML FLUSH IV FLUSH ×4 (09:00→20:29)
[2017-04-13] MEDS: GLYCERIN ADULT 2 GM SUPP RECTAL (09:00)
[2017-04-13] MEDS: DIATRIZOATE MEGLUM/DIATRIZOATE SOD 120 ML BTL (for RAD DIAG) PO (09:55)
[2017-04-13] MEDS: THIAMINE HCL 100 MG TAB PO (10:59)
[2017-04-13] MEDS: LANSOPRAZOLE SOLUTAB 30 MG TAB NG (11:00)
[2017-04-13] MEDS: FLUCONAZOLE 100 MG TAB PO (11:00)
[2017-04-13 18:13] LABS: BLOOD GAS BASE EXCESS -0.5 mmol/L (-2-2); BLOOD GAS CARBOXYHEMOGLOBIN 1.6 % (0-4); BLOOD GAS HCO3 22 mmol/L (22-26); BLOOD GAS METHEMOGLOBIN 1.1 % (0-2); BLOOD GAS O2 HGB SATURATION 96 % (90-100); BLOOD GAS OXYGEN CONTENT 11.9 Vol % (12.0-20.0); BLOOD GAS PCO2 26 mmHg (38-42); BLOOD GAS PO2 121 mmHg (61-120); BLOOD GAS TOTAL HGB 8.6 G/DL (12.0-16.0); TEMP CORR TO 98.6
[2017-04-13 18:14] LABS: CRITICAL VALUE YES; DRAW SITE RT RADIAL; LITER FLOW 6 L/M; NUMBER OF ARTERIAL PUNCTURES 1; OXYGEN DEVICE NASAL CANNULA; STAT YES; ULNAR PULSE PRESENT
[2017-04-13] MEDS: MORPHINE SULFATE 2 MG/ML INJ IV (18:33)
[2017-04-13] MEDS: INSULIN DETEMIR 100 UNITS/ML VIAL SQ (20:29)
[2017-04-13] MEDS: LATANOPROST 0.005% OPHT SOLN 2.5 ML BTL EACH EYE (20:29)
[2017-04-14] MEDS: INSULIN NovoLIN REGULAR SUPPLEMENTAL SCALE SQ ×5 (00:41→23:27)
[2017-04-14] MEDS: DILTIAZEM HCL 60 MG TAB PO ×4 (01:55→19:55)
[2017-04-14] MEDS: SODIUM CHLORIDE 1 GRAM TAB PO ×2 (01:58→12:11)
[2017-04-14] MEDS: RESP: ALBUTEROL 2.5 MG/IPRATROPIUM 0.5 MG NEB (SCH) NEB ×4 (03:41→21:05)
[2017-04-14] MEDS: metroNIDAZOLE 500 MG TAB PO ×3 (05:41→21:19)
[2017-04-14] MEDS: HEPARIN SODIUM - SQ 10,000 UNITS/ML VIAL SQ ×2 (05:41→18:00)
[2017-04-14] MEDS: CHLORHEXIDINE 0.12% (ORAL KIT) 15 ML CUP MT (08:00)
[2017-04-14] MEDS: GLYCERIN ADULT 2 GM SUPP RECTAL (08:00)
[2017-04-14] MEDS: FLUCONAZOLE 100 MG TAB PO (08:36)
[2017-04-14] MEDS: THIAMINE HCL 100 MG TAB PO (08:37)
[2017-04-14] MEDS: LANSOPRAZOLE SOLUTAB 30 MG TAB NG (08:37)
[2017-04-14] MEDS: SODIUM CHLORIDE 0.9% FLUSH 10 ML FLUSH IV FLUSH ×4 (08:45→20:12)
[2017-04-14] MEDS: LIDOCAINE HCL 1% PF 5 ML SYRINGE OTHER (12:00)
[2017-04-14] MEDS: LACTATED RINGER'S 1000 ML INJ 1,000 ML IV (12:00)
[2017-04-14] MEDS: PHENYLEPH/NS 1000 MCG/10 ML SYR IV (12:00)
[2017-04-14] MEDS: ePHEDrine/NS 25 MG/5 ML SYRINGE IV (12:00)
[2017-04-14] MEDS: PROPOFOL 200 MG/20 ML AMP IV (12:00)
[2017-04-14] MEDS ORDERED: DO NOT ADM ANY ANTICOAGULANT DRUGS (17:38)
[2017-04-14] MEDS: LATANOPROST 0.005% OPHT SOLN 2.5 ML BTL EACH EYE (20:12)
[2017-04-14] MEDS: INSULIN DETEMIR 100 UNITS/ML VIAL SQ (21:19)
[2017-04-14] MEDS: CHLORHEXIDINE GLUCONATE 2 % 1 PACK (2 CLOTHS) TOP (23:32)
[2017-04-15] MEDS: SODIUM CHLORIDE 1 GRAM TAB PO ×2 (01:13→13:00)
[2017-04-15] MEDS: DILTIAZEM HCL 60 MG TAB PO ×4 (01:13→19:28)
[2017-04-15] MEDS: RESP: ALBUTEROL 2.5 MG/IPRATROPIUM 0.5 MG NEB (SCH) NEB ×4 (03:17→20:28)
[2017-04-15] MEDS: HEPARIN SODIUM - SQ 10,000 UNITS/ML VIAL SQ ×2 (05:45→17:21)
[2017-04-15] MEDS: metroNIDAZOLE 500 MG TAB PO ×3 (05:49→19:28)
[2017-04-15] MEDS: INSULIN NovoLIN REGULAR SUPPLEMENTAL SCALE SQ ×4 (05:49→23:46)
[2017-04-15 06:12] LABS: HEMATOCRIT 26.6 % (39.0-51.0); HEMOGLOBIN 8.9 GM/DL (13.0-17.0); MEAN CELL VOLUME 94.3 FL (80.0-100.0); MEAN CORPUSCULAR HEMOGLOBIN 31.5 PG (27.0-34.0); MEAN CORPUSCULAR HGB CONC 33.4 % (32.0-36.0); MEAN PLATELET VOLUME 8.5 FL (7.0-11.0); PLATELET COUNT 504 TH/MM3 (150-450); RED BLOOD COUNT 2.82 MIL/MM3 (4.50-5.90); RED CELL DISTRIBUTION WIDTH 16.4 % (11.6-17.2); REVIEW FLAG FINAL; WHITE BLOOD COUNT 11.4 TH/MM3 (4.0-11.0)
[2017-04-15] MEDS: FLUCONAZOLE 100 MG TAB PO (08:40)
[2017-04-15] MEDS: THIAMINE HCL 100 MG TAB PO (08:40)
[2017-04-15] MEDS: GLYCERIN ADULT 2 GM SUPP RECTAL (08:41)
[2017-04-15] MEDS: LANSOPRAZOLE SOLUTAB 30 MG TAB NG (08:51)
[2017-04-15] MEDS: SODIUM CHLORIDE 0.9% FLUSH 10 ML FLUSH IV FLUSH ×4 (08:52→19:28)
[2017-04-15] MEDS: MORPHINE SULFATE 2 MG/ML INJ IV (13:47)
[2017-04-15] MEDS: INSULIN DETEMIR 100 UNITS/ML VIAL SQ (19:28)
[2017-04-15] MEDS: LATANOPROST 0.005% OPHT SOLN 2.5 ML BTL EACH EYE (19:29)
[2017-04-16] MEDS: RESP: ALBUTEROL 2.5 MG/IPRATROPIUM 0.5 MG NEB (SCH) NEB ×3 (02:22→15:03)
[2017-04-16] MEDS: DILTIAZEM HCL 60 MG TAB PO ×4 (02:44→22:37)
[2017-04-16] MEDS: SODIUM CHLORIDE 1 GRAM TAB PO ×2 (02:44→13:13)
[2017-04-16] MEDS: CHLORHEXIDINE GLUCONATE 2 % 1 PACK (2 CLOTHS) TOP (04:00)
[2017-04-16] MEDS: INSULIN NovoLIN REGULAR SUPPLEMENTAL SCALE SQ ×3 (05:50→18:20)
[2017-04-16] MEDS: metroNIDAZOLE 500 MG TAB PO ×3 (05:51→22:37)
[2017-04-16] MEDS: HEPARIN SODIUM - SQ 10,000 UNITS/ML VIAL SQ ×2 (05:51→18:20)
[2017-04-16 06:32] LABS: SODIUM (NA) 128 MEQ/L (136-145)
[2017-04-16] MEDS: SODIUM CHLORIDE 0.9% FLUSH 10 ML FLUSH IV FLUSH ×4 (08:48→22:37)
[2017-04-16] MEDS: GLYCERIN ADULT 2 GM SUPP RECTAL (08:50)
[2017-04-16] MEDS: LANSOPRAZOLE SOLUTAB 30 MG TAB NG (08:50)
[2017-04-16] MEDS: FLUCONAZOLE 100 MG TAB PO (08:50)
[2017-04-16] MEDS: THIAMINE HCL 100 MG TAB PO (09:00)
[2017-04-16] MEDS: LATANOPROST 0.005% OPHT SOLN 2.5 ML BTL EACH EYE (21:00)
[2017-04-16] MEDS: INSULIN DETEMIR 100 UNITS/ML VIAL SQ (22:37)
[2017-04-17] MEDS: INSULIN NovoLIN REGULAR SUPPLEMENTAL SCALE SQ ×4 (00:54→18:43)
[2017-04-17] MEDS: SODIUM CHLORIDE 1 GRAM TAB PO ×2 (00:55→13:00)
[2017-04-17] MEDS: DILTIAZEM HCL 60 MG TAB PO ×4 (02:00→21:05)
[2017-04-17] MEDS: CHLORHEXIDINE GLUCONATE 2 % 1 PACK (2 CLOTHS) TOP (04:00)
[2017-04-17] MEDS: metroNIDAZOLE 500 MG TAB PO ×3 (06:00→21:05)
[2017-04-17] MEDS ORDERED: SODIUM CHLORID 0.9% 500 ML IV (07:00)
[2017-04-17] MEDS ORDERED: POVIDONE IODINE 5% (ANTISEPSIS KIT) 4 APPLICATIONS EACH NARE (07:00)
[2017-04-17] MEDS ORDERED: METOPROLOL TARTRATE 25 MG TAB PO (07:00)
[2017-04-17] MEDS ORDERED: LACTATED RINGER'S 1000 ML IV (07:00)
[2017-04-17] MEDS ORDERED: CHLORHEXIDINE GLUCONATE 2 % 1 PACK (2 CLOTHS) TOPICAL (07:00)
[2017-04-17] MEDS ORDERED: RESP: ALBUTEROL 2.5 MG/IPRATROPIUM 0.5 MG NEB (PRN) NEB (08:30)
[2017-04-17] MEDS: GLYCERIN ADULT 2 GM SUPP RECTAL (09:00)
[2017-04-17] MEDS: SODIUM CHLORIDE 0.9% FLUSH 10 ML FLUSH IV FLUSH ×4 (09:00→21:05)
[2017-04-17] MEDS: FLUCONAZOLE 100 MG TAB PO (09:00)
[2017-04-17] MEDS: LANSOPRAZOLE SOLUTAB 30 MG TAB NG (09:00)
[2017-04-17] MEDS: THIAMINE HCL 100 MG TAB PO (09:00)
[2017-04-17] MEDS: ONDANSETRON HCL 4 MG/2 ML VIAL IV (12:00)
[2017-04-17] MEDS: LABETALOL HCL 100 MG/20 ML VIAL IV (12:00)
[2017-04-17] MEDS: SUCCINYLCHOLINE CHLORIDE 200 MG/10 ML VIAL IV (12:00)
[2017-04-17] MEDS: LIDOCAINE HCL 1% PF 5 ML SYRINGE OTHER (12:00)
[2017-04-17] MEDS: PROPOFOL 200 MG/20 ML AMP IV (12:00)
[2017-04-17] MEDS: PHENYLEPH/NS 1000 MCG/10 ML SYR IV (12:00)
[2017-04-17] MEDS: REMOVE OLD CATAPRES (CLONIDINE) PATCH T-DERMAL (12:29)
[2017-04-17] MEDS: COLLAGENASE OINT 30 GM TUBE TOPICAL (15:45)
[2017-04-17] MEDS ORDERED: DO NOT ADM ANY ANTICOAGULANT DRUGS (18:23)
[2017-04-17] MEDS: cloNIDine HCL 0.3 MG/24 HR PATCH T-DERMAL (19:27)
[2017-04-17] MEDS: LATANOPROST 0.005% OPHT SOLN 2.5 ML BTL EACH EYE (21:25)
[2017-04-17] MEDS: INSULIN DETEMIR 100 UNITS/ML VIAL SQ (22:36)
[2017-04-18] MEDS: INSULIN NovoLIN REGULAR SUPPLEMENTAL SCALE SQ ×5 (00:33→23:22)
[2017-04-18] MEDS: SODIUM CHLORIDE 1 GRAM TAB PO ×2 (00:33→12:34)
[2017-04-18] MEDS: DILTIAZEM HCL 60 MG TAB PO ×4 (01:04→21:49)
[2017-04-18] MEDS: CHLORHEXIDINE GLUCONATE 2 % 1 PACK (2 CLOTHS) TOP (04:00)
[2017-04-18] MEDS: metroNIDAZOLE 500 MG TAB PO ×3 (05:52→21:49)
[2017-04-18] MEDS: SODIUM CHLORIDE 0.9% FLUSH 10 ML FLUSH IV FLUSH ×4 (07:49→21:50)
[2017-04-18] MEDS: THIAMINE HCL 100 MG TAB PO (08:06)
[2017-04-18] MEDS: GLYCERIN ADULT 2 GM SUPP RECTAL (08:06)
[2017-04-18] MEDS: FLUCONAZOLE 100 MG TAB PO (08:06)
[2017-04-18] MEDS: LANSOPRAZOLE SOLUTAB 30 MG TAB NG (08:06)
[2017-04-18] MEDS: COLLAGENASE OINT 30 GM TUBE TOPICAL (08:11)
[2017-04-18 12:31] LABS: BASOPHIL # 0.1 TH/MM3 (0-0.2); EOSINOPHIL # 0.1 TH/MM3 (0-0.4); EOSINOPHIL % 0.6 % (0.0-4.0); HEMATOCRIT 29.1 % (39.0-51.0); HEMO FLAGS DIFF FINAL; HEMOGLOBIN 9.3 GM/DL (13.0-17.0); LYMPH % 17.9 % (9.0-44.0); LYMPHOCYTE # 1.7 TH/MM3 (1.0-4.8); MEAN CELL VOLUME 93.9 FL (80.0-100.0); MONO % 5.1 % (0.0-8.0); MONOCYTE # 0.5 TH/MM3 (0-0.9); NEUT % 75.4 % (16.0-70.0); PLATELET COUNT 632 TH/MM3 (150-450); RED CELL DISTRIBUTION WIDTH 16.1 % (11.6-17.2); WHITE BLOOD COUNT 9.3 TH/MM3 (4.0-11.0)
[2017-04-18 13:27] LABS: ANION GAP 12 MEQ/L (5-15); BICARBONATE 22.3 MEQ/L (21.0-32.0); BLOOD UREA NITROGEN 16 MG/DL (7-18); CALCIUM 8.7 MG/DL (8.5-10.1); CHLORIDE 91 MEQ/L (98-107); CREATININE 0.52 MG/DL (0.60-1.30); GLOMERULAR FILTRATION RATE 187 ML/MIN (>89); GLUCOSE,RANDOM 266 MG/DL (74-106); POTASSIUM 4.6 MEQ/L (3.5-5.1); SODIUM (NA) 125 MEQ/L (136-145)
[2017-04-18] MEDS: LATANOPROST 0.005% OPHT SOLN 2.5 ML BTL EACH EYE (21:50)
[2017-04-18] MEDS: INSULIN DETEMIR 100 UNITS/ML VIAL SQ (23:20)
[2017-04-19] MEDS: DILTIAZEM HCL 60 MG TAB PO ×4 (01:40→21:01)
[2017-04-19] MEDS: SODIUM CHLORIDE 1 GRAM TAB PO ×3 (01:41→21:02)
[2017-04-19] MEDS: CHLORHEXIDINE GLUCONATE 2 % 1 PACK (2 CLOTHS) TOP (03:49)
[2017-04-19] MEDS: INSULIN NovoLIN REGULAR SUPPLEMENTAL SCALE SQ ×3 (05:27→17:44)
[2017-04-19] MEDS: metroNIDAZOLE 500 MG TAB PO ×3 (05:33→21:01)
[2017-04-19 07:18] LABS: SODIUM (NA) 128 MEQ/L (136-145)
[2017-04-19] MEDS: SODIUM CHLORIDE 0.9% FLUSH 10 ML FLUSH IV FLUSH ×4 (07:24→21:00)
[2017-04-19] MEDS: LANSOPRAZOLE SOLUTAB 30 MG TAB NG (08:21)
[2017-04-19] MEDS: FLUCONAZOLE 100 MG TAB PO (08:21)
[2017-04-19] MEDS: THIAMINE HCL 100 MG TAB PO (08:21)
[2017-04-19] MEDS: COLLAGENASE OINT 30 GM TUBE TOPICAL (08:21)
[2017-04-19] MEDS: GLYCERIN ADULT 2 GM SUPP RECTAL (08:21)
[2017-04-19] MEDS: LATANOPROST 0.005% OPHT SOLN 2.5 ML BTL EACH EYE (21:00)
[2017-04-19] MEDS: INSULIN DETEMIR 100 UNITS/ML VIAL SQ (21:01)
[2017-04-20] MEDS: INSULIN NovoLIN REGULAR SUPPLEMENTAL SCALE SQ ×4 (01:29→17:41)
[2017-04-20] MEDS: DILTIAZEM HCL 60 MG TAB PO ×3 (01:29→14:03)
[2017-04-20] MEDS: CHLORHEXIDINE GLUCONATE 2 % 1 PACK (2 CLOTHS) TOP (03:19)
[2017-04-20] MEDS: metroNIDAZOLE 500 MG TAB PO ×2 (05:22→14:03)
[2017-04-20] MEDS: SODIUM CHLORIDE 1 GRAM TAB PO ×2 (05:22→14:03)
[2017-04-20 07:06] LABS: AUTOMATED NEUTROPHIL # 4.1 TH/MM3 (1.8-7.7); BASOPHIL # 0.1 TH/MM3 (0-0.2); BASOPHIL % 1.1 % (0.0-2.0); EOSINOPHIL # 0.1 TH/MM3 (0-0.4); HEMATOCRIT 28.7 % (39.0-51.0); HEMO FLAGS DIFF FINAL; HEMOGLOBIN 9.7 GM/DL (13.0-17.0); LYMPH % 25.3 % (9.0-44.0); LYMPHOCYTE # 1.6 TH/MM3 (1.0-4.8); MEAN CELL VOLUME 92.8 FL (80.0-100.0); MEAN CORPUSCULAR HEMOGLOBIN 31.3 PG (27.0-34.0); MEAN CORPUSCULAR HGB CONC 33.7 % (32.0-36.0); MONO % 8.5 % (0.0-8.0); MONOCYTE # 0.5 TH/MM3 (0-0.9); NEUT % 64.1 % (16.0-70.0); PLATELET COUNT 634 TH/MM3 (150-450); RED BLOOD COUNT 3.09 MIL/MM3 (4.50-5.90); RED CELL DISTRIBUTION WIDTH 16.6 % (11.6-17.2); WHITE BLOOD COUNT 6.4 TH/MM3 (4.0-11.0)
[2017-04-20 07:36] LABS: ANION GAP 8 MEQ/L (5-15); BICARBONATE 26.5 MEQ/L (21.0-32.0); BLOOD UREA NITROGEN 21 MG/DL (7-18); CALCIUM 9.1 MG/DL (8.5-10.1); CHLORIDE 96 MEQ/L (98-107); CREATININE 0.51 MG/DL (0.60-1.30); GLOMERULAR FILTRATION RATE 191 ML/MIN (>89); GLUCOSE,RANDOM 115 MG/DL (74-106); POTASSIUM 4.4 MEQ/L (3.5-5.1); SODIUM (NA) 130 MEQ/L (136-145)
[2017-04-20] MEDS: FLUCONAZOLE 100 MG TAB PO (08:19)
[2017-04-20] MEDS: LANSOPRAZOLE SOLUTAB 30 MG TAB NG (08:19)
[2017-04-20] MEDS: GLYCERIN ADULT 2 GM SUPP RECTAL (08:19)
[2017-04-20] MEDS: THIAMINE HCL 100 MG TAB PO (08:19)
[2017-04-20] MEDS: COLLAGENASE OINT 30 GM TUBE TOPICAL (08:20)
[2017-04-20] MEDS: SODIUM CHLORIDE 0.9% FLUSH 10 ML FLUSH IV FLUSH ×4 (08:20)
== END 2017-04-20 19:00 | DRG 853 ==
LOC: N04A 04-16 18:15 → NEPE 13:07 → NEDA 15:48 → HIMW 17:20
PROC: 03HY32Z Insertion of Monitoring Device into Upper Artery, Percutaneous Approach (ICD-10-PCS; principal; 2017-03-15 16:35)
PROC: 5A1955Z Respiratory Ventilation, Greater than 96 Consecutive Hours (ICD-10-PCS; 2017-03-15 16:35)
PROC: 05HN33Z Insertion of Infusion Device into Left Internal Jugular Vein, Percutaneous Approach (ICD-10-PCS; 2017-03-15 16:35)
PROC: 0DH67UZ Insertion of Feeding Device into Stomach, Via Natural or Artificial Opening (ICD-10-PCS; 2017-03-15 16:35)
PROC: 0W9B30Z Drainage of Left Pleural Cavity with Drainage Device, Percutaneous Approach (ICD-10-PCS; 2017-03-15 16:35)
PROC: 0BH18EZ Insertion of Endotracheal Airway into Trachea, Via Natural or Artificial Opening Endoscopic (ICD-10-PCS; 2017-03-15 16:35)
PROC: 02HV33Z Insertion of Infusion Device into Superior Vena Cava, Percutaneous Approach (ICD-10-PCS; 2017-03-15 16:35)
PROC: 0DH63UZ Insertion of Feeding Device into Stomach, Percutaneous Approach (ICD-10-PCS; 2017-03-15 16:35)
PROC: 0DC58ZZ Extirpation of Matter from Esophagus, Via Natural or Artificial Opening Endoscopic (ICD-10-PCS; 2017-03-15 16:35)
PROC: 0DJ08ZZ Inspection of Upper Intestinal Tract, Via Natural or Artificial Opening Endoscopic (ICD-10-PCS; 2017-03-15 16:35)
PROC: 0DN Gastrointestinal System, Release (ICD-10-PCS; 2017-03-15 16:35)
DX: B37.7 Candidal sepsis (principal); J96.01 Acute respiratory failure with hypoxia; R65.21 Severe sepsis with septic shock; K22.3 Perforation of esophagus; G92 Toxic encephalopathy; E43 Unspecified severe protein-calorie malnutrition; J90 Pleural effusion, not elsewhere classified; E11.10 Type 2 diabetes mellitus with ketoacidosis without coma; N17.9 Acute kidney failure, unspecified; J95.811 Postprocedural pneumothorax; R64 Cachexia; M62.82 Rhabdomyolysis; E87.1 Hypo-osmolality and hyponatremia; Z68.1 Body mass index [BMI] 19.9 or less, adult; L89.329 Pressure ulcer of left buttock, unspecified stage; L89.319 Pressure ulcer of right buttock, unspecified stage; B37.49 Other urogenital candidiasis; K22.5 Diverticulum of esophagus, acquired; E83.39 Other disorders of phosphorus metabolism; E87.5 Hyperkalemia; E83.51 Hypocalcemia; H40.9 Unspecified glaucoma; E86.9 Volume depletion, unspecified; K21.9 Gastro-esophageal reflux disease without esophagitis; I10 Essential (primary) hypertension; D64.9 Anemia, unspecified; T81.82XA Emphysema (subcutaneous) resulting from a procedure, initial encounter; E83.42 Hypomagnesemia; F03.90 Unspecified dementia, unspecified severity, without behavioral disturbance, psychotic disturbance, mood disturbance, and anxiety; N40.0 Benign prostatic hyperplasia without lower urinary tract symptoms; F10.10 Alcohol abuse, uncomplicated
CPT/HCPCS: 31500; 31624; 32551; 36556; 36600; 43752; 44500; 49440; 51702; 70450; 71010; 71045; 71250; 71260; 74177; 74230; 76700; 76937; 80048; 80053; 80076; 80202; 80307; 81001; 82010; 82042; 82150; 82550; 82552; 82570; 82805; 82945; 82948; 83036; 83605; 83615; 83690; 83735; 83880; 83986; 84100; 84132; 84155; 84157; 84295; 84300; 84484; 85007; 85014; 85018; 85025; 85027; 85610; 85730; 86403; 87015; 87040; 87070; 87077; 87086; 87102; 87106; 87116; 87186; 87205; 87206; 87493; 87641; 88112; 88305; 89051; 93005; 93306; 94002; 94003; 94640; 94664; 96361; 96374; 96375; 97110-GO; 97110-GP; 97163-GP; 97164-GP; 97166-GO; 97168-GO; 97530-GO; 97530-GP; 99152; 99153; 99291-25

== ENCOUNTER 2017-05-28 19:01 | Inpatient (IN) | payer OTHER, MEDICARE ==
[~2017-05-28] VITALS: Ht 167.6 cm; Wt 40.0 kg
[~2017-05-28 19:01] MED LIST: Albuterol-Ipratropium Neb NEB; CARD240C6 PO; CLON.3T T-DERMAL; LATA0.002 EACH EYE; LEVEMIR SQ; NOVORP2 SQ; OCUF0.3D LEFT EYE; PRED1SUS LEFT EYE; SODI1TAB PO; THIA100 PO
[2017-05-28 19:16] VITALS: BP 142/84; PULSE 72; RESP 17; O2SAT 97
[2017-05-28] MEDS ORDERED: SODIUM CHLORIDE 0.9% FLUSH 10 ML FLUSH IV FLUSH PRN ×2 (19:30→23:00)
--- NOTE | 2017-05-28 19:39 | PD ---
HPI Chief Complaint: Abnormal Results Time Seen by Provider: 19:17 Travel History International Travel<30 days: No Contact w/Intl Traveler<30days: No Traveled to known affect area: No History of Present Illness HPI 77y male presents to the ED via [facility] from [facility] after a fall that occurred just prior to arrival. [facility] states that staff found him seizing on the floor. Says that the evening rounds were done about 30 minutes prior to patient being found on the floor. Note that patient does not have a prior history of seizure activity. Addition, [facility]AC found that the patient's blood sugar was 31 and patient was no longer seizing at their arrival. The promptly administered 25 g D50 and sugar increased to the 300s. Patient does not know how he ended up on the floor, denies pain currently. Says he feels' okay'. Denies fevers, chest pain, shortness of breath. Patient has a history of failure to thrive, brittle diabetes, hypertension with heart failure. PFSH Past Medical History Arthritis: No Asthma: No Autoimmune Disease: No Blood Disorders: No Heart Rhythm Problems: No Cancer: No Cardiovascular Problems: No High Cholesterol: No Chemotherapy: No Congestive Heart Failure: No COPD: No Cerebrovascular Accident: No Dementia: Yes Diabetes: Yes Patient Takes Glucophage: No Diminished Hearing: No Endocrine: No Gastrointestinal Disorders: Yes (trouble swallowing) GERD: Yes Glaucoma: Yes Genitourinary: Yes (BPH) Hepatitis: No Hiatal Hernia: No Hypertension: Yes Immune Disorder: No Kidney Stones: No Musculoskeletal: No Neurologic: No Psychiatric: No Reproductive: No Respiratory: No Myocardial Infarction: No Radiation Therapy: No Seizures: No Sleep Apnea: No Thyroid Disease: No Ulcer: No Past Surgical History AICD: No Arteriovenous Shunt: No Body Medical Devices: N/A Genitourinary Surgery: No Insulin Pump: No Joint Replacement: No Pacemaker: No Other Surgery: No Social History Alcohol Use: Yes (ALCOHOLIC) Tobacco Use: No Substance Use: Yes Allergies-Medications (Allergen,Severity, Reaction): Coded Allergies: No Known Allergies (Verified Allergy, Severe, 05/28/17) Reported Meds & Prescriptions Reported Meds & Active Scripts Active Novolin R Inj (Insulin Human Regular) 1,000 Unit/10 Ml Vial 1 Unit SQ Q6HR 30 Days Cardizem CD 24 HR (Diltiazem CD 24 HR) 240 Mg Caper 240 Mg PO DAILY 30 Days Gnp Vitamin B-1 (Thiamine HCl) 100 Mg Tab 100 Mg PO DAILY 30 Days Levemir Inj (Insulin Detemir) 1,000 unit/ 10 ML Vial 5 Units SQ HS 30 Days Do not mix with any other Insulin. Sodium Chloride 1 Gram Tab 1 Gm PO BID 30 Days [id number] 168 HR Patch (Clonidine) 0.3 Mg/24 Hr Patch 1 Patch T-DERMAL Q7D 30 Days [Albuterol-Ipratropium Neb] 1 AMPULE Nebu 1 Ampule NEB Q6HR NEB PRN 5 Days Reported Latanoprost Opth Drops (Latanoprost) 0.005% Drops 1 Drop EACH EYE HS Refrigerate until opened. Ocuflox Opth Drops (Ofloxacin Opth Drops) 0.3 % Drops 1 Drop LEFT EYE Q6HR Pred Forte Opth 1% (Prednisolone Acetate Opth 1%) 1% Susp 1 Drop LEFT EYE QID Review of Systems Except as stated in HPI: all other systems reviewed are Neg Physical Exam Narrative GENERAL: Well-developed, very thin in no apparent distress SKIN: Focused skin assessment warm/dry. HEAD: Atraumatic. Normocephalic. EYES: Pupils equal and round. No scleral icterus. No injection or drainage. No nystagmus, EOMI ENT: No nasal bleeding or discharge. Mucous membranes pink and moist. NECK: Trachea midline. No JVD. In soft collar composed of sheets (unable to fit c collars properly per EVAC) CARDIOVASCULAR: Regular rate and rhythm. No murmur appreciated. RESPIRATORY: No accessory muscle use. Clear to auscultation. Breath sounds equal bilaterally. GASTROINTESTINAL: Abdomen soft, non-tender, nondistended. Hepatic and splenic margins not palpable. MUSCULOSKELETAL: No obvious deformities. No clubbing. No cyanosis. No edema. Pelvis stable, no crepitus BACK: No CVA tenderness. No rash. No point tenderness on palpation of the spine. NEUROLOGICAL: Awake and alert. No obvious cranial nerve deficits. Motor grossly within normal limits. Normal speech. Grade 5 out of 5 upper and lower extremities. PSYCHIATRIC: Appropriate mood and affect; insight and judgment normal. Data Data Last Documented VS Vital Signs Date Time Temp Pulse Resp B/P (MAP) Pulse Ox O2 Delivery O2 Flow Rate FiO2 05/28/17 21:22 72 16 132/73 (92) 100 Room Air 05/28/17 20:10 98.1 Orders Orders Complete Blood Count With Diff (05/28/17:18) Comprehensive Metabolic Panel (05/28/17:18) Magnesium (Mg) (05/28/17 19:18) Beta Hydroxybutyrate (Acetone) (05/28/17:18) Lactic Acid (05/28/17:18) Urinalysis - C+S If Indicated (05/28/17:18) Blood Culture (05/28/17:18) Chest, Single Ap (05/28/17:18) Blood Glucose (05/28/17:18) Blood Glucose (05/28/17 19:48) Ecg Monitoring (05/28/17:18) Iv Access Insert/Monitor (05/28/17:18) Oximetry (05/28/17:18) Troponin I (05/28/17:18) Lipase (05/28/17:18) Ammonia (05/28/17:18) Ct Brain W/O Iv Contrast(Rout) (05/28/17 19:18) Sodium Chloride 0.9% Flush (Ns Flush) (05/28/17 19:30) Ct Cerv Spine W/O Contrast (05/28/17:18) Sodium Chlor 0.9% 250 Ml Inj (Ns 250 Ml (05/28/17 20:30) Piperacil-Tazo 3.375 Gm Premix (Zosyn 3. (05/28/17 21:00) Vancomycin Inj (Vancomycin Inj) (05/28/17 21:00) Metronidazole 500 Mg Inj (Flagyl 500 Mg (05/28/17 21:00) Urine Culture (05/28/17 20:05) Electrocardiogram (05/28/17 20:34) Ckmb (Isoenzyme) Profile (05/28/17 22:00) Sodium Chlor 0.9% 250 Ml Inj (Ns 250 Ml (05/28/17 22:15) Admit Order (Ed Use Only) (05/28/17 22:24) Labs Laboratory Tests Test 05/28/17 19:20 05/28/17 19:55 05/28/17 20:05 05/28/17 22:00 White Blood Count 6.2 TH/MM3 Red Blood Count 4.40 MIL/MM3 Hemoglobin 13.0 GM/DL Hematocrit 39.8 % Mean Corpuscular Volume 90.4 FL Mean Corpuscular Hemoglobin 29.6 PG Mean Corpuscular Hemoglobin Concent 32.7 % Red Cell Distribution Width 17.0 % Platelet Count 415 TH/MM3 Mean Platelet Volume 8.5 FL Neutrophils (%) (Auto) 67.9 % Lymphocytes (%) (Auto) 28.6 % Monocytes (%) (Auto) 2.7 % Eosinophils (%) (Auto) 0.2 % Basophils (%) (Auto) 0.6 % Neutrophils # (Auto) 4.2 TH/MM3 Lymphocytes # (Auto) 1.8 TH/MM3 Monocytes # (Auto) 0.2 TH/MM3 Eosinophils # (Auto) 0.0 TH/MM3 Basophils # (Auto) 0.0 TH/MM3 CBC Comment DIFF FINAL Differential Comment Blood Urea Nitrogen 21 MG/DL Creatinine 0.73 MG/DL Random Glucose 161 MG/DL Total Protein 8.6 GM/DL Albumin 3.3 GM/DL Calcium Level 9.7 MG/DL Magnesium Level 1.6 MG/DL Alkaline Phosphatase 110 U/L Aspartate Amino Transf (AST/SGOT) 27 U/L Alanine Aminotransferase (ALT/SGPT) 24 U/L Total Bilirubin 0.2 MG/DL Sodium Level 131 MEQ/L Potassium Level 5.2 MEQ/L Chloride Level 95 MEQ/L Carbon Dioxide Level 22.8 MEQ/L Anion Gap 13 MEQ/L Estimat Glomerular Filtration Rate 126 ML/MIN Ammonia 20 MCMOL/L Troponin I LESS THAN 0.02 NG/ML Lipase 196 U/L B-Hydroxybutyrate 0.19 MMOL/L Lactic Acid Level 4.6 mmol/L Urine Color YELLOW Urine Turbidity CLEAR Urine pH 7.5 Urine Specific [place] 1.013 Urine Protein 30 mg/dL Urine Glucose (UA) TRACE mg/dL Urine Ketones NEG mg/dL Urine Occult Blood NEG Urine Nitrite NEG Urine Bilirubin NEG Urine Urobilinogen LESS THAN 2.0 MG/DL Urine Leukocyte Esterase LARGE Urine RBC 2 /hpf Urine WBC 83 /hpf Urine Squamous Epithelial Cells <1 /hpf Urine Bacteria FEW /hpf Urine Hyaline Casts 1 /lpf Microscopic Urinalysis Comment CULTURE INDICATED Total Creatine Kinase 67 U/L [facility] Medical Decision Making Medical Screen Exam Complete: Yes Emergency Medical Condition: Yes Differential Diagnosis Hypoglycemia, seizure activity, metabolic disorder Narrative Course 77-year-old male presents emergency department via [facility] from [facility] after being found on the floor of his room this afternoon. Patient was apparently displaying seizure activity upon assessment of staff and they probably called [facility] for evaluation and transport to the hospital. EVAC states her his blood sugar was 31 upon arrival and was lethargic upon evaluation. D50 was administered by [facility] which improved his mental status and blood sugar. Pt placed on backboard and C collar by [facility]. Upon arrival patient had no complaints. Denied pain. Labs and imaging studies ordered. Vital sign stable. Last Impressions Head CT 05/28/171917 Signed Impressions: Service Date/Time: Sunday, May 28, 2017 19:39 - CONCLUSION: 1. No acute intracranial abnormalities. Cortical volume loss. Partial opacification of the mastoid air cells bilaterally most characteristic of mastoiditis. Retention cyst left ethmoids. Tripp Noel MD Chest X-Ray 05/28/171917 Signed Impressions: Service Date/Time: Sunday, May 28, 2017 19:35 - CONCLUSION: 1. Linear metallic appearing radiopaque foreign body in the upper esophagus. 2. Patchy airspace disease in the right lung most characteristic of pneumonia or aspiration. Tripp Noel MD Cervical Spine CT 05/28/171917 Signed Impressions: Service Date/Time: Sunday, May 28, 2017 19:39 - CONCLUSION: 1. There is a linear radiopaque metallic appearing foreign body within the proximal esophagus measuring about 16 mm in length. 2. No acute fracture or spondylolisthesis. The prevertebral soft tissue swelling. No significant bony canal stenosis. Tripp Noel MD Zosyn, Vancomycin, and Flagyl initiated in the ED. Total of 500c NS bolus administered. CBC unremarkable, actually improved anemia from his visit in March. Chronic hyponatremia, mild hyperkalemia at 5.2. Lactic 4.6. Ammonia 20. Negative cardiac enzymes x1. I had a discussion with the family regarding this patient. They state that he was at [facility] for rehab after an extended hospital stay in February. Patient was apparently admitted for "blood sugar problems" and a "collapsed lung ". States that he was supposed to be discharge this Monday from [facility] but patient was insistent on staying in longer. During the hospital visit in February 2017, patient apparently had a perforated esophagus after an EGD which required an ICU admission for greater than 30 days. Currently, patient has a G- tube and is only source of nutrition. Patient is unable to tolerate any p.o. intake, according to family. Patient apparently has been able to walk with a walker and assistance in his rehab facility. I spoke with Dr. Brenner states that he would accept this patient. Patient will remain n.p.o. patient is a full code. Sepsis Criteria Sepsis Criteria (SIRS+source): Infect source susp/known Septic Shock Criteria: Lactic acid >=4 Diagnosis Primary Impression: Hypoglycemia Additional Impressions: Pneumonia Qualified Codes: J18.9 - Pneumonia, unspecified organism Elevated lactic acid level Admitting Information Admitting Physician Requests: Admit Condition: Stable So [place] May 28, 2017 19:39
--- NOTE | 2017-05-28 19:59 | RADRPT ---
EXAM DATE/TIME: 05/28/2017 19:39 [facility] COMPARISON: No previous studies available for comparison. INDICATIONS : Found on floor. RADIATION DOSE: 56.35 CTDIvol (mGy) MEDICAL HISTORY : Dementia. Hypertension. Diabetes mellitus type 2.Renal failure SURGICAL HISTORY : None. ENCOUNTER: Initial ACUITY: 1 day PAIN SCALE: 0/10 LOCATION: cranial TECHNIQUE: Multiple contiguous axial images were obtained of the head. Using automated exposure control and adj ustment of the mA and/or kV according to patient size, radiation dose was kept as low as reasonably a chievable to obtain optimal diagnostic quality images. DICOM format image data is available electro nically for review and comparison. FINDINGS: CEREBRUM: The ventricles are normal for age. No evidence of midline shift, mass lesion, hemorrhage or acute in farction. No extra-axial fluid collections are seen. POSTERIOR FOSSA: The cerebellum and brainstem are intact. The 4th ventricle is midline. The cerebellopontine angle i s unremarkable. EXTRACRANIAL: The visualized portion of the orbits is intact. SKULL: The calvaria is intact. No evidence of skull fracture. CONCLUSION: 1. No acute intracranial abnormalities. Cortical volume loss. Partial opacification of the mastoid ai r cells bilaterally most characteristic of mastoiditis. Retention cyst left ethmoids. Tripp Noel MD on May 28, 2017 at 19:56 Board Certified Radiologist. This report was verified electronically.
--- NOTE | 2017-05-28 20:04 | RADRPT ---
EXAM DATE/TIME: 05/28/2017 19:39 [facility] COMPARISON: No previous studies available for comparison. INDICATIONS : Found on floor. Neck pain. RADIATION DOSE: 35.01 CTDIvol (mGy) MEDICAL HISTORY : Dementia. Hypertension. Diabetes mellitus type 2.Renal Failure SURGICAL HISTORY : None. ENCOUNTER: Initial ACUITY: 1 day PAIN SCALE: 7/10 LOCATION: neck TECHNIQUE: Volumetric scanning of the cervical spine was performed. Multiplanar reconstructions in the sagittal, coronal and oblique axial planes were performed. Using automated exposure control and adjustment o f the mA and/or kV according to patient size, radiation dose was kept as low as reasonably achievable to obtain optimal diagnostic quality images. DICOM format image data is available electronically f or review and comparison. FINDINGS: VERTEBRAE: Normal vertebral body height. ALIGNMENT: No evidence of subluxation. C2-C3: The bony spinal canal is normal in size. No evidence of disc bulge or herniation. The neural forami na are bilaterally patent. C3-C4: The bony spinal canal is normal in size. No evidence of disc bulge or herniation. The neural forami na are bilaterally patent. C4-C5: The bony spinal canal is normal in size. No evidence of disc bulge or herniation. The neural forami na are bilaterally patent. C5-C6: The bony spinal canal is normal in size. No evidence of disc bulge or herniation. The neural forami na are bilaterally patent. C6-C7: The bony spinal canal is normal in size. No evidence of disc bulge or herniation. The neural forami na are bilaterally patent. C7-T1: The bony spinal canal is normal in size. No evidence of disc bulge or herniation. The neural forami na are bilaterally patent. CONCLUSION: 1. There is a linear radiopaque metallic appearing foreign body within the proximal esophagus measuri ng about 16 mm in length. 2. No acute fracture or spondylolisthesis. The prevertebral soft tissue swelling. No significant bony canal stenosis. Tripp Noel MD on May 28, 2017 at 19:57 Board Certified Radiologist. This report was verified electronically.
[2017-05-28 20:06] LABS: AUTOMATED NEUTROPHIL # 4.2 TH/MM3 (1.8-7.7); BASOPHIL % 0.6 % (0.0-2.0); EOSINOPHIL % 0.2 % (0.0-4.0); HEMATOCRIT 39.8 % (39.0-51.0); LYMPH % 28.6 % (9.0-44.0); LYMPHOCYTE # 1.8 TH/MM3 (1.0-4.8); MEAN CELL VOLUME 90.4 FL (80.0-100.0); MEAN CORPUSCULAR HEMOGLOBIN 29.6 PG (27.0-34.0); MEAN CORPUSCULAR HGB CONC 32.7 % (32.0-36.0); MEAN PLATELET VOLUME 8.5 FL (7.0-11.0); MONO % 2.7 % (0.0-8.0); MONOCYTE # 0.2 TH/MM3 (0-0.9); NEUT % 67.9 % (16.0-70.0); PLATELET COUNT 415 TH/MM3 (150-450); WHITE BLOOD COUNT 6.2 TH/MM3 (4.0-11.0)
[2017-05-28 20:10] VITALS: TEMP 98.1; O2SAT 97
--- NOTE | 2017-05-28 20:28 | PD ---
Physical Exam Narrative General: The patient is a well-developed, cachectic appearing male, in no acute distress. Head and Neck exam: Head is normocephalic atraumatic. Eyes: EOMI, pupils are equal round and reactive to light. Nose: Midline septum with pink mucous membranes Mouth: Dentition unremarkable. Moist mucus membranes. Posterior oropharynx is not erythematous. No tonsillar hypertrophy. Uvula midline. Airway patent. Neck: No palpable lymphadenopathy. No nuchal rigidity. No thyromegaly. Cardiovascular: Regular rate and rhythm without murmurs, gallops, or rubs. No pulse deficit to the extremities on simultaneous auscultation and palpation of his radial artery. Lungs: Clear to auscultation bilaterally. No wheezes, rhonchi, or rales. Abdomen: Soft, without tenderness to palpation in all 4 quadrants of the abdomen. No guarding, rebound, or rigidity. N normal bowel sounds are audible. No tenderness on palpation of McBurney's point. Negative Trevizo sign. The patient has a feeding tube in place in the left upper quadrant of the abdomen that appears to be in good repair without any signs of surrounding erythema or drainage Extremities: No clubbing, cyanosis, or edema. 2+ pulses in all 4 extremities. No calf tenderness on palpation. No extremity tenderness on palpation on palpation for range of motion. No crepitus on palpation. The patient has an intraosseous access in place in the right anterior tibia with a bandage in place. Neurologic Exam: Cranial nerves 2-12 were intact on exam. Strength is 5/5 in all 4 extremities. No sensory deficits noted. Skin Exam: No rash noted. Intact skin that is warm and dry. Data Data Last Documented VS Vital Signs Date Time Temp Pulse Resp B/P (MAP) Pulse Ox O2 Delivery O2 Flow Rate FiO2 05/28/17 21:22 72 16 132/73 (92) 100 Room Air 05/28/17 20:10 98.1 Orders Orders Complete Blood Count With Diff (05/28/17 19:18) Comprehensive Metabolic Panel (05/28/17 19:18) Magnesium (Mg) (05/28/17 19:18) Beta Hydroxybutyrate (Acetone) (05/28/17 19:18) Lactic Acid (05/28/17 19:18) Urinalysis - C+S If Indicated (05/28/17 19:18) Blood Culture (05/28/17 19:18) Chest, Single Ap (05/28/17 19:18) Blood Glucose (05/28/17 19:18) Blood Glucose (05/28/17 19:48) Ecg Monitoring (05/28/17 19:18) Iv Access Insert/Monitor (05/28/17 19:18) Oximetry (05/28/17 19:18) Troponin I (05/28/17 19:18) Lipase (05/28/17 19:18) Ammonia (05/28/17 19:18) Ct Brain W/O Iv Contrast(Rout) (05/28/17 19:18) Sodium Chloride 0.9% Flush (Ns Flush) (05/28/17 19:30) Ct Cerv Spine W/O Contrast (05/28/17 19:18) Sodium Chlor 0.9% 250 Ml Inj (Ns 250 Ml (05/28/17 20:30) Piperacil-Tazo 3.375 Gm Premix (Zosyn 3. (05/28/17 21:00) Vancomycin Inj (Vancomycin Inj) (05/28/17 21:00) Metronidazole 500 Mg Inj (Flagyl 500 Mg (05/28/17 21:00) Urine Culture (05/28/17 20:05) Electrocardiogram (05/28/17 20:34) Ckmb (Isoenzyme) Profile (05/28/17 22:00) Sodium Chlor 0.9% 250 Ml Inj (Ns 250 Ml (05/28/17 22:15) Admit Order (Ed Use Only) (05/28/17 22:24) Labs Laboratory Tests Test 05/28/17 19:20 05/28/17 19:55 05/28/17 20:05 05/28/17 22:00 White Blood Count 6.2 TH/MM3 Red Blood Count 4.40 MIL/MM3 Hemoglobin 13.0 GM/DL Hematocrit 39.8 % Mean Corpuscular Volume 90.4 FL Mean Corpuscular Hemoglobin 29.6 PG Mean Corpuscular Hemoglobin Concent 32.7 % Red Cell Distribution Width 17.0 % Platelet Count 415 TH/MM3 Mean Platelet Volume 8.5 FL Neutrophils (%) (Auto) 67.9 % Lymphocytes (%) (Auto) 28.6 % Monocytes (%) (Auto) 2.7 % Eosinophils (%) (Auto) 0.2 % Basophils (%) (Auto) 0.6 % Neutrophils # (Auto) 4.2 TH/MM3 Lymphocytes # (Auto) 1.8 TH/MM3 Monocytes # (Auto) 0.2 TH/MM3 Eosinophils # (Auto) 0.0 TH/MM3 Basophils # (Auto) 0.0 TH/MM3 CBC Comment DIFF FINAL Differential Comment Blood Urea Nitrogen 21 MG/DL Creatinine 0.73 MG/DL Random Glucose 161 MG/DL Total Protein 8.6 GM/DL Albumin 3.3 GM/DL Calcium Level 9.7 MG/DL Magnesium Level 1.6 MG/DL Alkaline Phosphatase 110 U/L Aspartate Amino Transf (AST/SGOT) 27 U/L Alanine Aminotransferase (ALT/SGPT) 24 U/L Total Bilirubin 0.2 MG/DL Sodium Level 131 MEQ/L Potassium Level 5.2 MEQ/L Chloride Level 95 MEQ/L Carbon Dioxide Level 22.8 MEQ/L Anion Gap 13 MEQ/L Estimat Glomerular Filtration Rate 126 ML/MIN Ammonia 20 MCMOL/L Troponin I LESS THAN 0.02 NG/ML Lipase 196 U/L B-Hydroxybutyrate 0.19 MMOL/L Lactic Acid Level 4.6 mmol/L Urine Color YELLOW Urine Turbidity CLEAR Urine pH 7.5 Urine Specific [place] 1.013 Urine Protein 30 mg/dL Urine Glucose (UA) TRACE mg/dL Urine Ketones NEG mg/dL Urine Occult Blood NEG Urine Nitrite NEG Urine Bilirubin NEG Urine Urobilinogen LESS THAN 2.0 MG/DL Urine Leukocyte Esterase LARGE Urine RBC 2 /hpf Urine WBC 83 /hpf Urine Squamous Epithelial Cells <1 /hpf Urine Bacteria FEW /hpf Urine Hyaline Casts 1 /lpf Microscopic Urinalysis Comment CULTURE INDICATED Total Creatine Kinase 67 U/L [facility] Medical Record Reviewed: Yes Supervised Visit with NURIS: Yes Interpretation(s) Last Impressions Head CT 05/28/171917 Signed Impressions: Service Date/Time: Sunday, May 28, 2017 19:39 - CONCLUSION: 1. No acute intracranial abnormalities. Cortical volume loss. Partial opacification of the mastoid air cells bilaterally most characteristic of mastoiditis. Retention cyst left ethmoids. Tripp Noel MD Chest X-Ray 05/28/171917 Signed Impressions: Service Date/Time: Sunday, May 28, 2017 19:35 - CONCLUSION: 1. Linear metallic appearing radiopaque foreign body in the upper esophagus. 2. Patchy airspace disease in the right lung most characteristic of pneumonia or aspiration. Tripp Noel MD Cervical Spine CT 05/28/171917 Signed Impressions: Service Date/Time: Sunday, May 28, 2017 19:39 - CONCLUSION: 1. There is a linear radiopaque metallic appearing foreign body within the proximal esophagus measuring about 16 mm in length. 2. No acute fracture or spondylolisthesis. The prevertebral soft tissue swelling. No significant bony canal stenosis. Tripp Noel MD Narrative Course I, Dr. Gaviria, have reviewed the advance practice practitioner's documentation and am in agreement, met with the patient face to face, made the diagnosis, and the medical decision making was done by me. The patient was initially evaluated by So. Please see their complete history and physical. *My assessment and Findings: The patient presents with a history of being found on the floor at his [facility] prior to arrival. The patient was noted to be altered with a low blood sugar. The patient was noted to have what appeared to be seizure activity with no prior history of seizure according to his family at the bedside. The patient is exclusively tube fed with a G- tube in place. The patient does have a history of diabetes with erratic blood sugars. They are unaware of any recent changes in his medication regimen. During the course of the patient's emergency department visit, the patient's history, examination, and differential diagnosis were reviewed with the patient. The patient was placed on a quality assurance monitor chassis with oximetry and frequent blood pressure monitoring. The patient had IV access obtained and blood work sent for analysis. The patient had an EKG done on arrival that shows a sinus rhythm with a heart rate of 80, patient's baseline on his EKG is tremulous in spite of multiple attempts at repositioning which could be affecting interpretation of his EKG, however no obvious ST segment elevation is noted. The patient was initially provided an normal saline 250 mL bolus which was repeated 1. The patient's laboratory studies were reviewed and remarkable for a CBC that is unremarkable, CMP is remarkable for sodium of 131, potassium 5.2, chloride 95, BUN 21, glucose 161, lactic acid 4.6, ammonia level 20, CPK 67, troponin I less than 0.02, lipase 196, beta hydroxybutyrate is 0.19, urinalysis shows 83 WBCs, culture indicated. Radiology studies were reviewed and remarkable for chest x-ray that shows patchy airspace disease in the right lung most consistent with pneumonia or aspiration, linear metallic appearing radiopaque foreign body in the upper esophagus. The patient was started on broad-spectrum antibiotic for healthcare associated pneumonia with possible aspiration component. The patient will be admitted to the hospital for continued evaluation and treatment. The patient's results were discussed with the patient, including the plan of care. I explained that further testing and/ or monitoring is indicated based on the patient's history, examination, and/ or laboratory findings. Therefore, I recommended admission for additional evaluation. The patient expressed understanding and was agreeable with this plan. The patient was admitted to the hospital in guarded condition and sent to a bed under the care of the [facility] service. Diagnosis Primary Impression: Hypoglycemia Additional Impression: Pneumonia Qualified Codes: J18.9 - Pneumonia, unspecified organism Admitting Information Admitting Physician Requests: Admit Condition: Stable Danni Gaviria MD May 28, 2017 20:28
--- NOTE | 2017-05-28 20:28 | RADRPT ---
EXAM DATE/TIME: 05/28/2017 19:35 [facility] COMPARISON: No previous studies available for comparison. INDICATIONS : Fall today. Short of breath. MEDICAL HISTORY : Hypertension. Diabetes mellitus type II. Arthritis. dementia SURGICAL HISTORY : None. ENCOUNTER: Initial ACUITY: 1 day PAIN SCORE: 0/10 LOCATION: Bilateral chest FINDINGS: There is patchy airspace disease in the right lung. Differential diagnosis includes pneumonia and asp iration. Minimal left basilar opacity. Radiopaque foreign body in the upper chest is within the proxi mal esophagus as seen on recent cervical spine CT. CONCLUSION: 1. Linear metallic appearing radiopaque foreign body in the upper esophagus. 2. Patchy airspace disease in the right lung most characteristic of pneumonia or aspiration. Tripp Noel MD on May 28, 2017 at 20:23 Board Certified Radiologist. This report was verified electronically.
[2017-05-28] MEDS ORDERED: SODIUM CHLOR 0.9% 250 ML INJ 250 ML IV ONE ×2 (20:30→22:15)
[2017-05-28] MEDS ORDERED: PIPERACIL-TAZO 3.375 GM PREMIX 50 ML IV ONE (21:00)
[2017-05-28] MEDS ORDERED: metroNIDAZOLE 500 MG INJ 100 ML IV ONE (21:00)
[2017-05-28] MEDS ORDERED: VANCOMYCIN INJ 1,000 MG in SODIUM CHLOR 0.9% 250 ML INJ 250 ML IV ONE (21:00)
[2017-05-28 21:11] LABS: BACTERIA, URINE FEW /hpf; BILIRUBIN, URINE NEG (NEG); BLOOD, URINE NEG (NEG); GLUCOSE,URINE TRACE mg/dL (NEG); HYALINE CAST, URINE 1 /lpf (RARE); KETONE, URINE NEG (NEG); NITRITE,URINE NEG (NEG); PH, URINE 7.5 (5.0-8.5); SQUAMOUS EPITHELIAL CELL URINE <1 /hpf (0-5); URINE COLOR YELLOW (YELLW/STRAW); URINE LEUKOCYTE ESTERASE LARGE (NEG)
[2017-05-28 21:22] VITALS: BP 132/73; PULSE 72; RESP 16; O2SAT 100
[2017-05-28 21:22] LABS: ALBUMIN 3.3 GM/DL (3.4-5.0); ALT (GPT) 24 U/L (12-78); BICARBONATE 22.8 MEQ/L (21.0-32.0); BLOOD UREA NITROGEN 21 MG/DL (7-18); CALCIUM 9.7 MG/DL (8.5-10.1); CHLORIDE 95 MEQ/L (98-107); CREATININE 0.73 MG/DL (0.60-1.30); GLOMERULAR FILTRATION RATE 126 ML/MIN (>89); GLUCOSE,RANDOM 161 MG/DL (74-106); SODIUM (NA) 131 MEQ/L (136-145)
[2017-05-28 21:33] LABS: ALKALINE PHOSPHATASE 110 U/L (45-117); AST (GOT) 27 U/L (15-37); MAGNESIUM 1.6 MG/DL (1.5-2.5); TOTAL BILIRUBIN ADULT 0.2 MG/DL (0.2-1.0); TOTAL PROTEIN 8.6 GM/DL (6.4-8.2); TROPONIN I LESS THAN 0.02 NG/ML (0.02-0.05)
[2017-05-28] MEDS ORDERED: MAGNESIUM HYDROXIDE SUSP 30 ML CUP PO PRN (23:00)
[2017-05-28] MEDS ORDERED: RESP: ALBUTEROL 2.5 MG/IPRATROPIUM 0.5 MG NEB (PRN) NEB (23:00)
[2017-05-28] MEDS ORDERED: NALOXONE HCL 0.4 MG/ML AMP IV PUSH PRN (23:00)
[2017-05-28] MEDS ORDERED: LACTULOSE SYRUP 20 GM/30 ML CUP PO PRN (23:00)
[2017-05-28] MEDS ORDERED: SENNOSIDES 8.6 MG TAB PO PRN (23:00)
[2017-05-28] MEDS ORDERED: BISACODYL 10 MG SUPP RECTAL PRN (23:00)
[2017-05-28] MEDS ORDERED: cloNIDine HCL 0.3 MG/24 HR PATCH T-DERMAL SCH (23:00)
[2017-05-29] VITALS (11 sets, daily range): BP systolic 88–137; BP diastolic 52–76; PULSE 89–104; RESP 16–19; TEMP 97.1–98.9; O2SAT 93–100
[2017-05-29] MEDS: ENOXAPARIN SODIUM 30 MG/0.3 ML SYRINGE SQ SCH ×2 (00:52→22:50)
[2017-05-29] MEDS: OFLOXACIN 0.3% OPTH SOLN 5 ML BTL LEFT EYE SCH ×5 (02:17→22:42)
[2017-05-29] MEDS: INSULIN HUMAN REGULAR 1,000 UNITS/10 ML VIAL SQ SCH ×5 (05:45→22:43)
[2017-05-29 07:08] LABS: AUTOMATED NEUTROPHIL # 6.3 TH/MM3 (1.8-7.7); BASOPHIL % 0.5 % (0.0-2.0); EOSINOPHIL % 0.3 % (0.0-4.0); HEMATOCRIT 30.3 % (39.0-51.0); HEMOGLOBIN 10.2 GM/DL (13.0-17.0); LYMPH % 19.9 % (9.0-44.0); LYMPHOCYTE # 1.7 TH/MM3 (1.0-4.8); MEAN CELL VOLUME 89.2 FL (80.0-100.0); MEAN CORPUSCULAR HEMOGLOBIN 30.1 PG (27.0-34.0); MEAN CORPUSCULAR HGB CONC 33.7 % (32.0-36.0); MEAN PLATELET VOLUME 8.9 FL (7.0-11.0); MONOCYTE # 0.4 TH/MM3 (0-0.9); NEUT % 74.3 % (16.0-70.0); PLATELET COUNT 362 TH/MM3 (150-450); RED CELL DISTRIBUTION WIDTH 16.3 % (11.6-17.2); WHITE BLOOD COUNT 8.5 TH/MM3 (4.0-11.0)
[2017-05-29 07:39] LABS: ALBUMIN 2.8 GM/DL (3.4-5.0); ALKALINE PHOSPHATASE 89 U/L (45-117); ALT (GPT) 18 U/L (12-78); AST (GOT) 18 U/L (15-37); BICARBONATE 23.6 MEQ/L (21.0-32.0); BLOOD UREA NITROGEN 16 MG/DL (7-18); CALCIUM 9.7 MG/DL (8.5-10.1); CHLORIDE 98 MEQ/L (98-107); CREATININE 0.59 MG/DL (0.60-1.30); GLOMERULAR FILTRATION RATE 161 ML/MIN (>89); GLUCOSE,RANDOM 87 MG/DL (74-106); SODIUM (NA) 134 MEQ/L (136-145); TOTAL BILIRUBIN ADULT 0.3 MG/DL (0.2-1.0); TOTAL PROTEIN 7.4 GM/DL (6.4-8.2)
--- NOTE | 2017-05-29 08:44 | HHI.HP ---
History of Present Illness Service Family medicine Primary Care Physician Frank Brenner, DO Admission Diagnosis PNA, elevated lactic level Diagnoses: (1) Pneumonia Diagnosis: Principal (2) Hypoglycemia (3) Elevated lactic acid level (4) History of hypertension History of Present Illness 77y male [facility] He has with Blood sugar in 30's, and responded to D50 given in ER. He has history of DM, HTN, HF, GERD. He is NPO after perforated esophagus from EGD done in February, has Gtube. His lactic acid elevated 4.3, CXR shows RLL PNA. Review of Systems Constitutional: COMPLAINS OF: Fatigue Gastrointestinal: COMPLAINS OF: Difficulty Swallowing Past Family Social History Allergies: Coded Allergies: No Known Allergies (Verified Allergy, Severe, 05/28/17) Past Medical History DM HTN HF Hyponatremia Perforated Esophagus Reported Medications Reported Latanoprost Opth Drops (Latanoprost) 0.005% Drops 1 Drop EACH EYE HS Refrigerate until opened. Ocuflox Opth Drops (Ofloxacin Opth Drops) 0.3 % Drops 1 Drop LEFT EYE Q6HR Pred Forte Opth 1% (Prednisolone Acetate Opth 1%) 1% Susp 1 Drop LEFT EYE QID Active Ordered Medications Current Medications Medications (Trade) Dose Ordered Sig/Emma Route Start Time Stop Time Status Last Admin (NS Flush) 2 ml UNSCH PRN IV FLUSH 05/28/17 23:00 (NS Flush) 2 ml BID IV FLUSH 05/29/17 09:00 (Lovenox Inj) 30 mg Q24H SQ 05/28/17 23:00 05/29/17 00:52 (Narcan Inj) 0.4 mg UNSCH PRN IV PUSH 05/28/17 23:00 (Brenda-Colace) 1 tab BID PO 05/29/17 09:00 (Milk Of Magnesia Liq) 30 ml Q12H PRN PO 05/28/17 23:00 (Senokot) 17.2 mg Q12H PRN PO 05/28/17 23:00 (Dulcolax Supp) 10 mg DAILY PRN RECTAL 05/28/17 23:00 (Lactulose Liq) 30 ml DAILY PRN PO 05/28/17 23:00 (Catapres-Tts 0.3 Mg Patch.7d) 1 patch Q7D T-DERMAL 05/28/17 23:00 (Cardizem Cd) 240 mg DAILY PO 05/29/17 09:00 (Levemir Inj) 5 units HS SQ 05/29/17 21:00 (NovoLIN R INJ) 1 units Q6HR SQ 05/29/17 00:00 05/29/17 05:45 (Xalatan 0.005% Opth Soln) 1 drop HS EACH EYE 05/29/17 21:00 (Ocuflox 0.3% Opth Soln) 1 drop Q6HR LEFT EYE 05/29/17 00:00 05/29/17 05:45 (Pred Forte 1% Opth Susp) 1 drop QID LEFT EYE 05/29/17 09:00 (Sodium Chloride) 1 gm BID PO 05/29/17 09:00 (Vitamin B1) 100 mg DAILY PO 05/29/17 09:00 (Duoneb Neb) 1 ampule Q6HR NEB PRN NEB 05/28/17 23:00 Social History + ETOH Denies Smoking or recreational drugs Physical Exam Vital Signs Vital Signs Date Time Temp Pulse Resp B/P (MAP) Pulse Ox O2 Delivery O2 Flow Rate FiO2 05/29/17 08:31 103/61 (75) 05/29/17 08:00 98.4 97 16 88/52 (64) 100 05/29/17 04:02 97 05/29/17 04:00 97.1 104 18 125/72 (89) 93 05/29/17 01:58 97.9 101 18 130/75 (93) 99 05/29/17 00:55 89 16 137/76 (96) 99 Room Air 05/28/17 21:22 72 16 132/73 (92) 100 Room Air 05/28/17 20:10 98.1 05/28/17 20:10 97 Room Air 05/28/17 19:16 72 17 142/84 (103) 97 Room Air Physical Exam GENERAL: Thin elderly male in no apparent distress. SKIN: No rashes, ecchymoses or lesions. Cool and dry. HEAD: Atraumatic. Normocephalic. No temporal or scalp tenderness. EYES: Pupils equal round and reactive. Extraocular motions intact. No scleral icterus. No injection or drainage. ENT: Nose without bleeding, purulent drainage or septal hematoma. Throat without erythema, tonsillar hypertrophy or exudate. Uvula midline. Airway patent. NECK: Trachea midline. No JVD or lymphadenopathy. Supple, nontender, no meningeal signs. CARDIOVASCULAR: Regular rate and rhythm without murmurs, gallops, or rubs. RESPIRATORY: Breath sounds equal bilaterally. No wheezes, rales, or rhonchi. GASTROINTESTINAL: Abdomen soft, non-tender, nondistended, Gtube in place MUSCULOSKELETAL: Extremities without clubbing, cyanosis, or edema. No joint tenderness, effusion, or edema noted. No calf tenderness. Negative Homans sign bilaterally. NEUROLOGICAL: Awake and alert. Cranial nerves II through XII intact. Normal speech. Laboratory Laboratory Tests Test 05/28/17 19:20 05/28/17 19:55 05/28/17 20:05 05/28/17 22:00 White Blood Count 6.2 Red Blood Count 4.40 Hemoglobin 13.0 Hematocrit 39.8 Mean Corpuscular Volume 90.4 Mean Corpuscular Hemoglobin 29.6 Mean Corpuscular Hemoglobin Concent 32.7 Red Cell Distribution Width 17.0 Platelet Count 415 Mean Platelet Volume 8.5 Neutrophils (%) (Auto) 67.9 Lymphocytes (%) (Auto) 28.6 Monocytes (%) (Auto) 2.7 Eosinophils (%) (Auto) 0.2 Basophils (%) (Auto) 0.6 Neutrophils # (Auto) 4.2 Lymphocytes # (Auto) 1.8 Monocytes # (Auto) 0.2 Eosinophils # (Auto) 0.0 Basophils # (Auto) 0.0 CBC Comment DIFF FINAL Differential Comment Blood Urea Nitrogen 21 Creatinine 0.73 Random Glucose 161 Total Protein 8.6 Albumin 3.3 Calcium Level 9.7 Magnesium Level 1.6 Alkaline Phosphatase 110 Aspartate Amino Transf (AST/SGOT) 27 Alanine Aminotransferase (ALT/SGPT) 24 Total Bilirubin 0.2 Sodium Level 131 Potassium Level 5.2 Chloride Level 95 Carbon Dioxide Level 22.8 Anion Gap 13 Estimat Glomerular Filtration Rate 126 Ammonia 20 Troponin I LESS THAN 0.02 Lipase 196 B-Hydroxybutyrate 0.19 Lactic Acid Level 4.6 Urine Color YELLOW Urine Turbidity CLEAR Urine pH 7.5 Urine Specific Reynolds 1.013 Urine Protein 30 Urine Glucose (UA) TRACE Urine Ketones NEG Urine Occult Blood NEG Urine Nitrite NEG Urine Bilirubin NEG Urine Urobilinogen LESS THAN 2.0 Urine Leukocyte Esterase LARGE Urine RBC 2 Urine WBC 83 Urine Squamous Epithelial Cells <1 Urine Bacteria FEW Urine Hyaline Casts 1 Microscopic Urinalysis Comment CULTURE INDICATED Total Creatine Kinase 67 Test 05/29/17 05:15 White Blood Count 8.5 Red Blood Count 3.40 Hemoglobin 10.2 Hematocrit 30.3 Mean Corpuscular Volume 89.2 Mean Corpuscular Hemoglobin 30.1 Mean Corpuscular Hemoglobin Concent 33.7 Red Cell Distribution Width 16.3 Platelet Count 362 Mean Platelet Volume 8.9 Neutrophils (%) (Auto) 74.3 Lymphocytes (%) (Auto) 19.9 Monocytes (%) (Auto) 5.0 Eosinophils (%) (Auto) 0.3 Basophils (%) (Auto) 0.5 Neutrophils # (Auto) 6.3 Lymphocytes # (Auto) 1.7 Monocytes # (Auto) 0.4 Eosinophils # (Auto) 0.0 Basophils # (Auto) 0.0 CBC Comment DIFF FINAL Differential Comment Blood Urea Nitrogen 16 Creatinine 0.59 Random Glucose 87 Total Protein 7.4 Albumin 2.8 Calcium Level 9.7 Alkaline Phosphatase 89 Aspartate Amino Transf (AST/SGOT) 18 Alanine Aminotransferase (ALT/SGPT) 18 Total Bilirubin 0.3 Sodium Level 134 Potassium Level 3.6 Chloride Level 98 Carbon Dioxide Level 23.6 Anion Gap 12 Estimat Glomerular Filtration Rate 161 Date/Time Source Procedure Growth Status 05/28/17 19:55 Blood Peripheral Aerobic Blood Culture Pending Received 05/28/17 19:55 Blood Peripheral Anaerobic Blood Culture Pending Received 05/28/17 20:05 Urine Random Urine Urine Culture Pending Received Result Diagram: 05/29/17 0515 05/29/17 0515 Imaging Last [address] 05/28/171917 Signed Impressions: Service Date/Time: Sunday, May 28, 2017 19:39 - CONCLUSION: 1. No acute intracranial abnormalities. Cortical volume loss. Partial opacification of the mastoid air cells bilaterally most characteristic of mastoiditis. Retention cyst left ethmoids. Tripp Noel MD Chest X-Ray 05/28/171917 Signed Impressions: Service Date/Time: Sunday, May 28, 2017 19:35 - CONCLUSION: 1. Linear metallic appearing radiopaque foreign body in the upper esophagus. 2. Patchy airspace disease in the right lung most characteristic of pneumonia or aspiration. Tripp Noel MD Cervical Spine CT 05/28/171917 Signed Impressions: Service Date/Time: Sunday, May 28, 2017 19:39 - CONCLUSION: 1. There is a linear radiopaque metallic appearing foreign body within the proximal esophagus measuring about 16 mm in length. 2. No acute fracture or spondylolisthesis. The prevertebral soft tissue swelling. No significant bony canal stenosis. Tripp Noel MD Caprini VTE Risk Assessment Caprini VTE Risk Assessment: Mod/High Risk (score >= 2) Caprini Risk Assessment Model Point Value = 1 Point Value = 2 Point Value = 3 Point Value = 5 Age 41-60 Minor surgery BMI > 25 kg/m2 Swollen legs Varicose veins or History of unexplained or recurrent spontaneous Oral contraceptives or hormone replacement Sepsis (< 1 month) Serious lung disease, including pneumonia (< 1 month) Abnormal pulmonary function Acute myocardial infarction Congestive heart failure (< 1 month) History of inflammatory bowel disease Medical patient at bed rest Age 61-74 Arthroscopic surgery Major open surgery (> 45 min) Laparoscopic surgery (> 45 min) Malignancy Confined to bed (> 72 hours) Immobilizing plaster cast Central venous access Age >= 75 History of VTE Family history of VTE Factor V Leiden Prothrombin [id number] Lupus anticoagulant Anticardiolipin antibodies Elevated serum homocysteine Heparin-induced thrombocytopenia Other congenital or acquired thrombophilia Stroke (< 1 month) Elective arthroplasty Hip, pelvis, or leg fracture Acute spinal cord injury (< 1 month) Prophylaxis Regimen Total Risk Factor Score Risk Level Prophylaxis Regimen 0-1 Low Early ambulation 2 Moderate Order ONE of the following: *Sequential Compression Device (SCD) *Heparin 5000 units SQ BID 3-4 Higher Order ONE of the following medications: *Heparin 5000 units SQ TID *Enoxaparin/Lovenox 40 mg SQ daily (WT < 150 kg, CrCl > 30 mL/min) *Enoxaparin/Lovenox 30 mg SQ daily (WT < 150 kg, CrCl > 10-29 mL/min) *Enoxaparin/Lovenox 30 mg SQ BID (WT < 150 kg, CrCl > 30 mL/min) AND/OR *Sequential Compression Device (SCD) 5 or more Highest Order ONE of the following medications: *Heparin 5000 units SQ TID (Preferred with Epidurals) *Enoxaparin/Lovenox 40 mg SQ daily (WT < 150 kg, CrCl > 30 mL/min) *Enoxaparin/Lovenox 30 mg SQ daily (WT < 150 kg, CrCl > 10-29 mL/min) *Enoxaparin/Lovenox 30 mg SQ BID (WT < 150 kg, CrCl > 30 mL/min) AND *Sequential Compression Device (SCD) Assessment and Plan Problem List: (1) Pneumonia ICD Codes: J18.9 - Pneumonia, unspecified organism Status: Acute Plan: Rocephin q24 (2) Hypoglycemia ICD Codes: E16.2 - Hypoglycemia, unspecified Status: Acute Plan: Patient brittle Diabetic, Monitor BS, S/C coverage (3) Hyponatremia ICD Codes: E87.1 - Hypo-osmolality and hyponatremia Status: Chronic Plan: Monitor BMP, Na replacement (4) Esophageal perforation ICD Codes: K22.3 - Perforation of esophagus Plan: Gtube, speech/ swallow eval Problem Qualifiers (1) Pneumonia: Qualified Codes: J18.9 - Pneumonia, unspecified organism Malathi Jolly May 29, 2017 08:44
[2017-05-29] MEDS: prednisoLONE ACETATE 1% OPHT SUSP 5 ML BTL LEFT EYE SCH ×4 (09:00→21:00)
[2017-05-29] MEDS: THIAMINE HCL 100 MG TAB PO SCH (09:00)
[2017-05-29] MEDS: SODIUM CHLORIDE 1 GRAM TAB PO SCH ×2 (09:00→21:00)
[2017-05-29] MEDS: DILTIAZEM-CD 240 MG CAP ER PO SCH (09:00)
[2017-05-29] MEDS: SODIUM CHLORIDE 0.9% FLUSH 10 ML FLUSH IV FLUSH SCH ×2 (09:00→21:00)
[2017-05-29] MEDS: DOCUSATE SODIUM 50 MG/SENNA 8.6 MG TAB PO SCH ×2 (09:00→21:00)
[2017-05-29] MEDS ORDERED: GLUCAGON 1 MG/ML VIAL OTHER PRN (09:30)
[2017-05-29] MEDS ORDERED: DEXTROSE 50% IN WATER 50 ML VIAL(D50) IV PUSH PRN (09:30)
[2017-05-29] MEDS ORDERED: DEXT 5%-NACL 0.9% 1000 ML INJ 1,000 ML IV ONE (11:00)
[2017-05-29] MEDS: cefTRIAXone INJ 1,000 MG in SODIUM CHLORIDE 0.9% INJ 100 ML IV SCH (12:37)
[2017-05-29] MEDS ORDERED: ACETAMINOPHEN 325 MG TAB PO PRN (14:00)
[2017-05-29] MEDS: LATANOPROST 0.005% OPHT SOLN 2.5 ML BTL EACH EYE SCH (21:00)
[2017-05-29] MEDS: INSULIN DETEMIR 100 UNITS/ML VIAL SQ SCH (22:42)
[2017-05-30] VITALS: BP 154/81; PULSE 101; RESP 16; TEMP 97; O2SAT 100
[2017-05-30 04:00] VITALS: BP 135/73; PULSE 109; RESP 16; TEMP 98.4; O2SAT 100
[2017-05-30] MEDS: OFLOXACIN 0.3% OPTH SOLN 5 ML BTL LEFT EYE SCH ×4 (06:04→23:39)
[2017-05-30] MEDS: INSULIN HUMAN REGULAR 1,000 UNITS/10 ML VIAL SQ SCH ×4 (06:05→23:38)
[2017-05-30 07:27] LABS: AUTOMATED NEUTROPHIL # 4.5 TH/MM3 (1.8-7.7); BASOPHIL % 0.5 % (0.0-2.0); EOSINOPHIL # 0.1 TH/MM3 (0-0.4); EOSINOPHIL % 0.9 % (0.0-4.0); HEMATOCRIT 31.5 % (39.0-51.0); HEMOGLOBIN 10.3 GM/DL (13.0-17.0); LYMPH % 31.4 % (9.0-44.0); LYMPHOCYTE # 2.3 TH/MM3 (1.0-4.8); MEAN CELL VOLUME 89.3 FL (80.0-100.0); MEAN CORPUSCULAR HEMOGLOBIN 29.3 PG (27.0-34.0); MEAN CORPUSCULAR HGB CONC 32.8 % (32.0-36.0); MEAN PLATELET VOLUME 7.8 FL (7.0-11.0); MONO % 5.3 % (0.0-8.0); MONOCYTE # 0.4 TH/MM3 (0-0.9); NEUT % 61.9 % (16.0-70.0); PLATELET COUNT 369 TH/MM3 (150-450); RED BLOOD COUNT 3.53 MIL/MM3 (4.50-5.90); RED CELL DISTRIBUTION WIDTH 16.3 % (11.6-17.2); WHITE BLOOD COUNT 7.2 TH/MM3 (4.0-11.0)
[2017-05-30 07:56] LABS: BICARBONATE 26.2 MEQ/L (21.0-32.0); CALCIUM 9.2 MG/DL (8.5-10.1); CREATININE 0.66 MG/DL (0.60-1.30)
[2017-05-30 08:00] VITALS: BP 114/67; PULSE 103; RESP 17; TEMP 97.9; O2SAT 97
[2017-05-30] MEDS: prednisoLONE ACETATE 1% OPHT SUSP 5 ML BTL LEFT EYE SCH ×4 (09:00→20:55)
[2017-05-30] MEDS ORDERED: CEFU1TAB18 PO (09:38)
[2017-05-30] MEDS: SODIUM CHLORIDE 1 GRAM TAB PO SCH ×2 (09:49→20:55)
[2017-05-30] MEDS: THIAMINE HCL 100 MG TAB PO SCH (09:49)
[2017-05-30] MEDS: DILTIAZEM-CD 240 MG CAP ER PO SCH (09:49)
[2017-05-30] MEDS: DOCUSATE SODIUM 50 MG/SENNA 8.6 MG TAB PO SCH ×2 (09:49→20:55)
--- NOTE | 2017-05-30 09:49 | HHI.DS ---
Discharge Summary Admission Date May 28, 2017 at 22:26 Discharge Date: May 30, 2017 Admitting Diagnosis PNA, elevated lactic level Brief History 77y male [facility] He has with Blood sugar in 30's, and responded to D50 given in ER. He has history of DM, HTN, HF, GERD. He is NPO after perforated esophagus from EGD done in February, has Gtube. His lactic acid elevated 4.3, CXR shows RLL PNA. CBC/BMP: 05/30/17 0715 05/30/17 0715 Significant Findings Laboratory Tests Test 05/28/17 19:20 05/28/17 19:55 05/28/17 20:05 05/28/17 22:00 Red Blood Count 4.40 MIL/MM3 (4.50-5.90) Blood Urea Nitrogen 21 MG/DL (7-18) Random Glucose 161 MG/DL (74-106) Total Protein 8.6 GM/DL (6.4-8.2) Albumin 3.3 GM/DL (3.4-5.0) Sodium Level 131 MEQ/L (136-145) Potassium Level 5.2 MEQ/L (3.5-5.1) Chloride Level 95 MEQ/L (98-107) Troponin I LESS THAN 0.02 NG/ML Lactic Acid Level 4.6 mmol/L (0.4-2.0) Urine Protein 30 mg/dL (NEG-TRACE) Urine Leukocyte Esterase LARGE (NEG) Urine WBC 83 /hpf (0-5) Urine Bacteria FEW /hpf (NONE) Test 05/29/17 05:15 05/30/17 07:15 Red Blood Count 3.40 MIL/MM3 (4.50-5.90) 3.53 MIL/MM3 (4.50-5.90) Hemoglobin 10.2 GM/DL (13.0-17.0) 10.3 GM/DL (13.0-17.0) Hematocrit 30.3 % (39.0-51.0) 31.5 % (39.0-51.0) Neutrophils (%) (Auto) 74.3 % (16.0-70.0) Creatinine 0.59 MG/DL (0.60-1.30) Albumin 2.8 GM/DL (3.4-5.0) Sodium Level 134 MEQ/L (136-145) Imaging Last [address] 05/28/171917 Signed Impressions: Service Date/Time: Sunday, May 28, 2017 19:39 - CONCLUSION: 1. No acute intracranial abnormalities. Cortical volume loss. Partial opacification of the mastoid air cells bilaterally most characteristic of mastoiditis. Retention cyst left ethmoids. Tripp Noel MD Chest X-Ray 05/28/171917 Signed Impressions: Service Date/Time: Sunday, May 28, 2017 19:35 - CONCLUSION: 1. Linear metallic appearing radiopaque foreign body in the upper esophagus. 2. Patchy airspace disease in the right lung most characteristic of pneumonia or aspiration. Tripp Noel MD Cervical Spine CT 05/28/171917 Signed Impressions: Service Date/Time: Sunday, May 28, 2017 19:39 - CONCLUSION: 1. There is a linear radiopaque metallic appearing foreign body within the proximal esophagus measuring about 16 mm in length. 2. No acute fracture or spondylolisthesis. The prevertebral soft tissue swelling. No significant bony canal stenosis. Tripp Noel MD PE at Discharge Alert in bed no distress Resp- lungs clear B/L No wheezes, rhonchi Cardiology- RRR Gi- G tube in place, abdomen soft non tender, + BS Hospital Course Admitted for Low BS, high lactic acid, found to have UTI, treated with Rocephin will switched to ceftin at NH. CXR on admission show patch air space, likely pna, aspiration. He does have G Tube in place seen by speech, cont Tube feed for Perforated esophagus. Head CT negative for intracranial abnormalities. Treated with IVF, antibiotics. BS monitored and he elizabeth not had any hypoglycemic episodes. Will return to rehab. Discharge Instructions DIET: Follow Instructions for: Nothing By Mouth Additional Diet Instructions: Glucerna 1.5 hr 45 hr Activities you can perform: Regular-No Restrictions New Medications: Cefuroxime (Ceftin) 250 Mg Tab 250 MG PO BID for Infection for 7 Days, #14 TAB Continued Medications: Clonidine 168 HR Patch ([id number] 168 HR Patch) 0.3 Mg/24 Hr Patch 1 PATCH T-DERMAL Q7D for hypertension for 30 Days, PATCH 0 Refills Diltiazem CD 24 HR (Cardizem CD 24 HR) 240 Mg Caper 240 MG PO DAILY for hypertension for 30 Days, #30 CAP 0 Refills Insulin Detemir Inj (Levemir Inj) 1,000 unit/ 10 ML Vial 5 UNITS SQ HS for diabetes for 30 Days, INJECTION 0 Refills Do not mix with any other Insulin. Latanoprost Opth Drops (Latanoprost Opth Drops) 0.005% Drops 1 DROP EACH EYE HS for Glaucoma, #2.5 ML 0 Refills Refrigerate until opened. Ofloxacin Opth Drops (Ocuflox Opth Drops) 0.3 % Drops 1 DROP LEFT EYE Q6HR for Infection, #1 BOTTLE 0 Refills Prednisolone Acetate Opth 1% (Pred Forte Opth 1%) 1% Susp 1 DROP LEFT EYE QID for Inflammation, #1 BOTTLE 0 Refills Sodium Chloride (Sodium Chloride) 1 Gram Tab 1 GM PO BID for hyponatremia for 30 Days, TAB 0 Refills Thiamine HCl (Gnp Vitamin B-1) 100 Mg Tab 100 MG PO DAILY for vitamin for 30 Days, #30 TAB 0 Refills [Albuterol-Ipratropium Neb] () 1 AMPULE NEBU 1 AMPULE NEB Q6HR NEB PRN for SHORTNESS OF BREATH for 5 Days, 0 Refills Discontinued Medications: Insulin Human Regular Inj (Novolin R Inj) 1,000 Unit/10 Ml Vial 1 UNIT SQ Q6HR for diabetes for 30 Days, INJECTION 0 Refills Additional Information DC back to SNF, dietary consult for continued TF recommendation. Malathi Jolly May 30, 2017 09:49
[2017-05-30] MEDS: SODIUM CHLORIDE 0.9% FLUSH 10 ML FLUSH IV FLUSH SCH ×2 (09:50→20:55)
[2017-05-30] MEDS: cefTRIAXone INJ 1,000 MG in SODIUM CHLORIDE 0.9% INJ 100 ML IV SCH (11:55)
[2017-05-30 12:00] VITALS: BP 147/76; PULSE 109; RESP 19; TEMP 97.8; O2SAT 95
[2017-05-30 16:00] VITALS: BP 116/63; PULSE 91; RESP 17; TEMP 97.8; O2SAT 98
[2017-05-30 20:00] VITALS: BP 109/59; PULSE 84; RESP 16; TEMP 97; O2SAT 100
[2017-05-30] MEDS: LATANOPROST 0.005% OPHT SOLN 2.5 ML BTL EACH EYE SCH (20:55)
[2017-05-30] MEDS: INSULIN DETEMIR 100 UNITS/ML VIAL SQ SCH (22:21)
[2017-05-30] MEDS: ENOXAPARIN SODIUM 30 MG/0.3 ML SYRINGE SQ SCH ×2 (22:22→23:32)
[2017-05-31] VITALS: BP 108/61; PULSE 97; PULSE 99; RESP 16; TEMP 97.5; O2SAT 99
[2017-05-31 04:40] VITALS: BP 116/59; PULSE 98; RESP 16; TEMP 97.7; O2SAT 99
[2017-05-31] MEDS: OFLOXACIN 0.3% OPTH SOLN 5 ML BTL LEFT EYE SCH ×2 (05:18→11:41)
[2017-05-31] MEDS: INSULIN HUMAN REGULAR 1,000 UNITS/10 ML VIAL SQ SCH ×2 (05:32→11:39)
[2017-05-31 08:00] VITALS: BP 110/57; PULSE 79; PULSE 91; PULSE 96; RESP 14; TEMP 99; O2SAT 58
[2017-05-31 08:34] LABS: BASOPHIL # 0.1 TH/MM3 (0-0.2); BASOPHIL % 0.8 % (0.0-2.0); EOSINOPHIL # 0.1 TH/MM3 (0-0.4); EOSINOPHIL % 1.8 % (0.0-4.0); HEMATOCRIT 31.3 % (39.0-51.0); HEMOGLOBIN 10.3 GM/DL (13.0-17.0); LYMPH % 34.9 % (9.0-44.0); LYMPHOCYTE # 2.4 TH/MM3 (1.0-4.8); MEAN CELL VOLUME 90.2 FL (80.0-100.0); MEAN CORPUSCULAR HEMOGLOBIN 29.7 PG (27.0-34.0); MEAN CORPUSCULAR HGB CONC 32.9 % (32.0-36.0); MONO % 4.2 % (0.0-8.0); MONOCYTE # 0.3 TH/MM3 (0-0.9); NEUT % 58.3 % (16.0-70.0); PLATELET COUNT 361 TH/MM3 (150-450); RED BLOOD COUNT 3.47 MIL/MM3 (4.50-5.90); RED CELL DISTRIBUTION WIDTH 16.6 % (11.6-17.2); WHITE BLOOD COUNT 6.9 TH/MM3 (4.0-11.0)
[2017-05-31 09:07] LABS: BICARBONATE 26.2 MEQ/L (21.0-32.0); CALCIUM 8.9 MG/DL (8.5-10.1); CREATININE 0.73 MG/DL (0.60-1.30)
[2017-05-31] MEDS: SODIUM CHLORIDE 1 GRAM TAB PO SCH (09:29)
[2017-05-31] MEDS: THIAMINE HCL 100 MG TAB PO SCH (09:29)
[2017-05-31] MEDS: DILTIAZEM-CD 240 MG CAP ER PO SCH (09:29)
[2017-05-31] MEDS: DOCUSATE SODIUM 50 MG/SENNA 8.6 MG TAB PO SCH (09:29)
[2017-05-31] MEDS: SODIUM CHLORIDE 0.9% FLUSH 10 ML FLUSH IV FLUSH SCH (09:30)
[2017-05-31] MEDS: prednisoLONE ACETATE 1% OPHT SUSP 5 ML BTL LEFT EYE SCH ×2 (09:30→11:41)
[2017-05-31] MEDS: cefTRIAXone INJ 1,000 MG in SODIUM CHLORIDE 0.9% INJ 100 ML IV SCH (11:41)
[2017-05-31 12:00] VITALS: BP 108/60; PULSE 97; RESP 15; TEMP 98.4; O2SAT 98
--- NOTE | 2017-06-01 13:47 | EKG ---
Date Performed: 05/28/2017 Time Performed: 20:34:43 PTAGE: 77 years EKG: Normal Sinus rhythm Nonspecific ST segment changes Since the prior tracing, there has been no significant change DOCTOR: Aleksey Cantu Interpretating Date/Time 06/01/2017 13:47:10
== END 2017-05-31 16:52 | DRG 177 ==
LOC: NEPC 19:01 → NEDA 22:26 → N07B 05-29 01:23
PROVIDERS: ADMIT Family Medicine; ATTEND Family Medicine
DX: J69.0 Pneumonitis due to inhalation of food and vomit (principal); K22.3 Perforation of esophagus; R64 Cachexia; E87.1 Hypo-osmolality and hyponatremia; Z68.1 Body mass index [BMI] 19.9 or less, adult; N39.0 Urinary tract infection, site not specified; I11.0 Hypertensive heart disease with heart failure; I50.9 Heart failure, unspecified; R56.9 Unspecified convulsions; E87.5 Hyperkalemia; R62.7 Adult failure to thrive; K21.9 Gastro-esophageal reflux disease without esophagitis; H40.9 Unspecified glaucoma; N40.0 Benign prostatic hyperplasia without lower urinary tract symptoms; Z79.4 Long term (current) use of insulin; Z93.1 Gastrostomy status
CPT/HCPCS: 70450; 71045; 72125; 80048; 80053; 81001; 82010; 82140; 82550; 82948; 83605; 83690; 83735; 84484; 85025; 87040; 87077; 87086; 87186; 93005; 96365; J0696; J1650; J1815; J2543; J3370; J7042; J7050

== ENCOUNTER 2017-07-03 10:01 | Emergency (ER) | payer MEDICARE, OTHER ==
[~2017-07-03] VITALS: Ht 167.6 cm; Wt 40.0 kg
[~2017-07-03 10:01] MED LIST changes: +CEFU1TAB18 PO; -NOVORP2 SQ
[2017-07-03] MEDS ORDERED: IOHEXOL 350 MG/ML 50 ML BTL (for RAD DIAG) G-TUBE ONE (10:02)
[2017-07-03 10:05] VITALS: BP 120/67; PULSE 90; RESP 16; TEMP 97.6; O2SAT 100
[2017-07-03] MEDS ORDERED: DILT1TAB4 PEG (10:35)
[2017-07-03] MEDS ORDERED: VITA100T54 PEG (10:35)
[2017-07-03 10:37] VITALS: BP 133/75; PULSE 80; RESP 17; TEMP 97.8; O2SAT 100
[2017-07-03 10:57] VITALS: RESP 17; O2SAT 98
--- NOTE | 2017-07-03 11:56 | PD ---
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 Patient was admitted to [facility] May 28 and discharged May 30 with gastric feeding tube. Patient has history of perforated esophagus. Gastric tube was accidentally displaced this morning. Patient denies other medical problem. Patient has history of diabetes, hypertension, heart failure, GERD. PFSH Past Medical History Arthritis: No Asthma: No Autoimmune Disease: No Blood Disorders: No Heart Rhythm Problems: No Cancer: No Cardiovascular Problems: Yes High Cholesterol: No Chemotherapy: No Congestive Heart Failure: Yes COPD: No Cerebrovascular Accident: No Dementia: Yes Diabetes: Yes Patient Takes Glucophage: No Diminished Hearing: No Endocrine: Yes Gastrointestinal Disorders: Yes (trouble swallowing/dysphagia) GERD: Yes Glaucoma: Yes Genitourinary: Yes Hepatitis: No Hiatal Hernia: No Hypertension: Yes Immune Disorder: No Implanted Vascular Access Dvce: Yes Kidney Stones: No Musculoskeletal: Yes Neurologic: Yes (dementia) Psychiatric: No Reproductive: No Respiratory: No Myocardial Infarction: No Radiation Therapy: No Renal Failure: Yes Seizures: Yes (no hx just recent) Sickle Cell Disease: No Sleep Apnea: No Thyroid Disease: No Ulcer: No Tetanus Vaccination: > 5 Years Influenza Vaccination: No Past Surgical History Abdominal Surgery: Yes (g tube placement) AICD: No Arteriovenous Shunt: No Body Medical Devices: g tube Genitourinary Surgery: No Insulin Pump: No Joint Replacement: No Pacemaker: No Other Surgery: Yes Social History Alcohol Use: Yes (ocassionally) Tobacco Use: No Substance Use: Yes (in past/etoh in past) Allergies-Medications (Allergen,Severity, Reaction): Coded Allergies: No Known Allergies (Verified Allergy, Severe, 07/03/17) Reported Meds & Prescriptions Reported Meds & Active Scripts Active Levemir Inj (Insulin Detemir) 1,000 unit/ 10 ML Vial 5 Units SQ HS 30 Days Do not mix with any other Insulin. [id number] 168 HR Patch (Clonidine) 0.3 Mg/24 Hr Patch 1 Patch T-DERMAL Q7D 30 Days [Albuterol-Ipratropium Neb] 1 AMPULE Nebu 1 Ampule NEB Q6HR NEB PRN 5 Days Reported Vitamin B-1 (Thiamine HCl) 100 Mg Tab 100 Mg PEG DAILY Diltiazem ER 24 HR 240 Mg Michael 240 Mg PEG DAILY Latanoprost Opth Drops (Latanoprost) 0.005% Drops 1 Drop EACH EYE HS Refrigerate until opened. Review of Systems General / Constitutional: No: Fever Eyes: No: Visual changes HENT: No: Headaches Cardiovascular: No: Chest Pain or Discomfort Respiratory: No: Shortness of Breath Gastrointestinal: No: Abdominal Pain Genitourinary: No: Dysuria Musculoskeletal: No: Pain Skin: No Rash Neurologic: No: Weakness Psychiatric: No: Depression Endocrine: No: Polydipsia Hematologic/Lymphatic: No: Easy Bruising Physical Exam Narrative GENERAL: Well-nourished, well-developed patient. SKIN: Focused skin assessment warm/dry. HEAD: Normocephalic. EYES: No scleral icterus. No injection or drainage. NECK: Supple, trachea midline. No JVD or lymphadenopathy. CARDIOVASCULAR: Regular rate and rhythm without murmurs, gallops, or rubs. RESPIRATORY: Breath sounds equal bilaterally. No accessory muscle use. GASTROINTESTINAL: Abdomen soft, non-tender, nondistended. Gastric tube completely displaced outside. Small stoma visible on the left upper quadrant of the abdomen MUSCULOSKELETAL: No cyanosis, or edema. BACK: Nontender without obvious deformity. No CVA tenderness. Neurologic exam normal. Data Data Last Documented VS Vital Signs Date Time Temp Pulse Resp B/P (MAP) Pulse Ox O2 Delivery O2 Flow Rate FiO2 07/03/17 15:52 97.2 87 15 112/62 (79) 100 Room Air Orders Orders Chest, Single Ap (07/03/17 10:49) Change Of G-Tube Catheter (07/03/17 ) Iohexol 350 Inj (Omnipaque 350 Inj) (07/03/17 10:02) Vital Signs (Adult) Q15MX2,Q30MX2 (07/03/17 15:52) Wound Care (07/03/17 15:52) ^ Dressings (07/03/17 15:52) Notify Dr: Other (07/03/17 15:52) Ed Discharge Order (07/03/17 16:07) MDM Medical Decision Making Medical Screen Exam Complete: Yes Emergency Medical Condition: Yes Differential Diagnosis Differential diagnosis including G-tube displacement. Narrative Course 77-year-old male with gastric tube displacement. 16 Setswana Hernandez cath was put in place. Interventional radiologist contacted. Will replace G-tube. Diagnosis Primary Impression: Encounter for feeding tube placement Patient Instructions: General Instructions Additional Instructions: Continue with all medications. Follow-up with personal physician. Return as needed. Med/Other Pt SpecificInfo: No Change to Meds Disposition: 01 DISCHARGE HOME Condition: Stable Maykel Inman MD Jul 03, 2017 11:56
[2017-07-03 12:00] VITALS: BP 124/83; PULSE 78; RESP 16; TEMP 97.8; O2SAT 100
--- NOTE | 2017-07-03 12:05 | RADRPT ---
EXAM DATE/TIME: 07/03/2017 11:01 [facility] COMPARISON: CHEST SINGLE AP, May 28, 2017, 19:35. INDICATIONS : Shortness of breath. MEDICAL HISTORY : Hypertension. Diabetes mellitus type II. Renal failure, chronic. SURGICAL HISTORY : None. ENCOUNTER: Initial ACUITY: 1 day PAIN SCORE: 0/10 LOCATION: Bilateral chest FINDINGS: Interval resolution of patchy airspace disease throughout the right lung with minimal residual inters titial and airspace opacities. Left lung is clear. Cardiomediastinal contours are within normal limit s. Bony thorax is intact. CONCLUSION: 1. Near interval resolution of patchy airspace disease throughout the right lung. Levar Pena MD on July 03, 2017 at 11:23 Board Certified Radiologist. This report was verified electronically.
[2017-07-03 15:52] VITALS: BP 112/62; PULSE 87; RESP 15; TEMP 97.2; O2SAT 100
--- NOTE | 2017-07-03 15:54 | RADRPT ---
EXAM DATE/TIME: 07/03/2017 15:00 [facility] COMPARISON: No previous studies available for comparison. INDICATIONS : Patient presents with disloged gastrostomy tube in need of replacement. MEDICAL HISTORY : Glaucoma Dementia Diabetes ETOH HTN GERD Seizures SURGICAL HISTORY : G-Tube ENCOUNTER: Subsequent ACUITY: 1 day PAIN SCORE: 0/10 LOCATION: N/A FLUORO TIME: 0.2 minutes IMAGE SERIES: 2 CONTRAST: 10 cc Omnipaque (iohexol) 350 DEVICE(S): 1.) 18 [place] gastrostomy tube PROCEDURE : 1. Fluoroscopically guided gastrostomy tube exchange. 2. Conscious sedation with continuous EKG and oximetry monitoring. The risks, benefits and alternatives to the procedure were explained and verbal and written consent w as obtained. The site was prepped in sterile fashion. Full sterile technique was used, including ca p, mask, sterile gloves and gown and a large sterile sheet. Hand hygiene and 2% chlorhexidine and/or betadine/alcohol prep was utilized per protocol for cutaneous antisepsis. The skin and subcutaneous tissues were infiltrated with local anesthetic solution. The existing tube was accessed using sterile technique. The tube was removed over a 0.035 wire. A ne w tube was advanced over the wire and positioned into the stomach without difficulty. The balloon wa s inflated with appropriate volume of saline. Injection of positive contrast demonstrates good posit ion of the gastrostomy tube. Conscious sedation was performed with the prescribed dosages and duration as above in the presence of an independent trained radiology nurse to assist in the monitoring of the patient. EKG and oximetry remained stable throughout the procedure. The patient tolerated the procedure well and there were n o complications. The patient was sent to post anesthesia recovery in stable condition. CONCLUSION: Uncomplicated gastrostomy tube exchange as above. Levar Pena MD on July 03, 2017 at 15:51 Board Certified Radiologist. This report was verified electronically.
[2017-07-03 16:15] VITALS: BP 120/81; TEMP 97.8
== END 2017-07-03 16:15 | disposition home or self-care (01) ==
LOC: NEPE 10:01
DX: Z46.59 Encounter for fitting and adjustment of other gastrointestinal appliance and device (principal); I11.0 Hypertensive heart disease with heart failure; I50.9 Heart failure, unspecified; E11.9 Type 2 diabetes mellitus without complications; Z79.4 Long term (current) use of insulin
CPT/HCPCS: 49450; 71045; 99284; C1769; Q9967

== ENCOUNTER 2017-07-14 19:20 | Inpatient (IN) | payer OTHER, MEDICARE ==
[~2017-07-14] VITALS: Ht 167.6 cm; Wt 40.9 kg
[~2017-07-14 19:20] MED LIST changes: -CARD240C6 PO; -CEFU1TAB18 PO; +DILT1TAB4 PEG; -OCUF0.3D LEFT EYE; -PRED1SUS LEFT EYE; -SODI1TAB PO; -THIA100 PO; +VITA100T54 PEG
[2017-07-14 19:27] VITALS: BP 153/86; PULSE 108; RESP 20; TEMP 97.4; O2SAT 100
[2017-07-14 20:33] VITALS: BP 122/61; PULSE 95; RESP 19; O2SAT 100
[2017-07-14 20:35] VITALS: RESP 19; O2SAT 100
[2017-07-14] MEDS: DEXT 5%-NACL 0.45% 1000 ML INJ 1,000 ML IV SCH (20:37)
--- NOTE | 2017-07-14 20:37 | PD ---
HPI Chief Complaint: Diabetic Time Seen by Provider: 19:28 Travel History International Travel<30 days: No Contact w/Intl Traveler<30days: No Traveled to known affect area: No History of Present Illness HPI 77-year-old male was for him by EMS for hypoglycemia. Patient has history of diabetes. Patient has history of perforated esophagus status post gastric tube feeding placement. Blood sugar this evening was found to be 27 at home. EMS was called. Patient was given D10 on the way to the ED. Patient denies any headache. Patient denies any chest pain or shortness of breath. Patient denies abdominal pain. Patient denies any nausea vomiting diarrhea. Patient denies any fever chills. Patient has history hypertension, heart failure and GERD. Family member states that patient has frequent hypoglycemic episodes at home. Patient usually gets shaky with hypoglycemic episodes. Blood sugar frequently drops into the 20s at home. Family member states that they have problem regulate his blood sugars at home. Patient is on Levemir once a day and NovoLog to cover hyperglycemia. PFSH Past Medical History Arthritis: No Asthma: No Autoimmune Disease: No Blood Disorders: No Heart Rhythm Problems: No Cancer: No Cardiovascular Problems: Yes High Cholesterol: No Chemotherapy: No Congestive Heart Failure: Yes COPD: No Cerebrovascular Accident: No Dementia: Yes Diabetes: Yes Patient Takes Glucophage: No Diminished Hearing: No Endocrine: Yes Gastrointestinal Disorders: Yes (trouble swallowing/dysphagia) GERD: Yes Glaucoma: Yes Genitourinary: Yes Hepatitis: No Hiatal Hernia: No Hypertension: Yes Immune Disorder: No Implanted Vascular Access Dvce: Yes Kidney Stones: No Musculoskeletal: Yes Neurologic: Yes (dementia) Psychiatric: No Reproductive: No Respiratory: No Myocardial Infarction: No Radiation Therapy: No Renal Failure: Yes Seizures: Yes Sickle Cell Disease: No Sleep Apnea: No Thyroid Disease: No Ulcer: No Influenza Vaccination: No Past Surgical History Abdominal Surgery: Yes (g tube placement) AICD: No Arteriovenous Shunt: No Body Medical Devices: g tube Genitourinary Surgery: No Insulin Pump: No Joint Replacement: No Pacemaker: No Other Surgery: Yes Social History Alcohol Use: Yes (ocassionally) Tobacco Use: No Substance Use: Yes (in past/etoh in past) Allergies-Medications (Allergen,Severity, Reaction): Coded Allergies: No Known Allergies (Verified Allergy, Severe, 07/14/17) Reported Meds & Prescriptions Reported Meds & Active Scripts Active Levemir Inj (Insulin Detemir) 1,000 unit/ 10 ML Vial 5 Units SQ HS 30 Days Do not mix with any other Insulin. [id number] HR Patch (Clonidine) 0.3 Mg/24 Hr Patch 1 Patch T-DERMAL Q7D 30 Days [Albuterol-Ipratropium Neb] 1 AMPULE Nebu 1 Ampule NEB Q6HR NEB PRN 5 Days Reported Vitamin B-1 (Thiamine HCl) 100 Mg Tab 100 Mg PEG DAILY Diltiazem ER 24 HR 240 Mg Michael 240 Mg PEG DAILY Latanoprost Opth Drops (Latanoprost) 0.005% Drops 1 Drop EACH EYE HS Refrigerate until opened. Review of Systems General / Constitutional: No: Fever Eyes: No: Visual changes HENT: No: Headaches Cardiovascular: No: Chest Pain or Discomfort Respiratory: No: Shortness of Breath Gastrointestinal: No: Abdominal Pain Genitourinary: No: Dysuria Musculoskeletal: No: Pain Skin: No Rash Neurologic: No: Weakness Psychiatric: No: Depression Endocrine: No: Polydipsia Hematologic/Lymphatic: No: Easy Bruising Physical Exam Narrative GENERAL: Well-nourished, well-developed patient. SKIN: Focused skin assessment warm/dry. HEAD: Normocephalic. EYES: No scleral icterus. No injection or drainage. NECK: Supple, trachea midline. No JVD or lymphadenopathy. CARDIOVASCULAR: Regular rate and rhythm without murmurs, gallops, or rubs. RESPIRATORY: Breath sounds equal bilaterally. No accessory muscle use. GASTROINTESTINAL: Abdomen soft, non-tender, nondistended. MUSCULOSKELETAL: No cyanosis, or edema. BACK: Nontender without obvious deformity. No CVA tenderness. Neurologic exam: Patient is awake and alert oriented to place and person. Patient moves all extremity well. No obvious focal deficit. Data Data Last Documented VS Vital Signs Date Time Temp Pulse Resp B/P (MAP) Pulse Ox O2 Delivery O2 Flow Rate FiO2 07/14/17 20:35 19 100 07/14/17 20:33 95 Room Air 07/14/17 19:27 97.4 Orders Orders Dext 5%-Nacl 0.45% 1000 Ml Inj (D5w-1/2 (07/14/17 20:30) Complete Blood Count With Diff (07/14/17 20:33) Basic Metabolic Panel (Bmp) (07/14/17 20:33) Iv Access Insert/Monitor (07/14/17 20:33) Ecg Monitoring (07/14/17 20:33) Oximetry (07/14/17 20:33) Labs Laboratory Tests Test 07/14/17 20:35 White Blood Count 7.4 TH/MM3 Red Blood Count 3.92 MIL/MM3 Hemoglobin 11.3 GM/DL Hematocrit 34.5 % Mean Corpuscular Volume 87.9 FL Mean Corpuscular Hemoglobin 28.7 PG Mean Corpuscular Hemoglobin Concent 32.6 % Red Cell Distribution Width 16.2 % Platelet Count 289 TH/MM3 Mean Platelet Volume 9.7 FL Neutrophils (%) (Auto) 74.9 % Lymphocytes (%) (Auto) 18.7 % Monocytes (%) (Auto) 5.1 % Eosinophils (%) (Auto) 1.0 % Basophils (%) (Auto) 0.3 % Neutrophils # (Auto) 5.6 TH/MM3 Lymphocytes # (Auto) 1.4 TH/MM3 Monocytes # (Auto) 0.4 TH/MM3 Eosinophils # (Auto) 0.1 TH/MM3 Basophils # (Auto) 0.0 TH/MM3 CBC Comment DIFF FINAL Differential Comment Blood Urea Nitrogen 18 MG/DL Creatinine 0.72 MG/DL Random Glucose 190 MG/DL Calcium Level 9.3 MG/DL Sodium Level 135 MEQ/L Potassium Level 4.1 MEQ/L Chloride Level 99 MEQ/L Carbon Dioxide Level 27.7 MEQ/L Anion Gap 8 MEQ/L Estimat Glomerular Filtration Rate 128 ML/MIN MDM Medical Decision Making Medical Screen Exam Complete: Yes Emergency Medical Condition: Yes Interpretation(s) 21:54 PM. CBC WBC 7.4. Hemoglobin 11.3 hematocrit 34.5. 74 neutrophil. Sodium 135. Glucose 190. Differential Diagnosis Differential diagnosis including hypoglycemia, electrolyte imbalance. Narrative Course 77-year-old male with hypoglycemia. History of diabetes. Patient on Levemir at home. Patient was given D10 by EMS. D5 one half normal saline solution 1 25 cc an hour. Diagnosis Primary Impression: Hypoglycemia Admitting Information Admitting Physician Requests: Observation Maykel Inman MD Jul 14, 2017 20:37
[2017-07-14 21:18] LABS: AUTOMATED NEUTROPHIL # 5.6 TH/MM3 (1.8-7.7); BASOPHIL % 0.3 % (0.0-2.0); EOSINOPHIL # 0.1 TH/MM3 (0-0.4); HEMATOCRIT 34.5 % (39.0-51.0); HEMOGLOBIN 11.3 GM/DL (13.0-17.0); LYMPH % 18.7 % (9.0-44.0); LYMPHOCYTE # 1.4 TH/MM3 (1.0-4.8); MEAN CELL VOLUME 87.9 FL (80.0-100.0); MEAN CORPUSCULAR HEMOGLOBIN 28.7 PG (27.0-34.0); MEAN CORPUSCULAR HGB CONC 32.6 % (32.0-36.0); MEAN PLATELET VOLUME 9.7 FL (7.0-11.0); MONO % 5.1 % (0.0-8.0); MONOCYTE # 0.4 TH/MM3 (0-0.9); NEUT % 74.9 % (16.0-70.0); PLATELET COUNT 289 TH/MM3 (150-450); RED BLOOD COUNT 3.92 MIL/MM3 (4.50-5.90); RED CELL DISTRIBUTION WIDTH 16.2 % (11.6-17.2); WHITE BLOOD COUNT 7.4 TH/MM3 (4.0-11.0)
[2017-07-14 21:26] LABS: BICARBONATE 27.7 MEQ/L (21.0-32.0); CALCIUM 9.3 MG/DL (8.5-10.1); CREATININE 0.72 MG/DL (0.60-1.30)
--- NOTE | 2017-07-14 22:37 | HHI.HP ---
[facility] Artem Rider MD Admission Diagnosis Hypoglycemia. History of diabetes. Diagnoses: (1) Hypoglycemia Diagnosis: Principal (2) HTN (hypertension) Diagnosis: Principal (3) Esophageal perforation Diagnosis: Principal Travel History International Travel<30 Days: No Contact w/Intl Traveler <30 Da: No Traveled to Known Affected Are: No History of Present Illness This is a 77-year-old male with a PMH of HTN, CHF (Echo 03/13/2017 w/ EF 50-55%) , h/o Esophageal Perforation 02/2017, s/p PEG Tube who was brought to the ER by EMS secondary to episode of hypoglycemia, BS 27 at home per family. Recent admit 05/29-05/30/17 for similar event, and recent uncomplicated G-tube exchange by IR on 07/03/17. Pt unable to provide much history, family unsure of what tube feeds he is receiving. Per review of medical records, on Levemir 5mg hs. While in ER w/ recurrent hypoglycemia, currently on D5. BP 153/86, HR 108, O2 sat 100% RA, Afebrile. CBC unremarkable. Chemistry essentially unremarkable. Review of Systems Except as stated in HPI: all other systems reviewed are Neg ROS: 14 point review of systems otherwise negative. Past Family Social History Past Medical History PMH: HTN, CHF (Echo 03/13/2017 w/ EF 50-55%), h/o Esophageal Perforation 2016, s/p PEG Tube Past Surgical History PAST SURGICAL HISTORY: G tube Placement Allergies: Coded Allergies: No Known Allergies (Verified Allergy, Severe, 07/14/17) Family History PAST FAMILY HISTORY: Reviewed. No h/o DM or CAD Social History PAST SOCIAL HISTORY: Occasional alcohol. Negative for tobacco or drugs. Physical Exam Vital Signs Vital Signs Date Time Temp Pulse Resp B/P (MAP) Pulse Ox O2 Delivery O2 Flow Rate FiO2 07/14/17 20:35 19 100 07/14/17 20:33 95 19 122/61 (81) 100 Room Air 07/14/17 19:27 97.4 108 20 153/86 (108) 100 Physical Exam PE: GENERAL: Thin elderly black male in no acute distress. HEENT: PERRLA, EOMI. No scleral icterus or conjunctival pallor. No lid lag or facial droop. CARDIOVASCULAR: Regular rate and rhythm. No obvious murmurs to auscultation. No chest tenderness to palpation. RESPIRATORY: No obvious rhonchi or wheezing. Clear to auscultation. Breath sounds equal bilaterally. GASTROINTESTINAL: Abdomen soft, non-tender, nondistended. BS normal. G-tube in place. MUSCULOSKELETAL: Extremities without clubbing, cyanosis, or edema. No obvious deformities. NEUROLOGICAL: Awake, alert and oriented x4. No focal neurologic deficits. Moving both upper and lower extremities spontaneously. Laboratory Laboratory Tests Test 07/14/17 20:35 White Blood Count 7.4 Red Blood Count 3.92 Hemoglobin 11.3 Hematocrit 34.5 Mean Corpuscular Volume 87.9 Mean Corpuscular Hemoglobin 28.7 Mean Corpuscular Hemoglobin Concent 32.6 Red Cell Distribution Width 16.2 Platelet Count 289 Mean Platelet Volume 9.7 Neutrophils (%) (Auto) 74.9 Lymphocytes (%) (Auto) 18.7 Monocytes (%) (Auto) 5.1 Eosinophils (%) (Auto) 1.0 Basophils (%) (Auto) 0.3 Neutrophils # (Auto) 5.6 Lymphocytes # (Auto) 1.4 Monocytes # (Auto) 0.4 Eosinophils # (Auto) 0.1 Basophils # (Auto) 0.0 CBC Comment DIFF FINAL Differential Comment Blood Urea Nitrogen 18 Creatinine 0.72 Random Glucose 190 Calcium Level 9.3 Sodium Level 135 Potassium Level 4.1 Chloride Level 99 Carbon Dioxide Level 27.7 Anion Gap 8 Estimat Glomerular Filtration Rate 128 Result Diagram: 07/14/17203407/14/172034 Caprini VTE Risk Assessment Caprini VTE Risk Assessment: No/Low Risk (score <= 1) Caprini Risk Assessment Model Point Value = 1 Point Value = 2 Point Value = 3 Point Value = 5 Age 41-60 Minor surgery BMI > 25 kg/m2 Swollen legs Varicose veins or History of unexplained or recurrent spontaneous Oral contraceptives or hormone replacement Sepsis (< 1 month) Serious lung disease, including pneumonia (< 1 month) Abnormal pulmonary function Acute myocardial infarction Congestive heart failure (< 1 month) History of inflammatory bowel disease Medical patient at bed rest Age 61-74 Arthroscopic surgery Major open surgery (> 45 min) Laparoscopic surgery (> 45 min) Malignancy Confined to bed (> 72 hours) Immobilizing plaster cast Central venous access Age >= 75 History of VTE Family history of VTE Factor V Leiden Prothrombin [id number] Lupus anticoagulant Anticardiolipin antibodies Elevated serum homocysteine Heparin-induced thrombocytopenia Other congenital or acquired thrombophilia Stroke (< 1 month) Elective arthroplasty Hip, pelvis, or leg fracture Acute spinal cord injury (< 1 month) Prophylaxis Regimen Total Risk Factor Score Risk Level Prophylaxis Regimen 0-1 Low Early ambulation 2 Moderate Order ONE of the following: *Sequential Compression Device (SCD) *Heparin 5000 units SQ BID 3-4 Higher Order ONE of the following medications: *Heparin 5000 units SQ TID *Enoxaparin/Lovenox 40 mg SQ daily (WT < 150 kg, CrCl > 30 mL/min) *Enoxaparin/Lovenox 30 mg SQ daily (WT < 150 kg, CrCl > 10-29 mL/min) *Enoxaparin/Lovenox 30 mg SQ BID (WT < 150 kg, CrCl > 30 mL/min) AND/OR *Sequential Compression Device (SCD) 5 or more Highest Order ONE of the following medications: *Heparin 5000 units SQ TID (Preferred with Epidurals) *Enoxaparin/Lovenox 40 mg SQ daily (WT < 150 kg, CrCl > 30 mL/min) *Enoxaparin/Lovenox 30 mg SQ daily (WT < 150 kg, CrCl > 10-29 mL/min) *Enoxaparin/Lovenox 30 mg SQ BID (WT < 150 kg, CrCl > 30 mL/min) AND *Sequential Compression Device (SCD) Assessment and Plan Problem List: (1) Hypoglycemia ICD Code: E16.2 - Hypoglycemia, unspecified Status: Acute (2) HTN (hypertension) ICD Code: I10 - Essential (primary) hypertension (3) Esophageal perforation ICD Code: K22.3 - Perforation of esophagus Assessment and Plan A/P: 1. Hypoglycemia: Recurrent, family notes BS 27 at home, previous admits for same. On tube feeds via G-tube, family unsure of which one-on Glucerna 1.5 per review of records. Hold antihyperglycemics, continue D5, Accu-Cheks q2h x12h until stabilized, Diabetic Education for pt and family. 2. HTN: BP 150's while in ER, resume home medications, monitor BP. 3. H/o Esophageal Perforation: after EGD, s/p G-tube placement, recent uncomplicated G-tube exchange by IR 07/03/17, appears to be functioning properly. 4. DVT Prophylaxis: SCD/Teds 5. Social work for d/c planning as needed. 6. Case discussed w/ ER physician at length, labs/records/imaging reviewed by me. Physician Certification 2 Midnight Certification Type: Admission for Inpatient Services Order for Inpatient Services The services are ordered in accordance with Medicare regulations or non- Medicare payer requirements, as applicable. In the case of services not specified as inpatient-only, they are appropriately provided as inpatient services in accordance with the 2-midnight benchmark. Estimated LOS (days): 2 days is the estimated time the patient will need to remain in the hospital, assuming treatment plan goals are met and no additional complications. Post-Hospital Plan: Not yet determined Claudette Callahan MD Jul 14, 2017 22:37
[2017-07-14] MEDS ORDERED: DEXTROSE 50% IN WATER 50 ML VIAL(D50) IV PUSH PRN (22:45)
[2017-07-14] MEDS ORDERED: BISACODYL 10 MG SUPP RECTAL PRN (22:45)
[2017-07-14] MEDS ORDERED: SODIUM CHLORIDE 0.9% FLUSH 10 ML FLUSH IV FLUSH PRN (22:45)
[2017-07-14] MEDS ORDERED: LACTULOSE SYRUP 20 GM/30 ML CUP PO PRN (22:45)
[2017-07-14] MEDS ORDERED: MORPHINE SULFATE 2 MG/ML SYRINGE IV PUSH PRN (22:45)
[2017-07-14] MEDS ORDERED: ONDANSETRON HCL 4 MG/2 ML VIAL IVP PRN (22:45)
[2017-07-14] MEDS ORDERED: GLUCAGON 1 MG/ML VIAL OTHER PRN (22:45)
[2017-07-14] MEDS ORDERED: ACETAMINOPHEN/HYDROcodone 325 MG/5 MG TAB PO PRN (22:45)
[2017-07-14] MEDS ORDERED: MAGNESIUM HYDROXIDE SUSP 30 ML CUP PO PRN (22:45)
[2017-07-14] MEDS ORDERED: SENNOSIDES 8.6 MG TAB PO PRN (22:45)
[2017-07-14] MEDS ORDERED: ACETAMINOPHEN 325 MG TAB PO PRN (22:45)
[2017-07-15] VITALS (9 sets, daily range): BP systolic 112–150; BP diastolic 60–82; PULSE 66–91; RESP 15–22; TEMP 97.8–98.4; O2SAT 98–100
[2017-07-15] MEDS: DEXT 5%-NACL 0.45% 1000 ML INJ 1,000 ML IV SCH ×2 (05:10→12:31)
[2017-07-15] MEDS: DOCUSATE SODIUM 50 MG/SENNA 8.6 MG TAB PO SCH ×2 (07:54→21:35)
[2017-07-15] MEDS: DILTIAZEM-CD 240 MG CAP ER PO SCH (07:54)
[2017-07-15 08:45] LABS: AUTOMATED NEUTROPHIL # 3.4 TH/MM3 (1.8-7.7); BASOPHIL % 0.6 % (0.0-2.0); EOSINOPHIL # 0.1 TH/MM3 (0-0.4); EOSINOPHIL % 1.4 % (0.0-4.0); HEMATOCRIT 37.9 % (39.0-51.0); HEMOGLOBIN 12.1 GM/DL (13.0-17.0); LYMPH % 37.8 % (9.0-44.0); LYMPHOCYTE # 2.4 TH/MM3 (1.0-4.8); MEAN CELL VOLUME 89.3 FL (80.0-100.0); MEAN CORPUSCULAR HEMOGLOBIN 28.4 PG (27.0-34.0); MEAN CORPUSCULAR HGB CONC 31.8 % (32.0-36.0); MONO % 6.1 % (0.0-8.0); MONOCYTE # 0.4 TH/MM3 (0-0.9); NEUT % 54.1 % (16.0-70.0); PLATELET COUNT 242 TH/MM3 (150-450); RED BLOOD COUNT 4.25 MIL/MM3 (4.50-5.90); RED CELL DISTRIBUTION WIDTH 16.6 % (11.6-17.2); WHITE BLOOD COUNT 6.2 TH/MM3 (4.0-11.0)
[2017-07-15] MEDS: SODIUM CHLORIDE 0.9% FLUSH 10 ML FLUSH IV FLUSH SCH ×2 (08:59→21:35)
[2017-07-15 09:05] LABS: ALKALINE PHOSPHATASE 85 U/L (45-117); ALT (GPT) 26 U/L (12-78); AST (GOT) 23 U/L (15-37); BICARBONATE 23.2 MEQ/L (21.0-32.0); BLOOD UREA NITROGEN 12 MG/DL (7-18); CALCIUM 9.2 MG/DL (8.5-10.1); CHLORIDE 105 MEQ/L (98-107); CREATININE 0.56 MG/DL (0.60-1.30); GLOMERULAR FILTRATION RATE 171 ML/MIN (>89); GLUCOSE,RANDOM 89 MG/DL (74-106); SODIUM (NA) 134 MEQ/L (136-145); TOTAL BILIRUBIN ADULT 0.3 MG/DL (0.2-1.0); TOTAL PROTEIN 7.4 GM/DL (6.4-8.2)
--- NOTE | 2017-07-15 12:09 | HHI.PR ---
Subjective Remarks This is a pleasant 77 y/o male with Hypertension, CHF Echocardiogram 03/13/17 EF 50-55%, history of Esophageal perforation 02/2017, s/p PEG Tube who was brought to the ER by EMS secondary to episode of hypoglycemia, BS 27 at home per family. Recent admit 05/29-05/30/17 for similar event, and recent uncomplicated G-tube exchange by IR on 07/03/17. Pt unable to provide much history, family unsure of what tube feeds he is receiving. Per review of medical records, on Levemir 5mg hs. 07/15: Seen in his bedroom and discussed with nurse Miss Barker, I went to see his relatives but they already left, adjusted his tube feedings will continue to titrate his Insulin needs had Hypovolemia during the morning now increased blood sugars. discontinued Dextrose and started on IV Normal Saline. no nausea, vomit or diarrhea. Objective Vital Signs Date Time Temp Pulse Resp B/P (MAP) Pulse Ox O2 Delivery O2 Flow Rate FiO2 07/15/17 10:20 97.8 76 17 137/80 (99) 99 07/15/17 09:00 98.2 91 16 129/75 (93) 100 Room Air 07/15/17 08:00 84 18 98 Room Air 07/15/17 08:00 98.2 78 18 144/75 (98) 98 Room Air 07/15/17 07:00 86 17 99 Room Air 07/15/17 05:00 81 15 124/68 (86) 100 Room Air 07/15/17 03:37 (100) 07/15/17 03:00 66 20 120/60 (80) 99 Room Air 07/15/17 00:00 87 18 146/78 (100) 100 Room Air 07/14/17 20:35 19 100 07/14/17 20:33 95 19 122/61 (81) 100 Room Air 07/14/17 19:27 97.4 108 20 153/86 (108) 100 I/O 07/14/17 07/14/17 07/14/17 07/15/17 07/15/17 07/15/17 07:00 15:00 23:00 07:00 15:00 23:00 Intake Total 1000 ml Balance 1000 ml Intake IV Total 1000 ml Result Diagram: 07/15/1782507/15/17825 Imaging No new imaging studies. Procedures none Other Results Laboratory Tests Test 07/15/17 08:26 White Blood Count 6.2 TH/MM3 Red Blood Count 4.25 MIL/MM3 Hemoglobin 12.1 GM/DL Hematocrit 37.9 % Mean Corpuscular Volume 89.3 FL Mean Corpuscular Hemoglobin 28.4 PG Mean Corpuscular Hemoglobin Concent 31.8 % Red Cell Distribution Width 16.6 % Platelet Count 242 TH/MM3 Mean Platelet Volume 9.0 FL Neutrophils (%) (Auto) 54.1 % Lymphocytes (%) (Auto) 37.8 % Monocytes (%) (Auto) 6.1 % Eosinophils (%) (Auto) 1.4 % Basophils (%) (Auto) 0.6 % Neutrophils # (Auto) 3.4 TH/MM3 Lymphocytes # (Auto) 2.4 TH/MM3 Monocytes # (Auto) 0.4 TH/MM3 Eosinophils # (Auto) 0.1 TH/MM3 Basophils # (Auto) 0.0 TH/MM3 CBC Comment DIFF FINAL Differential Comment Blood Urea Nitrogen 12 MG/DL Creatinine 0.56 MG/DL Random Glucose 89 MG/DL Total Protein 7.4 GM/DL Albumin 3.0 GM/DL Calcium Level 9.2 MG/DL Alkaline Phosphatase 85 U/L Aspartate Amino Transf (AST/SGOT) 23 U/L Alanine Aminotransferase (ALT/SGPT) 26 U/L Total Bilirubin 0.3 MG/DL Sodium Level 134 MEQ/L Potassium Level 4.7 MEQ/L Chloride Level 105 MEQ/L Carbon Dioxide Level 23.2 MEQ/L Anion Gap 6 MEQ/L Estimat Glomerular Filtration Rate 171 ML/MIN Objective Remarks GENERAL: no acute distress. HEENT: PERRLA, EOMI. No scleral icterus or conjunctival pallor. No lid lag or facial droop. CARDIOVASCULAR: Regular rate and rhythm. No obvious murmurs to auscultation. No chest tenderness to palpation. RESPIRATORY: No obvious rhonchi or wheezing. Clear to auscultation. Breath sounds equal bilaterally. GASTROINTESTINAL: Abdomen soft, non-tender, nondistended. BS normal. G-tube in place. MUSCULOSKELETAL: Extremities without clubbing, cyanosis, or edema. No obvious deformities. NEUROLOGICAL: Awake, alert and oriented x4. No focal neurologic deficits. Moving both upper and lower extremities spontaneously. Medications and IVs Current Medications Medications (Trade) Dose Ordered Sig/Emma Route Start Time Stop Time Status Last Admin Dextrose/Sodium Chloride 1,000 ml @ 125 mls/hr Q8H IV 07/14/17 20:30 07/15/17 05:10 (D50w (Vial) Inj) 50 ml UNSCH PRN IV PUSH 07/14/17 22:45 07/15/17 03:06 (Glucagon Inj) 1 mg UNSCH PRN OTHER 07/14/17 22:45 (NS Flush) 2 ml UNSCH PRN IV FLUSH 07/14/17 22:45 (NS Flush) 2 ml BID IV FLUSH 07/15/17 09:00 07/15/17 08:59 (Zofran Inj) 4 mg Q6H PRN IVP 07/14/17 22:45 (Tylenol) 650 mg Q6H PRN PO 07/14/17 22:45 ([place] 5-325 Mg) 1 tab Q4H PRN PO 07/14/17 22:45 (Morphine Inj) 2 mg Q3H PRN IV PUSH 07/14/17 22:45 (Brenda-Colace) 1 tab BID PO 07/15/17 09:00 07/15/17 07:54 (Milk Of Magnesia Liq) 30 ml Q12H PRN PO 07/14/17 22:45 (Senokot) 17.2 mg Q12H PRN PO 07/14/17 22:45 (Dulcolax Supp) 10 mg DAILY PRN RECTAL 07/14/17 22:45 (Lactulose Liq) 30 ml DAILY PRN PO 07/14/17 22:45 (Cardizem Cd) 240 mg DAILY PO 07/15/17 09:00 07/15/17 07:54 (Xalatan 0.005% Opth Soln) 1 drop HS EACH EYE 07/15/17 21:00 A/P Assessment and Plan 1. Recurrent Hypoglycemia, as per family notes BS 27 at home. On tube feeds via G-tube, was on Glucerna 1.5 as per previous records Hold antihyperglycemics, Switch to Normal saline, continue tube feedings at 42 ml per hour and follow blood sugars for probable discharge tomorrow. 2. HTN: controlled. 3. H/o Esophageal Perforation: after EGD, s/p G-tube placement, recent uncomplicated G-tube exchange by IR 07/03/17, appears to be functioning properly. DVT Prophylaxis: SCD/Teds Discharge Planning Expected in am tomorrow. Alfa Mcmanus MD Jul 15, 2017 12:09
[2017-07-15] MEDS: SODIUM CHLOR 0.9% 1000 ML INJ 1,000 ML IV SCH (16:43)
[2017-07-15] MEDS: INSULIN ASPART SUPPLEMENTAL SCALE SQ SCH ×2 (16:44→21:00)
[2017-07-16] VITALS (15 sets, daily range): BP systolic 91–124; BP diastolic 51–71; PULSE 67–102; RESP 16–20; TEMP 97.8–98.2; O2SAT 98–100
[2017-07-16] MEDS: DOCUSATE SODIUM 50 MG/SENNA 8.6 MG TAB PO SCH ×2 (06:51→20:30)
[2017-07-16] MEDS: INSULIN ASPART SUPPLEMENTAL SCALE SQ SCH ×4 (08:41→20:28)
[2017-07-16] MEDS: SODIUM CHLORIDE 0.9% FLUSH 10 ML FLUSH IV FLUSH SCH ×2 (09:00→20:30)
[2017-07-16] MEDS: DILTIAZEM-CD 240 MG CAP ER PO SCH (12:30)
[2017-07-16] MEDS: SODIUM CHLOR 0.9% 1000 ML INJ 1,000 ML IV SCH (16:07)
--- NOTE | 2017-07-16 16:13 | HHI.PR ---
Subjective Remarks Patient is alert and pleasant. He complains that he is not eating solid foods and blames his low blood sugar on feeding tube feeds. He would like to attempt a swallow study so that he can resume p.o. food. Objective Vitals Vital Signs Date Time Temp Pulse Resp B/P (MAP) Pulse Ox O2 Delivery O2 Flow Rate FiO2 07/16/17 12:24 98.0 74 20 110/65 (80) 100 07/16/17 08:56 98.2 84 18 124/71 (88) 100 07/16/17 04:00 98.1 77 20 110/66 (81) 07/16/17 00:00 97.8 69 18 91/51 (64) 100 07/15/17 20:00 98.4 83 22 112/63 (79) 100 I/O 07/15/17 07/15/17 07/15/17 07/16/17 07/16/17 07/16/17 07:00 15:00 23:00 07:00 15:00 23:00 Intake Total 1000 ml Output Total 700 ml 775 ml Balance 1000 ml -700 ml -775 ml Intake IV Total 1000 ml Output Urine Total 700 ml 775 ml # Bowel Movements 1 Result Diagram: 07/15/1782507/15/17825 Objective Remarks GENERAL: Thin, small-statured man SKIN: Warm and dry. HEAD: Normocephalic. EYES: No scleral icterus. No injection or drainage. NECK: Supple, trachea midline. No JVD or lymphadenopathy. CARDIOVASCULAR: Regular rate and rhythm 1/6 VALENTÍN, RESPIRATORY: Breath sounds equal bilaterally. No accessory muscle use. GASTROINTESTINAL: Concave, abdomen soft, non-tender, nondistended. EXTREMITIES: No cyanosis, or edema. NEUROLOGICAL: Awake, alert, and oriented x 3. Non-focal. A/P Problem List: (1) Hypoglycemia ICD Code: E16.2 - Hypoglycemia, unspecified Status: Acute (2) HTN (hypertension) ICD Code: I10 - Essential (primary) hypertension (3) Esophageal perforation ICD Code: K22.3 - Perforation of esophagus Assessment and Plan Recurrent hypoglycemia Patient feels that his tube feedings does not agree with his overall metabolism Monitor blood sugar closely until normalized We will attempt solid food again h/o esophageal perforation Patient had an esophageal perforation following an EGD last March Tissues should be healed by now, patient passed swallow evaluation today Resume diet. Soft food recommended Hypertension Well-controlled on home medications DVT prophylaxis SCDs Atilio Garza MD Jul 16, 2017 16:13
[2017-07-16] MEDS: LATANOPROST 0.005% OPHT SOLN 2.5 ML BTL EACH EYE SCH ×2 (20:30)
[2017-07-17] VITALS (10 sets, daily range): BP systolic 92–125; BP diastolic 51–62; PULSE 66–88; RESP 14–18; TEMP 97.7–98.4; O2SAT 97–100
[2017-07-17 06:53] LABS: BICARBONATE 22.6 MEQ/L (21.0-32.0); CALCIUM 8.8 MG/DL (8.5-10.1); CREATININE 0.68 MG/DL (0.60-1.30)
[2017-07-17] MEDS: INSULIN ASPART SUPPLEMENTAL SCALE SQ SCH ×4 (07:54→21:00)
[2017-07-17] MEDS: SODIUM CHLORIDE 0.9% FLUSH 10 ML FLUSH IV FLUSH SCH ×2 (07:55→21:00)
[2017-07-17] MEDS: DILTIAZEM-CD 240 MG CAP ER PO SCH (07:55)
[2017-07-17] MEDS: DOCUSATE SODIUM 50 MG/SENNA 8.6 MG TAB PO SCH ×2 (07:57→21:00)
--- NOTE | 2017-07-17 13:51 | HHI.PR ---
Subjective Remarks BP borderline low. Patient now is eating his meals as per RN - hypoglycemia resolved. Denies cp/sob. Objective Vitals Vital Signs Date Time Temp Pulse Resp B/P (MAP) Pulse Ox O2 Delivery O2 Flow Rate FiO2 07/17/17 12:04 98.2 75 18 102/58 (73) 100 07/17/17 08:00 87 07/17/17 07:57 98.4 73 16 107/58 (74) 100 07/17/17 04:00 98.0 88 14 97/52 (67) 100 07/17/17 04:00 70 07/17/17 00:00 98.2 78 14 114/60 (78) 99 07/17/17 00:00 66 07/16/17 20:00 67 07/16/17 20:00 98.1 72 16 115/64 (81) 100 07/16/17 16:13 97.8 74 18 92/63 (73) 98 07/16/17 16:00 81 07/16/17 15:00 82 07/16/17 14:00 102 I/O 07/16/17 07/16/17 07/16/17 07/17/17 07/17/17 07/17/17 07:00 15:00 23:00 07:00 15:00 23:00 Intake Total 1790 ml 240 ml Output Total 775 ml 400 ml 350 ml 650 ml Balance -775 ml 1390 ml -350 ml -410 ml Intake Oral 240 ml 240 ml IV Total 1000 ml Tube Feeding 400 ml Tube Irrigant 150 ml Output Urine Total 775 ml 400 ml 350 ml 650 ml # Voids 2 # Bowel Movements 1 Result Diagram: 07/15/17 0826 07/17/17 0558 Objective Remarks GENERAL: Thin, small-statured man SKIN: Warm and dry. HEAD: Normocephalic. EYES: No scleral icterus. No injection or drainage. NECK: Supple, trachea midline. No JVD or lymphadenopathy. CARDIOVASCULAR: Regular rate and rhythm 1/6 VALENTÍN, RESPIRATORY: Breath sounds equal bilaterally. No accessory muscle use. GASTROINTESTINAL: Concave, abdomen soft, non-tender, nondistended. EXTREMITIES: No cyanosis, or edema. NEUROLOGICAL: Awake, alert, and oriented x 3. Non-focal. Medications and IVs Current Medications Medications (Trade) Dose Ordered Sig/Emma Route Start Time Stop Time Status Last Admin (D50w (Vial) Inj) 50 ml UNSCH PRN IV PUSH 07/14/17 22:45 07/15/17 03:06 (Glucagon Inj) 1 mg UNSCH PRN OTHER 07/14/17 22:45 (NS Flush) 2 ml UNSCH PRN IV FLUSH 07/14/17 22:45 (NS Flush) 2 ml BID IV FLUSH 07/15/17 09:00 07/15/17 21:35 (Zofran Inj) 4 mg Q6H PRN IVP 07/14/17 22:45 (Tylenol) 650 mg Q6H PRN PO 07/14/17 22:45 ([place] 5-325 Mg) 1 tab Q4H PRN PO 07/14/17 22:45 (Morphine Inj) 2 mg Q3H PRN IV PUSH 07/14/17 22:45 (Brenda-Colace) 1 tab BID PO 07/15/17 09:00 07/15/17 21:35 (Milk Of Magnesia Liq) 30 ml Q12H PRN PO 07/14/17 22:45 (Senokot) 17.2 mg Q12H PRN PO 07/14/17 22:45 (Dulcolax Supp) 10 mg DAILY PRN RECTAL 07/14/17 22:45 (Lactulose Liq) 30 ml DAILY PRN PO 07/14/17 22:45 (Cardizem Cd) 240 mg DAILY PO 07/15/17 09:00 07/17/17 07:55 (Xalatan 0.005% Opth Soln) 1 drop HS EACH EYE 07/15/17 21:00 07/16/17 20:30 Sodium Chloride 1,000 ml @ 42 mls/hr [id number] IV 07/15/17 17:00 07/16/17 16:07 (NovoLOG SUPPLEMENTAL SCALE) 1 ACHS SLIDING SCALE SQ 07/15/17 17:00 07/17/17 12:14 A/P Problem List: (1) Hypoglycemia ICD Code: E16.2 - Hypoglycemia, unspecified Status: Acute (2) HTN (hypertension) ICD Code: I10 - Essential (primary) hypertension (3) Esophageal perforation ICD Code: K22.3 - Perforation of esophagus Assessment and Plan Hypoglycemia resolving, patient's blood sugars now severely elevated hold Cardizem since bp borderline low. Patient is eating soft diet. DC IV fluids SCD's for DVt prophylaxis Discharge Planning DC in am if blood sugars stable and bp stable. Problem Qualifiers (1) HTN (hypertension): Qualified Codes: I10 - Essential (primary) hypertension Grant Flannery MD Jul 17, 2017 13:51
[2017-07-17] MEDS ORDERED: LANCETS1 MI1 (15:12)
[2017-07-17] MEDS ORDERED: NOVOLOGP2 SQ (15:12)
[2017-07-17] MEDS ORDERED: INSU1MIS15 (15:12)
--- NOTE | 2017-07-17 15:15 | HHI.DCPOC ---
Discharge Care Plan Diagnosis: (1) Cachexia (2) Hyponatremia (3) Hypoglycemia (4) Diabetes (5) HTN (hypertension) (6) Esophageal perforation Goals to Promote Your Health * To prevent worsening of your condition and complications * To maintain your health at the optimal level Directions to Meet Your Goals Take your medications as prescribed Follow your dietary instruction Follow activity as directed Keep your appointments as scheduled Take your immunizations and boosters as scheduled If your symptoms worsen call your PCP, if no PCP go to Urgent Care Center or Emergency Room Smoking is Dangerous to Your Health. Avoid second hand smoke Call the 24-hour hour crisis hotline for domestic abuse at Grant Flannery MD Jul 17, 2017 15:15
[2017-07-17] MEDS: LATANOPROST 0.005% OPHT SOLN 2.5 ML BTL EACH EYE SCH (21:00)
[2017-07-18] VITALS (7 sets, daily range): BP systolic 105–121; BP diastolic 54–66; PULSE 73–92; RESP 16–20; TEMP 97.5–98.8; O2SAT 97–100
--- NOTE | 2017-07-18 05:46 | HHI.FF ---
Face to Face Verification Diagnosis: (1) Diabetes (2) Esophageal perforation Physical Therapy Order: Evaluate and Treat, Improve ambulation, Strength and gait training Home Health Nursing Order: Medical education Diabetic education Nursing assessment with vital signs I have seen patient Atilio Hernandez on 07/18/17. My clinical findings support the need for the requested home health care services because: Deconditioned w/ increased weakness I certify that my clinical findings support that this patient is homebound because: Need for psychosocial assistance Jose San MD Jul 18, 2017 05:46
[2017-07-18] MEDS: DOCUSATE SODIUM 50 MG/SENNA 8.6 MG TAB PO SCH (08:57)
[2017-07-18] MEDS: INSULIN ASPART SUPPLEMENTAL SCALE SQ SCH ×3 (08:58→17:18)
[2017-07-18] MEDS: SODIUM CHLORIDE 0.9% FLUSH 10 ML FLUSH IV FLUSH SCH (08:59)
--- NOTE | 2017-07-18 11:24 | HHI.PR ---
Subjective Remarks Doing ok states FS low and high at home. Uses insulin TID but unable to clarify what he is using Objective Vitals Vital Signs Date Time Temp Pulse Resp B/P (MAP) Pulse Ox O2 Delivery O2 Flow Rate FiO2 07/18/17 08:00 98.5 92 20 105/55 (72) 97 07/18/17 08:00 Room Air 07/18/17 04:00 97.6 78 16 114/57 (76) 100 07/18/17 03:46 73 07/18/17 01:15 98.8 75 16 113/54 (73) 97 07/18/17 00:00 Room Air 07/17/17 23:33 85 07/17/17 20:30 98.3 67 16 125/62 (83) 97 07/17/17 20:30 Room Air 07/17/17 16:00 80 07/17/17 15:40 97.7 80 18 92/51 (65) 100 07/17/17 12:04 98.2 75 18 102/58 (73) 100 07/17/17 12:00 85 I/O 07/17/17 07/17/17 07/17/17 07/18/17 07/18/17 07/18/17 07:00 15:00 23:00 07:00 15:00 23:00 Intake Total 240 ml 570 ml 200 ml Output Total 350 ml 850 ml 600 ml Balance -350 ml -610 ml 570 ml -400 ml Intake Oral 240 ml 240 ml 200 ml IV Total 330 ml Output Urine Total 350 ml 850 ml 600 ml Result Diagram: 07/15/17 0826 07/17/17 0558 Objective Remarks GENERAL: Thin, small-statured man SKIN: Warm and dry. HEAD: Normocephalic. EYES: No scleral icterus. No injection or drainage. NECK: Supple, trachea midline. No JVD or lymphadenopathy. CARDIOVASCULAR: Regular rate and rhythm 1/6 VALENTÍN, RESPIRATORY: Breath sounds equal bilaterally. No accessory muscle use. GASTROINTESTINAL: Concave, abdomen soft, non-tender, nondistended. EXTREMITIES: No cyanosis, or edema. NEUROLOGICAL: Awake, alert, and oriented x 3. Non-focal. Procedures none A/P Problem List: (1) Hypoglycemia ICD Code: E16.2 - Hypoglycemia, unspecified Status: Acute (2) HTN (hypertension) ICD Code: I10 - Essential (primary) hypertension (3) Esophageal perforation ICD Code: K22.3 - Perforation of esophagus Assessment and Plan Hypoglycemia resolving, patient's blood sugars now elevated history of diabetes will continue Levemir 5 units at bedtime with sliding scale coverage. Verified with patient's pharmacy patient on Levemir 5 units Hypertension. Hold Cardizem since bp borderline low. FEN. Continue soft diet and tube feeding secondary to history of esophageal perforation during EGD. Outpatient follow-up with PCP/GI to consider discontinuation of PEG SCD's for DVt prophylaxis Discharge Planning DC today Problem Qualifiers (1) HTN (hypertension): Qualified Codes: I10 - Essential (primary) hypertension Jose San MD Jul 18, 2017 11:24
--- NOTE | 2017-07-18 17:50 | HHI.DS ---
Discharge Summary Admission Date Jul 14, 2017 at 22:33 Discharge Date: Jul 18, 2017 Admitting Diagnosis Hypoglycemia. History of diabetes. (1) Hypoglycemia ICD Code: E16.2 - Hypoglycemia, unspecified Diagnosis: Principal Status: Acute (2) HTN (hypertension) ICD Code: I10 - Essential (primary) hypertension Diagnosis: Principal (3) Esophageal perforation ICD Code: K22.3 - Perforation of esophagus Diagnosis: Principal Procedures none Brief History - From Admission This is a 77-year-old male with a PMH of HTN, CHF (Echo 03/13/2017 w/ EF 50-55%) , h/o Esophageal Perforation 02/2017, s/p PEG Tube who was brought to the ER by EMS secondary to episode of hypoglycemia, BS 27 at home per family. Recent admit 05/29-05/30/17 for similar event, and recent uncomplicated G-tube exchange by IR on 07/03/17. Pt unable to provide much history, family unsure of what tube feeds he is receiving. Per review of medical records, on Levemir 5mg hs. While in ER w/ recurrent hypoglycemia, currently on D5. BP 153/86, HR 108, O2 sat 100% RA, Afebrile. CBC unremarkable. Chemistry essentially unremarkable. CBC/BMP: 07/15/17 0826 07/17/17 0558 Significant Findings Laboratory Tests Test 07/17/17 05:58 Blood Urea Nitrogen 21 MG/DL (7-18) Random Glucose 209 MG/DL (74-106) PE at Discharge GENERAL: Thin, small-statured man SKIN: Warm and dry. HEAD: Normocephalic. EYES: No scleral icterus. No injection or drainage. NECK: Supple, trachea midline. No JVD or lymphadenopathy. CARDIOVASCULAR: Regular rate and rhythm 1/6 VALENTÍN, RESPIRATORY: Breath sounds equal bilaterally. No accessory muscle use. GASTROINTESTINAL: Concave, abdomen soft, non-tender, nondistended. EXTREMITIES: No cyanosis, or edema. NEUROLOGICAL: Awake, alert, and oriented x 3. Non-focal. Hospital Course Hypoglycemia resolving, patient's blood sugars now elevated history of diabetes will continue Levemir 5 units at bedtime with sliding scale coverage. Verified with patient's pharmacy patient on Levemir 5 units. Diabetic education. Hypoglycemia protocol Hypertension. Hold Cardizem since bp borderline low. FEN. Continue soft diet and tube feeding secondary to history of esophageal perforation during EGD. Outpatient follow-up with PCP/GI to consider discontinuation of PEG SCD's for DVt prophylaxis Pt Condition on Discharge: Stable Discharge Disposition: Disch w/ Home Health Serv Discharge Time: > 30 minutes Discharge Instructions DIET: Follow Instructions for: Diabetic Diet, On Tube Feeding Speech Therapy-Diet Recommends: Mechanical Soft Activities you can perform: Regular-No Restrictions Activities to Avoid: Driving Follow up Referrals: PCP Follow-up - 3-5 Days PCP Follow-up @ [facility] New Medications: Insulin Aspart Inj (Novolog Inj) 1,000 Unit/10 Ml Vial 2-12 UNITS SQ ACHS for Blood Sugar Management, #10 ML 0 Refills Max dose at bedtime ( ) units; sugars less than 70,(0) units; sugars 150-199,(2) units; sugars 200-249,(4) units; sugars 250-299,(7) units; sugars 300-349,(10) units; sugars greater than 349,(12)units Insulin Syringe/U-100/31G X 5/16" 1 ml (Insulin Syringe/U-100/31G X 5/16" 1 ml) 31 Gauge X 5/16" Mis EA .XX DIRECTED for Blood Sugar Management, #100 0 Refills Lancets (Lancets) 1 Mis Mis EA .XX DIRECTED for Blood Sugar Management, #100 0 Refills Continued Medications: Diltiazem ER 24 HR (Diltiazem ER 24 HR) 240 Mg Michael 240 MG PEG DAILY, #30 TAB 0 Refills Insulin Detemir Inj (Levemir Inj) 1,000 unit/ 10 ML Vial 5 UNITS SQ HS for diabetes for 30 Days, INJECTION 0 Refills Do not mix with any other Insulin. Latanoprost Opth Drops (Latanoprost Opth Drops) 0.005% Drops 1 DROP EACH EYE HS for Glaucoma, #2.5 ML 0 Refills Refrigerate until opened. Thiamine (Vitamin B-1) 100 Mg Tab 100 MG PEG DAILY for Nutritional Supplement, TAB 0 Refills [Albuterol-Ipratropium Neb] () 1 AMPULE NEBU 1 AMPULE NEB Q6HR NEB PRN for SHORTNESS OF BREATH for 5 Days, 0 Refills Discontinued Medications: Clonidine 168 HR Patch ([id number] 168 HR Patch) 0.3 Mg/24 Hr Patch 1 PATCH T-DERMAL Q7D for hypertension for 30 Days, PATCH 0 Refills Jose San MD Jul 18, 2017 17:50
[2017-07-18] MEDS ORDERED: INSULIN DETEMIR 100 UNITS/ML VIAL SQ SCH (21:00)
== END 2017-07-18 18:01 | disposition home health service (06) | DRG 638 ==
LOC: NEPC 19:20 → NEDA 22:33 → NEDH 07-15 02:35 → HCIN 07-15 10:33 → N04A 07-17 20:18
PROVIDERS: ADMIT Internal Medicine; ATTEND Internal Medicine
DX: E11.649 Type 2 diabetes mellitus with hypoglycemia without coma (principal); E87.1 Hypo-osmolality and hyponatremia; R64 Cachexia; I11.0 Hypertensive heart disease with heart failure; I50.9 Heart failure, unspecified; F03.90 Unspecified dementia, unspecified severity, without behavioral disturbance, psychotic disturbance, mood disturbance, and anxiety; R13.10 Dysphagia, unspecified; Z68.1 Body mass index [BMI] 19.9 or less, adult; K21.9 Gastro-esophageal reflux disease without esophagitis; H40.9 Unspecified glaucoma; Z79.4 Long term (current) use of insulin; Z93.1 Gastrostomy status
CPT/HCPCS: 80048; 80053; 82948; 85025; 96365; 96366; J1815; J7030

== ENCOUNTER 2017-07-21 04:19 | Emergency (ER) | payer MEDICARE, OTHER ==
[~2017-07-21] VITALS: Ht 165.1 cm; Wt 35.0 kg
[~2017-07-21 04:19] MED LIST changes: -CLON.3T T-DERMAL; +INSU1MIS15; +LANCETS1 MI1; +NOVOLOGP2 SQ
[2017-07-21 04:29] VITALS: BP 168/91; PULSE 116; RESP 20; TEMP 97.1; O2SAT 100
[2017-07-21] MEDS ORDERED: SODIUM CHLORIDE 0.9% FLUSH 10 ML FLUSH IVF PRN (04:30)
--- NOTE | 2017-07-21 04:33 | PD ---
HPI Chief Complaint: Diabetic Time Seen by Provider: 04:21 Travel History International Travel<30 days: No Contact w/Intl Traveler<30days: No Traveled to known affect area: No History of Present Illness HPI The patient is a 77-year-old male who presents to the emergency department via EMS for hypoglycemia. EMS states that they received a call because the patient appear to be having a seizure at home which shaking. When EMS arrived the patient's blood sugar was noted to be 18. The patient was administered D10 via IV by EMS which brought his blood sugar up to 140. The patient does have a history of diabetes with recurrent hypoglycemia at home was recently hospitalized earlier in June for hypoglycemia. The patient was discharged home on July 18. Per EMS the patient did receive his insulin earlier tonight prior to eating, and then was covered with insulin once again after eating. The patient does not recall how much insulin he received from family members. He does complain of being cold, EMS states that the patient's clothing was soaked in sweat from his episode of hypoglycemia. He does complain of diffuse body aches but denies any specific headache, chest pain, shortness of breath, nausea, vomiting, or abdominal pain. Patient does have a history of esophageal perforation and was being fed via gastrostomy tube. However, the patient is recently transitioned to oral intake as well as gastrostomy feeds. PFSH Past Medical History Arthritis: No Asthma: No Autoimmune Disease: No Blood Disorders: No Heart Rhythm Problems: No Cancer: No Cardiovascular Problems: Yes High Cholesterol: No Chemotherapy: No Congestive Heart Failure: Yes COPD: No Cerebrovascular Accident: No Dementia: Yes Diabetes: Yes Diminished Hearing: No Endocrine: Yes Gastrointestinal Disorders: Yes (trouble swallowing/dysphagia) GERD: Yes Glaucoma: Yes Genitourinary: Yes Hepatitis: No Hiatal Hernia: No Hypertension: Yes Immune Disorder: No Implanted Vascular Access Dvce: Yes Kidney Stones: No Musculoskeletal: Yes Neurologic: Yes (dementia) Psychiatric: No Reproductive: No Respiratory: No Myocardial Infarction: No Radiation Therapy: No Renal Failure: Yes Seizures: Yes Sickle Cell Disease: No Sleep Apnea: No Thyroid Disease: No Ulcer: No Past Surgical History Abdominal Surgery: Yes (g tube placement) AICD: No Arteriovenous Shunt: No Body Medical Devices: g tube Genitourinary Surgery: No Insulin Pump: No Joint Replacement: No Pacemaker: No Other Surgery: Yes Social History Alcohol Use: Yes (ocassionally) Tobacco Use: No Substance Use: Yes (in past/etoh in past) Allergies-Medications (Allergen,Severity, Reaction): Coded Allergies: No Known Allergies (Verified Allergy, Severe, 07/21/17) Reported Meds & Prescriptions Reported Meds & Active Scripts Active Lancets 1 Mis Mis Ea .XX DIRECTED Insulin Syringe/U-100/31G X 5/16" 1 ml 31 Gauge X 5/16" Mis Ea .XX DIRECTED Novolog Inj (Insulin Aspart) 1,000 Unit/10 Ml Vial 2-12 Units SQ ACHS Max dose at bedtime ( ) units; sugars less than 70,(0) units; sugars 150-199,(2) units; sugars 200-249,(4) units; sugars 250-299,(7) units; sugars 300-349,(10) units; sugars greater than 349,(12)units Levemir Inj (Insulin Detemir) 1,000 unit/ 10 ML Vial 5 Units SQ HS 30 Days Do not mix with any other Insulin. [Albuterol-Ipratropium Neb] 1 AMPULE Nebu 1 Ampule NEB Q6HR NEB PRN 5 Days Reported Vitamin B-1 (Thiamine HCl) 100 Mg Tab 100 Mg PEG DAILY Diltiazem ER 24 HR 240 Mg Michael 240 Mg PEG DAILY Latanoprost Opth Drops (Latanoprost) 0.005% Drops 1 Drop EACH EYE HS Refrigerate until opened. Review of Systems Except as stated in HPI: all other systems reviewed are Neg General / Constitutional: No: Fever HENT: No: Headaches, Lightheadedness Cardiovascular: Positive: Diaphoresis, No: Chest Pain or Discomfort Respiratory: No: Shortness of Breath Gastrointestinal: No: Nausea, Vomiting Musculoskeletal: Positive: Weakness Neurologic: Positive: Change in Mentation Physical Exam Narrative GENERAL: Awake, alert, 77-year-old male who appears his stated age and is in no acute respiratory distress. Clothing was noted to be drenched and skin cool to the touch. Cachectic build. Shivering upon arrival. SKIN: Focused skin assessment warm/dry. HEAD: Atraumatic. Normocephalic. EYES: Pupils equal and round. 3 mm bilateral and reactive. Pterygium noted on the left eye. ENT: No nasal bleeding or discharge. Poor dentition. NECK: Trachea midline. No JVD. CARDIOVASCULAR: Regular, tachycardic with a heart rate of 105. RESPIRATORY: No accessory muscle use. Clear to auscultation. Breath sounds equal bilaterally. GASTROINTESTINAL: Abdomen soft, non-tender, nondistended. Feeding tube in place. MUSCULOSKELETAL: No obvious deformities. No clubbing. No cyanosis. No edema. Thin extremities with positive pulses. NEUROLOGICAL: Awake and alert. No obvious cranial nerve deficits. Motor grossly within normal limits. Normal speech. Oriented to person, month, and year. PSYCHIATRIC: Appropriate mood and affect; insight and judgment normal. Data Data Last Documented VS Vital Signs Date Time Temp Pulse Resp B/P (MAP) Pulse Ox O2 Delivery O2 Flow Rate FiO2 07/21/17 07:09 07/21/17 06:02 106 20 100 Room Air 07/21/17 04:29 97.1 Orders Orders Electrocardiogram (07/21/17 04:28) Complete Blood Count With Diff (07/21/17 04:28) Comprehensive Metabolic Panel (07/21/17 04:28) Magnesium (Mg) (07/21/17 04:28) Lactic Acid (07/21/17 04:28) Urinalysis - C+S If Indicated (07/21/17 04:28) Blood Glucose (07/21/17 04:28) Blood Glucose (07/21/17 04:58) Ecg Monitoring (07/21/17 04:28) Iv Access Insert/Monitor (07/21/17 04:28) Oximetry (07/21/17 04:28) Sodium Chloride 0.9% Flush (Ns Flush) (07/21/17 04:30) Ed Discharge Order (07/21/17 06:05) Labs Laboratory Tests Test 07/21/17 04:35 White Blood Count 8.3 TH/MM3 Red Blood Count 4.00 MIL/MM3 Hemoglobin 11.4 GM/DL Hematocrit 35.6 % Mean Corpuscular Volume 88.8 FL Mean Corpuscular Hemoglobin 28.4 PG Mean Corpuscular Hemoglobin Concent 32.0 % Red Cell Distribution Width 16.8 % Platelet Count 284 TH/MM3 Mean Platelet Volume 9.4 FL Neutrophils (%) (Auto) 62.7 % Lymphocytes (%) (Auto) 27.8 % Monocytes (%) (Auto) 7.7 % Eosinophils (%) (Auto) 1.3 % Basophils (%) (Auto) 0.5 % Neutrophils # (Auto) 5.2 TH/MM3 Lymphocytes # (Auto) 2.3 TH/MM3 Monocytes # (Auto) 0.6 TH/MM3 Eosinophils # (Auto) 0.1 TH/MM3 Basophils # (Auto) 0.0 TH/MM3 CBC Comment DIFF FINAL Differential Comment Blood Urea Nitrogen 23 MG/DL Creatinine 0.65 MG/DL Random Glucose 140 MG/DL Total Protein 8.0 GM/DL Albumin 3.4 GM/DL Calcium Level 9.4 MG/DL Magnesium Level 1.9 MG/DL Alkaline Phosphatase 82 U/L Aspartate Amino Transf (AST/SGOT) 15 U/L Alanine Aminotransferase (ALT/SGPT) 20 U/L Total Bilirubin 0.2 MG/DL Sodium Level 139 MEQ/L Potassium Level 3.8 MEQ/L Chloride Level 102 MEQ/L Carbon Dioxide Level 26.3 MEQ/L Anion Gap 11 MEQ/L Estimat Glomerular Filtration Rate 144 ML/MIN Lactic Acid Level 2.7 mmol/L MDM Medical Decision Making Medical Screen Exam Complete: Yes Emergency Medical Condition: Yes Medical Record Reviewed: Yes Interpretation(s) EKG reveals a normal sinus rhythm with a rate of 98. Wavy baseline secondary to shivering. Laboratory Tests Test 07/21/17 04:35 White Blood Count 8.3 TH/MM3 Red Blood Count 4.00 MIL/MM3 Hemoglobin 11.4 GM/DL Hematocrit 35.6 % Mean Corpuscular Volume 88.8 FL Mean Corpuscular Hemoglobin 28.4 PG Mean Corpuscular Hemoglobin Concent 32.0 % Red Cell Distribution Width 16.8 % Platelet Count 284 TH/MM3 Mean Platelet Volume 9.4 FL Neutrophils (%) (Auto) 62.7 % Lymphocytes (%) (Auto) 27.8 % Monocytes (%) (Auto) 7.7 % Eosinophils (%) (Auto) 1.3 % Basophils (%) (Auto) 0.5 % Neutrophils # (Auto) 5.2 TH/MM3 Lymphocytes # (Auto) 2.3 TH/MM3 Monocytes # (Auto) 0.6 TH/MM3 Eosinophils # (Auto) 0.1 TH/MM3 Basophils # (Auto) 0.0 TH/MM3 CBC Comment DIFF FINAL Differential Comment Blood Urea Nitrogen 23 MG/DL Creatinine 0.65 MG/DL Random Glucose 140 MG/DL Total Protein 8.0 GM/DL Albumin 3.4 GM/DL Calcium Level 9.4 MG/DL Magnesium Level 1.9 MG/DL Alkaline Phosphatase 82 U/L Aspartate Amino Transf (AST/SGOT) 15 U/L Alanine Aminotransferase (ALT/SGPT) 20 U/L Total Bilirubin 0.2 MG/DL Sodium Level 139 MEQ/L Potassium Level 3.8 MEQ/L Chloride Level 102 MEQ/L Carbon Dioxide Level 26.3 MEQ/L Anion Gap 11 MEQ/L Estimat Glomerular Filtration Rate 144 ML/MIN Lactic Acid Level 2.7 mmol/L Differential Diagnosis Differential diagnosis includes hypoglycemia, medication side effect, insulin side effect, dehydration, electrolyte abnormality, sepsis. Narrative Course Bedside Accu-Chek was obtained with the patient arrived, was 145. Labs were drawn and sent. The patient's wet clothing was removed and the patient was covered with a gown and warm blankets. Patient was placed on cardiac telemetry monitoring and continuous pulse oximetry monitoring. Accu-Chek every 30 minutes 2 was ordered. Repeat blood sugar 30 minutes later at 5 AM was 74. The patient was given a meal and repeat blood sugar at 30 minutes was ordered. Patient's blood glucose on initial BMP was 140. Lactic acid was mildly elevated at 2.7. BUN was slightly elevated. The patient's blood sugar was checked once again at 5:30 AM, was 77. The patient felt "good ". Therefore, after discussion with the family it was agreed we would recheck a blood sugar at 6 AM. If it continues to improve and does not less than the patient will be discharged home with outpatient follow-up with endocrinology. Repeat blood sugar at 6 AM was 91. The patient is awake, alert, and feels improved. The patient was administered a breakfast tray and will be discharged home. We will attempt to provide the patient a name of an marketing administrative assistant that he may follow up with on an outpatient basis. They are advised to not give any sliding scale insulin today and less blood sugars greater than 250. The patient's Accu-Chek at 6:30 AM was 102. Patient is stable for discharge. Diagnosis Primary Impression: Hypoglycemia Referrals: Jayden Quijano MD call for appointment Patient Instructions: General Instructions Additional Instructions: No sliding scale insulin today and less blood sugars greater than 250. Decrease sliding scale insulin at night by one half. Follow-up with endocrinology. Return immediately if symptoms worsen or progress. Med/Other Pt SpecificInfo: Existing Med Changed (No sliding scale insulin today and less blood sugars greater than 250. Decrease sliding scale insulin at night by one half.) Disposition: 01 DISCHARGE HOME Condition: Stable Brendan Coats MD Jul 21, 2017 04:33
[2017-07-21 05:05] LABS: AUTOMATED NEUTROPHIL # 5.2 TH/MM3 (1.8-7.7); BASOPHIL % 0.5 % (0.0-2.0); EOSINOPHIL # 0.1 TH/MM3 (0-0.4); EOSINOPHIL % 1.3 % (0.0-4.0); HEMATOCRIT 35.6 % (39.0-51.0); HEMOGLOBIN 11.4 GM/DL (13.0-17.0); LYMPH % 27.8 % (9.0-44.0); LYMPHOCYTE # 2.3 TH/MM3 (1.0-4.8); MEAN CELL VOLUME 88.8 FL (80.0-100.0); MEAN CORPUSCULAR HEMOGLOBIN 28.4 PG (27.0-34.0); MEAN PLATELET VOLUME 9.4 FL (7.0-11.0); MONO % 7.7 % (0.0-8.0); MONOCYTE # 0.6 TH/MM3 (0-0.9); NEUT % 62.7 % (16.0-70.0); PLATELET COUNT 284 TH/MM3 (150-450); RED CELL DISTRIBUTION WIDTH 16.8 % (11.6-17.2); WHITE BLOOD COUNT 8.3 TH/MM3 (4.0-11.0)
[2017-07-21 05:07] VITALS: BP 116/71; PULSE 98; RESP 20; O2SAT 100
[2017-07-21 05:24] LABS: ALBUMIN 3.4 GM/DL (3.4-5.0); ALT (GPT) 20 U/L (12-78); AST (GOT) 15 U/L (15-37); BICARBONATE 26.3 MEQ/L (21.0-32.0); BLOOD UREA NITROGEN 23 MG/DL (7-18); CALCIUM 9.4 MG/DL (8.5-10.1); CHLORIDE 102 MEQ/L (98-107); CREATININE 0.65 MG/DL (0.60-1.30); GLOMERULAR FILTRATION RATE 144 ML/MIN (>89); GLUCOSE,RANDOM 140 MG/DL (74-106); MAGNESIUM 1.9 MG/DL (1.5-2.5); SODIUM (NA) 139 MEQ/L (136-145)
[2017-07-21 05:26] LABS: ALKALINE PHOSPHATASE 82 U/L (45-117); TOTAL BILIRUBIN ADULT 0.2 MG/DL (0.2-1.0)
[2017-07-21 06:02] VITALS: BP 120/81; PULSE 106; RESP 20; O2SAT 100
--- NOTE | 2017-07-21 13:48 | EKG ---
Date Performed: 07/21/2017 Time Performed: 04:45:24 PTAGE: 77 years EKG: Sinus rhythm NORMAL ECG PREVIOUS TRACING : 05/28/2017 20.34 Since the previous tracing, no significant change noted DOCTOR: Aleksey Cantu Interpretating Date/Time 07/21/2017 13:45:27
== END 2017-07-21 07:19 | disposition home or self-care (01) ==
LOC: NEPC 04:19
DX: E11.649 Type 2 diabetes mellitus with hypoglycemia without coma (principal); I11.0 Hypertensive heart disease with heart failure; I50.9 Heart failure, unspecified; Z79.4 Long term (current) use of insulin
CPT/HCPCS: 80053; 83605; 83735; 85025; 93005; 99284